=== PATIENT | male | born 1960 | race Caucasian/White ===

== ENCOUNTER 2017-09-16 09:09 | Emergency (ER) | payer SELFPAY ==
[2017-09-16 09:23] VITALS: BP 153/81; PULSE 77; RESP 20; TEMP 36.6; O2SAT 99; BMI 22.1
--- NOTE | 2017-09-16 09:28 | XR_ITS ---
XR chest 2V HISTORY: ITS.REASON: congestion ORDERING PHYSICIAN: Abigail Marks PATIENT AGE: 57 years COMPARISON: 03/24/2016 FINDINGS: The cardiomediastinal silhouette and pulmonary vascularity are within normal limits. No lobar consolidation or collapse is evident. There is hyperinflation with attenuation of the peripheral pulmonary vessels consistent with COPD/emphysema. There are apical blebs. Suture line is present in the left upper lobe. No definite pneumothorax. No significant change from the previous exam. There are mild degenerative changes in the thoracic spine. A nonspecific nodular opacity overlies the fifth interspace on the left anteriorly similar to previous exam and may be due to nipple shadow.. No acute bony abnormalities. IMPRESSION: 1. No acute finding. 2. COPD/emphysema with biapical blebs
--- NOTE | 2017-09-16 09:28 | HMH.EDUTC ---
[facility] [place] Impression: Sinusitis Clinical Impression: (Ruled Out): Upper respiratory infection Disposition: Home, Self-Care Condition on Discharge: Good Instructions: Sinus Headache, DI for Sinusitis Additional Instructions: Sinus infection Start antibiotic. Sinus infections may take 2-3 days to notice much improvement so be sure to use conservative measures as discussed for symptoms Lots of Fluids Sleep elevated Humidifer/vaporizer You recieved and injection in the office today, Start your prescription antibiotics tomorrow as a continue to care Prescriptions: Albuterol Sulfate [Albuterol HFA Inhaler] 2 puffs IH Q6HP PRN #1 inh PRN Reason: Shortness Of Breath Or Wheezing cephALEXin [Keflex 500mg Cap] 500 mg PO Q6H #28 cap Forms: Work/School Release Time of Disposition: 10:22 Medical Decision Making - Medical Records Medical records reviewed: Yes: I reviewed the patient's medical records. Vital Signs: 09/16/17 09:23 Temperature 97.8 F Temperature Source Temporal Artery Scan Pulse Rate [Right] 77 Respiratory Rate 20 Blood Pressure [Right Arm] 153/81 Blood Pressure Mean [Right Arm] 105 Blood Pressure Source [Right Arm] Automatic Cuff Blood Pressure Position [Right Arm] Sitting 02 Sat by Pulse Oximetry 99 Oxygen Delivery Method Room Air - Radiology Data #1 Image(s): Chest Image Reviewed: Yes I discussed the image results w/the radiologist - Lyle Inquiry Pt receiving controlled substance: No Lyle was queried for this patient: No [facility] [place] - General Stated complaint: congestion Mode of Arrival: Ambulatory Source of Information: Patient Limitations: No Limitations Description of Symptoms (Recalled from Triage Doc. by RN): CONGESTION X1 WEEK HEENT Symptoms (Recalled from RN notes): Yes Resp Symptoms (Recalled from RN notes): No Skin Symptoms (Recalled from RN notes): No MS Symptoms (Recalled from RN notes): No Functional Status (Recalled from RN notes): N - History of Present Illness Provider Complaint: Patient state that he has been having cough and congestion now for over a week State that his head and sinuses feels congested and he is having drainage State that he has been having a productive cough but not sure what color it is he has been coughing up and cough is worse in the morning after he wakes up. Denies fever that he knows up but he has not checked it - Related Data Previous Rx's Medication Instructions Recorded Albuterol Sulfate [Albuterol HFA 2 puffs IH Q6HP PRN #1 inh 09/16/17 Inhaler] cephALEXin [Keflex 500mg Cap] 500 mg PO Q6H #28 cap 09/16/17 Allergies Allergy/AdvReac Type Severity Reaction Status Date / Time No Known Allergies Allergy Verified 09/16/17 09:26 - Worker's Comp Is this a Worker's Comp case?: No [facility] History I have reviewed the patient's past medical history: Yes - *Social History Smoking Status: Current every day smoker Tobacco Type: cigarettes Alcohol Intake: never - Psychiatric History Expresses thoughts of harming self/others: None Suicide Plan Description: No Plan ROS Obtained: Yes All systems reviewed & no additional complaints - ENT Ears, Nose, Mouth, and Throat: Reports sinus pain, Reports sinus pressure, Reports sore throat - Cardiovascular Cardiovascular: Denies chest pain - Respiratory Respiratory: Yes chest congestion, Yes cough Physical Exam - General General appearance: alert, in no apparent distress - Expanded ENT Exam Nose exam: Present: sinus tenderness Nasal speculum exam: Bilateral: other (Reports thick yellowish green drainage) Comment: Throat red, irritated drainage noted in back of throat - Chest Chest inspection: Present: normal inspection, symmetric chest wall rise. Absent: tenderness - Respiratory Respiratory exam: Present: normal lung sounds bilaterally. Absent: respiratory distress, wheezes - Cardiovascular Cardiovascular exam: Present: regular
--- NOTE | 2017-09-16 09:31 | ED_ITS ---
[facility] – [place] Clinical Impression: Sinusitis Clinical Impression: (Ruled Out): Upper respiratory infection Disposition: Home, Self-Care Condition on Discharge: Good Instructions: Sinus Headache, DI for Sinusitis Additional Instructions: Sinus infection Start antibiotic. Sinus infections may take 2-3 days to notice much improvement so be sure to use conservative measures as discussed for symptoms Lots of Fluids Sleep elevated Humidifer/vaporizer You recieved and injection in the office today, Start your prescription antibiotics tomorrow as a continue to care Prescriptions: Albuterol Sulfate [Albuterol HFA Inhaler] 2 puffs IH Q6HP PRN #1 inh PRN Reason: Shortness Of Breath Or Wheezing cephALEXin [Keflex 500mg Cap] 500 mg PO Q6H #28 cap Forms: Work/School Release Time of Disposition: 10:22 Medical Decision Making - Medical Records Medical records reviewed: Yes: I reviewed the patient's medical records. Vital Signs: 09/16/17 09:23 Temperature 97.8 F Temperature Source Temporal Artery Scan Pulse Rate [Right] 77 Respiratory Rate 20 Blood Pressure [Right Arm] 153/81 Blood Pressure Mean [Right Arm] 105 Blood Pressure Source [Right Arm] Automatic Cuff Blood Pressure Position [Right Arm] Sitting 02 Sat by Pulse Oximetry 99 Oxygen Delivery Method Room Air - Radiology Data #1 Image(s): Chest Image Reviewed: Yes I discussed the image results w/the radiologist - Lyle Inquiry Pt receiving controlled substance: No Lyle was queried for this patient: No [facility] [place] HPI - General Stated complaint: congestion Mode of Arrival: Ambulatory Source of Information: Patient Limitations: No Limitations Description of Symptoms (Recalled from Triage Doc. by RN): CONGESTION X1 WEEK HEENT Symptoms (Recalled from RN notes): Yes Resp Symptoms (Recalled from RN notes): No Skin Symptoms (Recalled from RN notes): No MS Symptoms (Recalled from RN notes): No Functional Status (Recalled from RN notes): N - History of Present Illness Provider Complaint: Patient state that he has been having cough and congestion now for over a week State that his head and sinuses feels congested and he is having drainage State that he has been having a productive cough but not sure what color it is he has been coughing up and cough is worse in the morning after he wakes up. Denies fever that he knows up but he has not checked it - Related Data Previous Rx's Medication Instructions Recorded Albuterol Sulfate [Albuterol HFA 2 puffs IH Q6HP PRN #1 inh 09/16/17 Inhaler] cephALEXin [Keflex 500mg Cap] 500 mg PO Q6H #28 cap 09/16/17 Allergies Allergy/AdvReac Type Severity Reaction Status Date / Time No Known Allergies Allergy Verified 09/16/17 09:26 - Worker's Comp Is this a Worker's Comp case?: No [facility] History I have reviewed the patient's past medical history: Yes - *Social History Smoking Status: Current every day smoker Tobacco Type: cigarettes Alcohol Intake: never - Psychiatric History Expresses thoughts of harming self/others: None Suicide Plan Description: No Plan ROS Obtained: Yes All systems reviewed & no additional complaints - ENT Ears, Nose, Mouth, and Throat: Reports sinus pain, Reports sinus pressure, Reports sore throat - Cardiovascular Cardiovascular: Denies chest pain
== END 2017-09-16 10:42 | disposition home or self-care (01) ==
PROVIDERS: Emergency Provider Nurse Practitioner
DX: J32.9 Chronic sinusitis, unspecified (principal); F17.210 Nicotine dependence, cigarettes, uncomplicated
CPT/HCPCS: 71046; 96372; 99202

== ENCOUNTER 2017-11-13 17:50 | Emergency (ER) | payer SELFPAY ==
[2017-11-13 18:08] VITALS: BP 118/81; PULSE 110; RESP 20; TEMP 37.1; O2SAT 94; BMI 20.7
--- NOTE | 2017-11-13 18:22 | XR_ITS ---
XR chest 2V HISTORY: ITS.REASON: congestion ORDERING PHYSICIAN: Abigail Marks PATIENT AGE: 57 years COMPARISON: 09/16/2017 FINDINGS: Unremarkable cardiovascular structures. There is hyperinflation with hyperlucency consistent with COPD. No lobar consolidation or collapse. No effusions or infiltrates. No acute bony anomalies. IMPRESSION: COPD, no acute finding
--- NOTE | 2017-11-13 18:28 | HMH.EDUTC ---
[facility] [place] Impression: URI (upper respiratory infection) Qualifiers: URI type: unspecified URI Qualified Code(s): J06.9 - Acute upper respiratory infection, unspecified Disposition: Home, Self-Care Condition on Discharge: Good Instructions: DI for Cough -- Adult, DI for Sinusitis, Sinusitis, How to Quit Smoking Additional Instructions: Follow up with family doctor in 24-48 hours if no improvement or sooner if worsening of symptoms To ER if any life threatening symptoms like shortness of air Take medication as prescribed * Monitor Temp. Tylenol and/or Ibuprofen as needed. ER if fever is no less than 101 despite alternating Tylenol and Ibuprofen * Encourage fluids, water, Gatorade, powerade, pedialyte if /toddler/or child * Warm salt water gargles for throat irritation *Warm fluids *Sore throat lozenges *Sleep elevated *humidifier or vaporizer Lots of rest Increase fluids, water, Gatorade, powerade Stop smoking Return if needed Prescriptions: Promethazine/Dextromethorphan [Promethazine-Dm Syrup] 5 ml PO Q4HP PRN #300 ml MDD 30ML/DAY PRN Reason: Cough Albuterol Sulfate [Albuterol HFA Inhaler] 2 puffs IH Q6HP PRN #1 inh PRN Reason: Shortness Of Breath Or Wheezing Azithromycin [Z-Martin 250mg Tab] 250 mg PO UD DOSE PK #6 tab predniSONE [Prednisone 20mg Tab] 20 mg PO BID #10 tab Time of Disposition: 18:53 Medical Decision Making - Medical Records Medical records reviewed: Yes: I reviewed the patient's medical records. - Lyle Inquiry Pt receiving controlled substance: No Lyle was queried for this patient: No Vital Signs: 11/13/17 18:08 Temperature 98.8 F Temperature Source Temporal Artery Scan Pulse Rate [Right] 110 H Respiratory Rate 20 Blood Pressure [Right Arm] 118/81 Blood Pressure Mean [Right Arm] 93 Blood Pressure Source [Right Arm] Automatic Cuff Blood Pressure Position [Right Arm] Sitting 02 Sat by Pulse Oximetry 94 L Oxygen Delivery Method Room Air Orders (Tests/Meds): ED MEDICATIONS Discontinued Medications Generic Name Dose Route Start Last Admin Trade Name Freq PRN Reason Stop Dose Admin Albuterol/Ipratropium 3 ml 11/13/17 18:42 11/13/17 18:46 Duoneb 3ml Neb IH 11/13/17 18:43 3 ml ONCE ONE Administration ORDERS Category Date Time Status Chest XR 2 view (NOT portable) [XR chest 2V] Stat Exams 11/13/17 18:22 Taken [facility] [place] - General Stated complaint: Conjestion Time Seen by Provider: 11/13/17 18:20 Mode of Arrival: Ambulatory Source of Information: Patient Limitations: No Limitations Description of Symptoms (Recalled from Triage Doc. by RN): cough, congestion x1 wk HEENT Symptoms (Recalled from RN notes): Yes Resp Symptoms (Recalled from RN notes): No Skin Symptoms (Recalled from RN notes): No MS Symptoms (Recalled from RN notes): No Functional Status (Recalled from RN notes): N - History of Present Illness Provider Complaint: Patient state that he has been having cough and sinus congestion State that he wanted to come in and get checked before it got too bad States that over the last couple days he feels like his sinus is draining into his chest and making his cough worse - Related Data Previous Rx's Medication Instructions Recorded Albuterol Sulfate [Albuterol HFA 2 puffs IH Q6HP PRN #1 inh 09/16/17 Inhaler] cephALEXin [Keflex 500mg Cap] 500 mg PO Q6H #28 cap 09/16/17 Albuterol Sulfate [Albuterol HFA 2 puffs IH Q6HP PRN #1 inh 11/13/17 Inhaler] Azithromycin [Z-Martin 250mg Tab] 250 mg PO UD DOSE PK #6 tab 11/13/17 Promethazine/Dextromethorphan 5 ml PO Q4HP PRN #300 ml MDD 11/13/17 [Promethazine-Dm Syrup] 30ML/DAY predniSONE [Prednisone 20mg 20 mg PO BID #10 tab 11/13/17 Tab] Allergies Allergy/AdvReac Type Severity Reaction Status Date / Time No Known Allergies Allergy Verified 09/16/17 09:26 - Worker's Comp Is this a Worker's Comp case?: No [facility] History I have reviewed the
--- NOTE | 2017-11-13 18:35 | ED_ITS ---
[facility] [place] Impression: URI (upper respiratory infection) Qualifiers: URI type: unspecified URI Qualified Code(s): J06.9 - Acute upper respiratory infection, unspecified Disposition: Home, Self-Care Condition on Discharge: Good Instructions: DI for Cough -- Adult, DI for Sinusitis, Sinusitis, How to Quit Smoking Additional Instructions: Follow up with family doctor in 24-48 hours if no improvement or sooner if worsening of symptoms To ER if any life threatening symptoms like shortness of air Take medication as prescribed * Monitor Temp. Tylenol and/or Ibuprofen as needed. ER if fever is no less than 101 despite alternating Tylenol and Ibuprofen * Encourage fluids, water, Gatorade, powerade, pedialyte if /toddler/or child * Warm salt water gargles for throat irritation *Warm fluids *Sore throat lozenges *Sleep elevated *humidifier or vaporizer Lots of rest Increase fluids, water, Gatorade, powerade Stop smoking Return if needed Prescriptions: Promethazine/Dextromethorphan [Promethazine-Dm Syrup] 5 ml PO Q4HP PRN #300 ml MDD 30ML/DAY PRN Reason: Cough Albuterol Sulfate [Albuterol HFA Inhaler] 2 puffs IH Q6HP PRN #1 inh PRN Reason: Shortness Of Breath Or Wheezing Azithromycin [Z-Martin 250mg Tab] 250 mg PO UD DOSE PK #6 tab predniSONE [Prednisone 20mg Tab] 20 mg PO BID #10 tab Time of Disposition: 18:53 Medical Decision Making - Medical Records Medical records reviewed: Yes: I reviewed the patient's medical records. - Lyle Inquiry Pt receiving controlled substance: No Lyle was queried for this patient: No Vital Signs: 11/13/17 18:08 Temperature 98.8 F Temperature Source Temporal Artery Scan Pulse Rate [Right] 110 H Respiratory Rate 20 Blood Pressure [Right Arm] 118/81 Blood Pressure Mean [Right Arm] 93 Blood Pressure Source [Right Arm] Automatic Cuff Blood Pressure Position [Right Arm] Sitting 02 Sat by Pulse Oximetry 94 L Oxygen Delivery Method Room Air Orders (Tests/Meds): ED MEDICATIONS Discontinued Medications Generic Name Dose Route Start Last Admin Trade Name Freq PRN Reason Stop Dose Admin Albuterol/Ipratropium 3 ml 11/13/17 18:42 11/13/17 18:46 Duoneb 3ml Neb IH 11/13/17 18:43 3 ml ONCE ONE Administration ORDERS Category Date Time Status Chest XR 2 view (NOT portable) [XR chest 2V] Stat Exams 11/13/17 18:22 Taken [facility] [place] - General Stated complaint: Conjestion Time Seen by Provider: 11/13/17 18:20 Mode of Arrival: Ambulatory Source of Information: Patient Limitations: No Limitations Description of Symptoms (Recalled from Triage Doc. by RN): cough, congestion x1 wk HEENT Symptoms (Recalled from RN notes): Yes Resp Symptoms (Recalled from RN notes): No Skin Symptoms (Recalled from RN notes): No MS Symptoms (Recalled from RN notes): No Functional Status (Recalled from RN notes): N - History of Present Illness Provider Complaint: Patient state that he has been having cough and sinus congestion State that he wanted to come in and get checked before it got too bad States that over the last couple days he feels like his sinus is draining into his chest and making his cough worse - Related Data Previous Rx's Medication Instructions Recorded Albuterol Sulfate [Albuterol HFA 2 puffs IH Q6HP PRN #1 inh
[2017-11-13 18:58] VITALS: BP 118/81; PULSE 110; RESP 20; TEMP 37.1
== END 2017-11-13 19:02 | disposition home or self-care (01) ==
PROVIDERS: Emergency Provider Nurse Practitioner
DX: J32.9 Chronic sinusitis, unspecified (principal); J44.9 Chronic obstructive pulmonary disease, unspecified; F17.210 Nicotine dependence, cigarettes, uncomplicated
CPT/HCPCS: 71046; 99201

== ENCOUNTER 2017-11-23 09:16 | Emergency (ER) | payer MEDICAID, SELFPAY ==
[2017-11-23 09:24] VITALS: BP 115/70; PULSE 100; RESP 20; TEMP 36.9; O2SAT 94; BMI 22.8
--- NOTE | 2017-11-23 09:40 | HMH.EDUTC ---
[facility] – [place] Clinical Impression: COPD with exacerbation, Acute sinusitis with symptoms > 10 days Disposition: Home, Self-Care Condition on Discharge: Good Instructions: DI for Sinusitis, DI for Chronic Obstructive Pulmonary Disease Additional Instructions: * STOP SMOKING!!!! * start antibiotic today. Be sure to complete entire prescription even if feeling better. * Your symptoms are likely a result of your chronic lung disease and possibly a virus as well. An antibiotic will not make you feel better. Antibiotics are for bacterial infections. Viruses have to run their course with treating the symptoms. Your chronic lung disease has to be managed with other medications. I understand you would prefer to have an antibiotic because that is what has made you feel better in the past and I will give you one only for that reason. Remember that as we discussed, antibiotics do come with side effects and risk including allergic reactions and resistance. Resistance to antibiotics can cause serious complications in the future if there is no antibiotic to treat an infection you have. Carefully consider this before starting antibiotics for symptoms that are likely viral or a result of a chronic condition. * Monitor Temp. Follow up if fever develops. * humidifier/vaporizer/hot steamy shower * Albuterol/rescue Inhaler every 4-6 hours as needed like we discussed. Should help open airways and improve cough, wheezing, shortness of breath. * New Anoro/sample inhaler one inhale once daily. Use as we demonstrated. PROVIDED with 7 day sample and prescription discount card. This is the only inhaler for COPD that I have to offer as a sample. You might need a different one depending on your level of COPD so BE SURE to follow up with a primary care doctor. * Mucinex during the day for your cough and cough suppressant only at night. Be sure to drink lots of water. Insurance may not cover a prescription of mucinex. Might be cheaper to get 400mg tablets and take 2 tablets morning, midday and evening all with lots of water. * Promethazine DM cough syrup prescribed last week will cause drowsiness. Use it only at night. No driving, operating machinery or caring for small children after taking it. * Start steroid tomorrow as you had an injection in clinic today. Helps with inflammation therefore, cough and wheezing. Follow directions on package. Rvwd side effects. Pt reports they have taken them before. FOLLOW UP: Due to the sudden passing of your family physician last year, we have provided you with a list of providers accepting patients. I would encourage you find a new primary care provider and make an appt JAYY as it can take weeks to get a new patient appointment. Your symptoms today are the result of a chronic lung condition that without treatment and continued smoking, will continue to get worse. You will continue to have flare-ups without daily medication. These medications can be expensive but your primary care doctor can typically help with samples/coupon codes. In the meantime, follow up in the clinic or ER for new, worsening or persistent symptoms. Prescriptions: Amoxicillin [Amoxicillin 500mg Cap] 500 mg PO TID #30 cap predniSONE [Deltasone 10mg tablet] 10 mg PO BID #10 tab Umeclidinium Brm/Vilanterol Tr [Anoro Ellipta 62.5-25 Mcg INH] 1 each IH DAILY #1 blst.w.dev Time of Disposition: 10:30 Medical Decision Making - Medical Records Medical records reviewed: Yes: I reviewed the patient's medical records. MR Comment: rvwd 11/13 progress note and CXR - Lyle Inquiry Pt receiving controlled substance: No Vital Signs: 11/23/17 09:24 Temperature 98.4 F Temperature Source Oral Pulse Rate [Right Brachial] 100 H Respiratory Rate 20 Blood Pressure [Right Arm] 115/70 Blood Pressure Mean [Right Arm] 85 Blood Pressure Source [Right Arm] Automatic Cuff Blood Pressure Position [Right Arm] Sitting 02 Sat by Pulse Oximetry 94 L Oxygen Delivery Method Room Air
[2017-11-23 09:55] VITALS: PULSE 92
[2017-11-23 10:48] VITALS: BP 120/68; PULSE 88; RESP 20; TEMP 36.8; O2SAT 95
== END 2017-11-23 10:50 | disposition home or self-care (01) ==
PROVIDERS: Emergency Provider Nurse Practitioner Family
DX: J44.1 Chronic obstructive pulmonary disease with (acute) exacerbation (principal); J01.90 Acute sinusitis, unspecified; F17.210 Nicotine dependence, cigarettes, uncomplicated
CPT/HCPCS: 96372; 99201

== ENCOUNTER → 2017-12-28 09:42 | Outpatient (REF) | payer MEDICAID, SELFPAY ==
[2017-12-28 13:36] LABS: Basophils # 0.1 K/mm3 (0-0.2); Basophils % 1.3 % (0.1-2.0); Eosinophils # 0.2 K/mm3 (0.0-0.4); Eosinophils % 3.2 % (0.1-12.0); Hematocrit 50.9 % (42.0-52.0); Lymphocytes # 1.8 K/mm3 (0.7-4.5); Lymphocytes % 31.7 K/mm3 (10-50); Mean Corpuscular HGB Conc 33.4 g/dL (31.8-35.4); Mean Corpuscular Hemoglobin 31.5 pg (27.0-31.2); Mean Corpuscular Volume 94.2 fl (80-94); Mean Platelet Volume 8.1 fl (7.4-10.4); Monocytes # 0.5 K/mm3 (0.1-1.0); Monocytes % 8.5 % (1.7-9.3); Neutrophils # 3.2 K/mm3 (1.8-7.8); Neutrophils % 55.3 % (37.0-80.0); Platelet Count 312 K/mm3 (142-424); Red Cell Distribution Width 12.5 % (11.5-17.5); White Blood Count 5.8 K/mm3 (4.8-10.8)
[2017-12-28 14:06] LABS: Alanine Aminotransferase 18 U/L (12-78); Albumin Level 4.3 gm/dL (3.4-5.0); Albumin/Globulin Ratio 1.3 (1.1-1.8); Alkaline Phosphatase 94 U/L (46-116); Anion Gap 10.7 mEq/L (5-15); Aspartate Amino Transferase 17 U/L (15-37); Bilirubin,Total 0.6 mg/dL (0.2-1.0); Blood Urea Nitrogen 11 mg/dL (7-18); Calcium 9.6 mg/dL (8.5-10.1); Carbon Dioxide 31 mmol/L (21.0-32.0); Chloride 105 mmol/L (98-107); Cholesterol 184 mg/dL (140-200); Creatinine,Serum 0.84 mg/dL (0.70-1.30); Estimated Glomerular Filt Rate 95 ml/min (>60); Free T4 (Free Thyroxine) 0.97 ng/dl (0.76-1.46); GFR (African American) 115 ML/MIN (>60); Globulin 3.2 gm/dl (1.3-3.2); Glucose 91 mg/dL (74-106); HDL Cholesterol 46 mg/dL (27-67); LDL Cholesterol 121 mg/dL (0-130); Potassium 4.7 mmoL/L (3.5-5.1); Sodium 142 mmol/L (136-145); Thyroid Stimulating Hormone 0.89 uIU/ml (0.358-3.740); Total Protein,Serum 7.5 gm/dL (6.4-8.2); Triglycerides 85 mg/dL (30-200); VLDL Cholesterol 17 mg/dL (0-40)
[2017-12-28 14:15] LABS: Erythrocyte Sedimentation Rate 4 mm/hr (0-20)
== END ==
LOC: LAB 09:42
PROVIDERS: Visit Provider Emergency Medicine
DX: J44.1 Chronic obstructive pulmonary disease with (acute) exacerbation (principal)
CPT/HCPCS: 80053; 80061; 84439; 84443; 85025; 85651

== ENCOUNTER 2018-01-08 08:50 | Outpatient (RCR) | payer MEDICAID, SELFPAY ==
--- NOTE | 2018-01-08 09:40 | HMH.PTOPEV ---
PT Outpatient Evaluation Rehab PT Outpatient Evaluation Start: 01/08/18 08:52 Freq: Status: Active Protocol: Document 01/08/18 09:31 OTILIA (Rec: 01/08/18 09:40 PHOKALEE [id number]) Electronically Signed By Giovanni Gonzalez, PT 01/08/18 09:31 Outpatient Therapy Subjective History Subjective History Pt presents with c/o pain in low back and moving into left LE to knee distally x > 10 yrs . Pt reports frequent increases in pain, especially with bending and lifting. He states that he had previous MRI and X-rays performed but nothing in the past 5 years. He c/o pain being constant, but not farther than his knee in the left LE. Chief Complaint Pain Symptom Type Ache Sharp Numbness Tingling Symptoms Relieved By Heat Symptoms Aggravated By Sitting Standing Bending/Stooping Physical Activity Walking Lifting Prior Functional Limitations None Current Functional Limitations Lifting Standing Walking Bending/Stooping Symptom Description Constant but Variable Level of pain today (0-10) 4 Pain scale - at its worst (0-10) 10 Lumbopelvic Eval Accessory Movement L2 bilateral L3 bilateral L4 bilateral L5 bilateral S1 bilateral Range of Motion Lumbar Spine Active Flexion Range of 0-55 Motion (degrees) Lumbar Spine Active Extension Range of 0-10 Motion (degrees) Left Lumbar Spine Lateral Flexion Active 0-10 Range of Motion (degrees) Right Lumbar Spine Lateral Flexion 0-15 Active Range of Motion (degrees) Manual Muscle Test Bilateral Knee Extension Strength Grade 5 Normal Knee Flexion Strength Grade 5 Normal Hip Flexion Strength Grade 4 Good Ankle Dorsiflexion Strength Grade 5 Normal Gastronemius/Soleus Strength Grade 5 Normal DTR Rt Patellar 2+ Lt Patellar 2+ Rt Gastroc/Soleus 2+ Lt Gastroc/Soleus 2+ Special Tests Sciatic Nerve Tension
== END 2018-01-08 08:51 | disposition home or self-care (01) ==
LOC: PT 08:50
PROVIDERS: PCP Emergency Medicine; Visit Provider Emergency Medicine
DX: M54.16 Radiculopathy, lumbar region (principal)
CPT/HCPCS: 97163

== ENCOUNTER → 2018-11-08 10:53 | Outpatient (CLI) | payer OTHER, SELFPAY ==
--- NOTE | 2018-11-08 10:59 | XR_ITS ---
XR chest 2V HISTORY: 3 days cough. Smoker. Has benign spot removed from left lung many years ago-was noncancer ITS.REASON: cough ORDERING PHYSICIAN: Mary Alice Ritchie PATIENT AGE: 58 years Technique: PA and lateral chest COMPARISON: 11/13/2017. & September 16, 2017 PA & lateral chest FINDINGS: Emphysematous changes bilaterally again observed.. Lungs are hyperexpanded but clear with nothing definitely acute today. No pneumothorax no pleural effusion. No focal pneumonia. Ribs intact. Mild old wedge compression fracture T12 again noted- similar to previous studies from August 2017 Small nipple shadow likely catheter the nodular density projected over the left and possibly right fifth anterior rib Heart small cardiac silhouette due to the patient's COPD. Adrianna and mediastinal structures appear similar. No significant change since prior studies Patient appears to have prominent emphysematous changes and presumed long history of smoking. follow-up CT chest or screening CT chest if accurate history. IMPRESSION Nothing definitely acute Prominent hyperexpansion & COPD changes bilaterally Favor nodular density projected over the anterior fifth rib is most likely nipple shadow. But Consider in this smoker. Note comments in text sent
== END ==
PROVIDERS: PCP Nurse Practitioner Family; Visit Provider Nurse Practitioner Family
DX: R05 Cough (principal); R06.02 Shortness of breath
CPT/HCPCS: 71046

== ENCOUNTER 2018-11-15 15:21 | Observation (INO) ==
--- NOTE | 2018-11-15 15:50 | Emergency Department Note ---
ED Disposition Clinical Impression: Acute bronchitis with bronchospasm Disposition: Admitted as Observation Condition on Discharge: Fair Referrals: Mary Alice Ritchie APRN [Primary Care Provider] - - Critical Care Critical Care Time: No Attestation: On 11/15/18, the high probability of a clinically significant, sudden or life threatening deterioration of the following system(s) required my full and direct attention, intervention and personal management. The time I documented below is in addition to time spent performing reported procedures but includes the following listed in this critical care notation. Medical Decision Making - Lyle Inquiry Pt receiving controlled substance: No Vital Signs: 11/15/18 15:35 11/15/18 16:22 11/15/18 17:30 Temperature 98.0 F Temperature Source Oral Pulse Rate [Right Apical] 116 H 94 H 61 Respiratory Rate 18 20 Blood Pressure [Left Arm] 142/95 H 121/82 98/68 L Blood Pressure Mean [Left Arm] 110 95 78 Blood Pressure Source [Left Arm] Automatic Cuff Automatic Cuff Blood Pressure Position [Left Arm] Sitting Sitting 02 Sat by Pulse Oximetry 94 L 93 L 93 L Oxygen Delivery Method Room Air Room Air 11/15/18 18:15 Temperature Temperature Source Pulse Rate [Right Apical] 83 Respiratory Rate Blood Pressure [Left Arm] 116/68 Blood Pressure Mean [Left Arm] 84 Blood Pressure Source [Left Arm] Automatic Cuff Blood Pressure Position [Left Arm] Sitting 02 Sat by Pulse Oximetry 96 Oxygen Delivery Method - Lab Data Lab Results 11/15/18 17:00: WBC 10.8, RBC 4.89, Hgb 15.3, Hct 45.3, MCV 92.7, MCH 31.4 H, MCHC 33.9, RDW 12.8, Plt Count 412, MPV 6.7 L, Neut % (Auto) 66.7, Lymph % (Auto) 24.4, Peach % (Auto) 6.0, Eos % (Auto) 2.5, Baso % (Auto) 0.4, Neut # (Auto) 7.2, Lymph # (Auto) 2.7, Peach # (Auto) 0.7, Eos # (Auto) 0.3, Baso # (Auto) 0.0 11/15/18 17:00: Sodium 143, Potassium 3.4 L, Chloride 104, Carbon Dioxide 30, Anion Gap 12.4, BUN 13, Creatinine 0.67 L, Estimated Creat Clear 126, Estimated GFR 123, Est GFR ( Amer) 148, Glucose 94, Calcium 8.8, Total Bilirubin 0.5, AST 14 L, ALT 17, Alkaline Phosphatase 68, Total Protein 6.6, Albumin 3.4, Globulin 3.2, Albumin/Globulin Ratio 1.1 Result diagrams: 11/15/18 17:00 11/15/18 17:00 Orders (Tests/Meds): ED MEDICATIONS Generic Name Dose Route Start Last Admin Trade Name Freq PRN Reason Stop Dose Admin Sodium Chloride 10 ml 11/15/18 16:32 Saline Flush 10ml Syringe IV 12/15/18 16:31 NEEDED PRN Maintain IV Site Discontinued Medications Generic Name Dose Route Start Last Admin Trade Name Freq PRN Reason Stop Dose Admin Albuterol/Ipratropium 3 ml 11/15/18 15:40 11/15/18 15:46 Duoneb 3ml Neb IH 11/15/18 15:41 3 ml ONCE ONE Administration Methylprednisolone Sodium Succinate 125 mg 11/15/18 16:32 11/15/18 17:46 Solu-Medrol 125mg/2ml Vial IV 11/15/18 16:33 125 mg ONCE ONE Administration ORDERS Category Date Time Status CT chest wo con Stat Cat Scan 11/15/18 16:36 Taken XR chest 2V Stat Exams 11/15/18 15:40 Taken - Radiology Data #1 Image(s): Chest Image Reviewed: Yes I reviewed the patient's radiology image COPD - CT Data CT Scan: Chest Time Received: 18:[address] Reviewed: Yes: I have viewed the radiologist's interpretation Findings Narrative: CT scan interpreted by ad radiologist. Faxed report received and reviewed: Mild bronchitis. Moderate emphysema. - Physician Consults Physician Consulted: Freeman Gold Time: 18:52 Reason -: Admission Comment/Response: Agrees to admit the patient to the hospital. We discussed the patient's clinical information, including history, exam, laboratory and radiology results and ED course. Per hospital procedure, I will write temporary bridge inpatient orders on the patient. Specific orders requested by the admitting physician: Continue nebulizers and steroids Medical Decision Narrative: Prior CXR: IMPRESSION Nothing definitely acute Prominent hyperexpansion & COPD changes bilaterally Favor nodular density projected over the anterior fifth rib is most likely nipple shadow. But Consider in this smoker. Note comments in text sent Dictated By: Harrison Soto Signed By: <Electronically signed by Harrison Soto in OV> 11/08/18 1203 The patient has failed outpatient treatment. Still has heavy wheezing in the emergency department after a nebulizer treatment. He will be admitted for further treatment. General Adult HPI - General Chief complaint: Shortness of Breath/Dyspnea Stated complaint: SOA Time Seen by Provider: 11/15/18 16:26 Mode of Arrival: Ambulatory Limitations: No Limitations Description of Symptoms (Recalled from ER Triage Doc. by RN): PT arrived to the ED with c/o congestion and SOA for a week. Pt states he was seen in Dr. Gold's office and was diagnosed with bronchitis. Pt is taking an antibiotic and breathing treatments at home. - History of Present Illness HPI narrative: PCP 10/26 and 11/08. Patient states he has been sick for about 10 days. Started with chills and aches and a cough. Seen at his primary care doctor after about 3 days of illness on 11/08/18. He was started on Augmentin, steroids, nebulizer treatments, and nasal spray. He does not feel like he has gotten any better. He was sent home from work today. He says he has had sleep sitting up in a recliner all week long. He had an outpatient chest x-ray and was told he needed a follow-up CAT scan of his chest. He was also seen at his primary care provider on 10/26/18 for respiratory illness and treated with a Z-Martin. He says that he started to get better from that, felt better but not back to 100% before he got ill again. He is a smoker. - Related Data Home Medications Medication Instructions Recorded Confirmed Albuterol Sulfate [Albuterol 2.5 mg INHALATION TID 11/15/18 11/15/18 0.083% 2.5mg/3mL neb] Albuterol Sulfate [Ventolin HFA] 1 puff INHALATION Q6H 11/15/18 11/15/18 Azithromycin [Z-Martin 250mg Tab] 250 mg PO .COMPLEX 11/15/18 11/15/18 Cetirizine HCl 10 mg PO DAILY 11/15/18 11/15/18 Fluticasone Propionate 1 spray INTRANASAL QDAY 11/15/18 11/15/18 predniSONE [Deltasone 20mg 20 mg PO BID 11/15/18 11/15/18 tablet] Previous Rx's Medication Instructions Recorded fluticasone furoate 100 1 inh INHALATION DAILY #60 each 10/27/18 mcg-vilanterol 25 mcg/dose inhalation powder Allergies Allergy/AdvReac Type Severity Reaction Status Date / Time umeclidinium Allergy Mild Verified 11/08/18 09:57 [From Anoro Ellipta] [place] History - Hepatitis A Screen Drug use history?: No High risk sexual behaviors?: No History of sexually transmitted infection?: No Currently employed?: No Childcare worker?: No Do you have indoor plumbing?: Yes Do you have electricity?: Yes Attestation statement:: This patient has been screened for Hepatitis A risk factors. I have reviewed the patient's past medical history: Yes Medical History: Reports:: Chronic Obstructive Pulmonary Disease (COPD) Denies:: Diabetes Mellitus Type 1, Diabetes Mellitus Type 2, Hypertension Other Surgeries: Yes: Other Amputation: No Fractures: No - Social History Smoking Status: Current every day smoker Tobacco Type: cigarettes # Packs/Day (cigarettes): 1 Alcohol Intake: never Substance Use Type: denies use Occupational Status: employed Housing: house Household Members: significant other - Psychiatric History Expresses thoughts of harming self/others: None Suicide Plan Description: No Plan Family Hx:: Heart Attack, Cancer ROS Obtained: Yes All systems reviewed & no additional complaints - Constitutional Constitutional: Reports body ache, Reports fever(s) (At onset of illness) - ENT Ears, Nose, Mouth, and Throat: Reports nasal congestion, Reports nasal discharge, Reports sinus pressure, Denies sore throat - Cardiovascular Cardiovascular: Denies chest pain - Respiratory Respiratory: Yes cough, Yes non-productive cough, Yes dyspnea, Yes wheezing Physical Exam - General General appearance: alert, in no apparent distress - Head Head exam: atraumatic, normocephalic - Eye Eye exam: Present: normal appearance, PERRL, EOMI - ENT ENT exam: Present: normal oropharynx, mucous membranes moist, TM's normal bilaterally - Neck Neck exam: Present: normal inspection, full ROM, trachea midline - Chest Chest inspection: Present: normal inspection, symmetric chest wall rise - Respiratory Respiratory exam: Present: wheezes (Heavy wheezing diffusely), other (Rhonchi and crackles throughout) - Cardiovascular Cardiovascular exam: Present: normal rhythm, tachycardia, normal heart sounds - Abdominal Exam Abdominal exam: Present: soft. Absent: distention, tenderness - Extremities Exam Extremities exam: Present: normal inspection, full ROM - Neurological Exam Neurological exam: Present: alert, oriented X3 - Psychiatric Psychiatric exam: Present: normal affect, normal mood - Skin Skin exam: Present: warm, dry
[2018-11-15 17:13] LABS: Basophils % 0.4 % (0.1-2.0); Eosinophils # 0.3 K/mm3 (0.0-0.4); Eosinophils % 2.5 % (0.1-12.0); Hematocrit 45.3 % (42.0-52.0); Hemoglobin 15.3 g/dL (14.1-18.0); Lymphocytes # 2.7 K/mm3 (0.7-4.5); Lymphocytes % 24.4 % (10-50); Mean Corpuscular HGB Conc 33.9 g/dL (31.8-35.4); Mean Corpuscular Hemoglobin 31.4 pg (27.0-31.2); Mean Corpuscular Volume 92.7 fl (80-94); Mean Platelet Volume 6.7 fl (7.4-10.4); Monocytes # 0.7 K/mm3 (0.1-1.0); Neutrophils # 7.2 K/mm3 (1.8-7.8); Neutrophils % 66.7 % (37.0-80.0); Platelet Count 412 K/mm3 (142-424); Red Blood Count 4.89 M/mm3 (4.60-6.20); Red Cell Distribution Width 12.8 % (11.5-17.5); White Blood Count 10.8 K/mm3 (4.8-10.8)
[2018-11-15 17:24] LABS: Albumin Level 3.4 gm/dL (3.4-5.0); Albumin/Globulin Ratio 1.1 (1.1-1.8); Anion Gap 12.4 mEq/L (5-15); Bilirubin,Total 0.5 mg/dL (0.2-1.0); Calcium 8.8 mg/dL (8.5-10.1); Globulin 3.2 gm/dl (1.3-3.2); Potassium 3.4 mmoL/L (3.5-5.1); Total Protein,Serum 6.6 gm/dL (6.4-8.2)
--- NOTE | 2018-11-15 21:11 | History & Physical Report ---
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 Started with chills and aches and a cough. Seen at his primary care doctor after about 3 days of illness on 11/08/18. He was started on Augmentin, steroids, nebulizer treatments, and nasal spray. He does not feel like he has gotten any better. He was sent home from work today. He says he has had sleep sitting up in a recliner all week long. He had an outpatient chest x-ray and was told he needed a follow-up CAT scan of his chest. He was also seen at his primary care provider on 10/26/18 for respiratory illness and treated with a Z-Martin. He says that he started to get better from that, felt better but not back to 100% before he got ill again. He is a smoker. pt also reported chest tightness and inc sob with any exertion -this has increased over the last few weeks - he had court of 2 by my review [facility] History I have reviewed the patient's past medical history: Yes Medical History: Reports:: Chronic Obstructive Pulmonary Disease (COPD) Denies:: Cancer, Diabetes Mellitus Type 1, Diabetes Mellitus Type 2, Hypertension, MRSA *Have you ever received a pneumonia vaccine?: Yes *Have you received a flu vaccine this season?: Yes Other Surgeries: Yes: Other (Left Hand) Amputation: No Fractures: No - *Social History Educational Level: Completed High School Smoking Status: Current every day smoker Tobacco Type: cigarettes # Packs/Day (cigarettes): 2 Alcohol Intake: never Substance Use Type: denies use *Occupational Status:: employed Housing: house Household Members: significant other *Travel in the last 8 weeks: None - Psychiatric History Expresses thoughts of harming self/others: None Suicide Plan Description: No Plan Family Hx:: Heart Attack, Cancer Review of Systems - Review of Systems Review of systems:: pertinent systems reviewed and negative unless documented below - Constitutional Denies fever(s) - Eyes Denies change in vision - ENT Denies sore throat - *Cardiovascular Reports shortness of breath, Reports shortness of breath with activity - *Respiratory Reports cough, Reports shortness of breath, Reports shortness of breath with activity, Denies coughing up blood - *Gastrointestinal Denies abdominal pain - *Genitourinary Denies blood in urine - *Musculoskeletal Denies joint pain - Integumentary/Breasts Denies rash - *Neurologic Denies seizure-like activity - Psychiatric Denies anxiety Meds Home Medications Medication Instructions Recorded Confirmed Type fluticasone furoate 100 1 inh INHALATION DAILY #60 each 10/27/18 11/15/18 Rx mcg-vilanterol 25 mcg/dose inhalation powder Albuterol Sulfate [Albuterol 2.5 mg INHALATION TID 11/15/18 11/15/18 History 0.083% 2.5mg/3mL neb] Albuterol Sulfate [Ventolin HFA] 1 puff INHALATION Q6H 11/15/18 11/15/18 History Amoxicillin/Potassium Clav 1 tab PO BID 11/15/18 11/15/18 History [Amox-Clav 875-125 mg Tablet] Azithromycin [Z-Martin 250mg Tab] 250 mg PO .COMPLEX 11/15/18 11/15/18 History Cetirizine HCl 10 mg PO DAILY 11/15/18 11/15/18 History Fluticasone Propionate 1 spray INTRANASAL QDAY 11/15/18 11/15/18 History predniSONE [Deltasone 20mg 20 mg PO BID 11/15/18 11/15/18 History tablet] Allergies Allergy/AdvReac Type Severity Reaction Status Date / Time umeclidinium Allergy Mild Verified 11/08/18 09:57 [facility] Exam Vital signs and Labs for Last 24 Hours: Temp Pulse Resp BP Pulse Ox 97.6 F 74 18 121/78 91 L 11/15/18 20:00 11/15/18 20:16 11/15/18 20:00 11/15/18 20:00 11/15/18 20:16 Laboratory Results - last 24 hr 11/15/18 17:00: WBC 10.8, RBC 4.89, Hgb 15.3, Hct 45.3, MCV 92.7, MCH 31.4 H, MCHC 33.9, RDW 12.8, Plt Count 412, MPV 6.7 L, Neut % (Auto) 66.7, Lymph % (Auto) 24.4, Campbell % (Auto) 6.0, Eos % (Auto) 2.5, Baso % (Auto) 0.4, Neut # (Auto) 7.2, Lymph # (Auto) 2.7, Campbell # (Auto) 0.7, Eos # (Auto) 0.3, Baso # (Auto) 0.0 11/15/18 17:00: Sodium 143, Potassium 3.4 L, Chloride 104, Carbon Dioxide 30, Anion Gap 12.4, BUN 13, Creatinine 0.67 L, Estimated Creat Clear 126, Estimated GFR 123, Est GFR ( Amer) 148, Glucose 94, Calcium 8.8, Total Bilirubin 0 .5, AST 14 L, ALT 17, Alkaline Phosphatase 68, Total Protein 6.6, Albumin 3.4, Globulin 3.2, Albumin/Globulin Ratio 1.1 I & O for Last 24 hours: Intake & Output 11/13/18 11/14/18 11/15/18 11/16/18 11:59 11:59 11:59 11:59 Weight 130 lb - Constitutional no acute distress, thin, cooperative - *Routine HEENT Exam Head: Present: normocephalic Eye: Present: EOMI, PERRL ENT: Present: mucous membranes dry - *Routine Neck Exam Present: supple. Absent: JVD - *Routine Respiratory Exam Present: wheezes, distant breath sounds, diminished air movement - *Routine Cardiovascular Exam Present: RRR, murmur - *Routine Abdominal Exam Present: soft - *Routine Extremities Exam Absent: calf tenderness - Routine Back/Spine/Pelvis Exam Back/Spine: Absent: CVA tenderness - *Routine Skin Exam Present: intact - *Routine Neurological Exam Present: alert, oriented X3, CN II-XII intact - Routine Psychiatric Exam Present: normal affect Assessment and Plan (1) Panlobular emphysema Current visit: Yes Status: Acute Category: Medical Code(s): J43.1 - Panl obular emphysema (2) COPD with exacerbation Current visit: No Status: Acute Category: Medical Code(s): J44.1 - Chronic obstructive pulmonary disease with (acute) exacerbation (3) Tobacco use disorder Current visit: No Status: Acute Category: Medical Code(s): F17.200 - Nicotine dependence, unspecified, uncomplicated (4) Hypokalemia Current visit: Yes Status: Acute Category: Medical Code(s): E87.6 - Hypokalemia (5) Atypical angina Current visit: Yes Status: Acute Category: Medical Code(s): I20.8 - Other forms of angina pectoris
--- NOTE | 2018-11-16 07:26 | Pharmacy Consult Notes ---
[facility] Pharmacy VTE Monitoring - Patient Demographics Admission date: 11/15/18 Report Date: 11/16/18 Time: 07:26 Allergies/Adverse Reactions: Patient Allergies umeclidinium [From Anoro Ellipta] Allergy (Mild, Verified 11/08/18 09:57) Height: 1.75 m Weight: 58.967 kg Patient Problems: Current Active Problems Acute bronchitis with bronchospasm (Acute) - VTE Risk Labs: VTE Related Lab Results Hgb 15.3 g/dL (14.1-18.0) 11/15/18 17:00 Hct 45.3 % (42.0-52.0) 11/15/18 17:00 Plt Count 412 K/mm3 (142-424) 11/15/18 17:00 BUN 13 mg/dL (7-18) 11/15/18 17:00 Creatinine 0.67 mg/dL (0.70-1.30) L 11/15/18 17:00 Estimated Creat Clear 126 mL/min (50-200) 11/15/18 17:00 Was VTE Risk Assessment Performed: Yes VTE Score: 3 VTE Risk Level: Low Risk - Prophylaxis VTE Prophylaxis Ordered?: Yes Types of VTE Prophylaxis: TEDS Knee High Location of Applied Device: Bilateral Lower Extremeties - VTE Diagnosis Confirmed Treatment or plan recommended: Continue Current Treatment
--- NOTE | 2018-11-16 10:14 | Consult Report ---
History of Present Illness Consult date: 11/16/18 Requesting physician: Renaldo Gold Consult reason: shortness of breath Chief complaint: Cough, SOA Additional Medical History:: 1. Tobacco use, continuous of 1 1/2-2 packs/day A. Emphysema by CT of chest, 10/2018, with minimal calcification seen in proximal LAD. 2. Prior left lung surgery secondary to bacterial infection, approximately 2008 3. Prior left hand surgery, approximately 2008 (before lung surgery) with left arm nerve block and punctured lung which prompted scans finding mass in lung resulting in above lung surgery. 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 states he has been sick for about 10 days. Started with chills and aches and a cough. Seen at his primary care doctor after about 3 days of illness on 11/08/18. He was started on Augmentin, steroids, nebulizer treatments, and nasal spray. He does not feel like he has gotten any better. He was sent home from work today. He says he has had sleep sitting up in a recliner all week long. He had an outpatient chest x-ray and was told he needed a follow-up CAT scan of his chest. He was also seen at his primary care provider on 10/26/18 for respiratory illness and treated with a Z-Martin. He says that he started to get better from that, felt better but not back to 100% before he got ill again. He is a smoker. pt also reported chest tightness and inc sob with any exertion -this has increased over the last few weeks - he had peter of 2 by my review The above per Dr. Gold Cardiology consulted for evaluation of possible exertional angina equivalent in this patient with emphysema and continued tobacco use. Patient describes 2-week history of shortness of breath with some fever chills for which she has received outpatient therapy without significant resolution of symptoms. 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 He relates exposure to a lot of welding fumes and dust. Prior lung surgery due to reported lung infection approximately 10 years ago. Patient denies any chest pain or family history of early heart disease. He does not take medication for hypertension or hyperlipidemia and has no prior cardiac history. EKG today shows sinus rhythm at [address] abnormalities. Preliminary echocardiogram shows ejection fraction greater than 55% without wall motion abnormality or significant valvular heart disease. His initial troponin is normal. [facility] History Medical History: Reports:: Chronic Obstructive Pulmonary Disease (COPD) Denies:: Cancer, Diabetes Mellitus Type 1, Diabetes Mellitus Type 2, Hypertension, MRSA *Have you ever received a pneumonia vaccine?: Yes *Have you received a flu vaccine this season?: Yes Other Surgeries: Yes: Other (Left Hand) Amputation: No Fractures: No - *Social History Educational Level: Completed High School Smoking Status: Current every day smoker Tobacco Type: cigarettes # Packs/Day (cigarettes): 2 Alcohol Intake: never Substance Use Type: denies use *Occupational Status:: employed Housing: house Household Members: significant other *Travel in the last 8 weeks: None - Psychiatric History Expresses thoughts of harming self/others: None Suicide Plan Description: No Plan Family Hx:: Heart Attack, Cancer Meds Home Medications Medication Instructions Recorded Confirmed Type fluticasone furoate 100 1 inh INHALATION DAILY #60 each 10/27/18 11/15/18 Rx mcg-vilanterol 25 mcg/dose inhalation powder Albuterol Sulfate [Albuterol 2.5 mg INHALATION TID 11/15/18 11/15/18 History 0.083% 2.5mg/3mL neb] Albuterol Sulfate [Ventolin HFA] 1 puff INHALATION Q6H 11/15/18 11/15/18 History Cetirizine HCl 10 mg PO DAILY 11/15/18 11/15/18 History Fluticasone Propionate 1 spray INTRANASAL QDAY 11/15/18 11/15/18 History Allergies Allergy/AdvReac Type Severity Reaction Status Date / Time umeclidinium Allergy Mild Verified 11/08/18 09:57 [From Anoro Ellipta] Review of Systems - *Cardiovascular Reports shortness of breath, Reports shortness of breath with activity, Denies chest pain - *Respiratory Reports cough, Reports shortness of breath, Reports shortness of breath with activity - *Gastrointestinal Denies abdominal pain, Denies loose stools - *Genitourinary Denies blood in urine - *Musculoskeletal Reports joint pain, Reports back pain - *Neurologic Denies seizure-like activity Exam Vital signs and Labs for Last 24 Hours: Temp Pulse Resp BP Pulse Ox 98.6 F 97 H 17 113/70 93 L 11/16/18 07:40 11/16/18 07:40 11/16/18 07:40 11/16/18 07:40 11/16/18 07:40 Laboratory Results - last 24 hr 11/15/18 17:00: WBC 10.8, RBC 4.89, Hgb 15.3, Hct 45.3, MCV 92.7, MCH 31.4 H, MCHC 33.9, RDW 12.8, Plt Count 412, MPV 6.7 L, Neut % (Auto) 66.7, Lymph % (Auto) 24.4, F[place] % (Auto) 6.0, Eos % (Auto) 2.5, Baso % (Auto) 0.4, Neut # (Auto) 7.2, Lymph # (Auto) 2.7, [place] # (Auto) 0.7, Eos # (Auto) 0.3, Baso # (Auto) 0.0 11/15/18 17:00: Sodium 143, Potassium 3.4 L, Chloride 104, Carbon Dioxide 30, Anion Gap 12.4, BUN 13, Creatinine 0.67 L, Estimated Creat Clear 126, Estimated GFR 123, Est GFR ( Amer) 148, Glucose 94, Calcium 8.8, Total Bilirubin 0.5, AST 14 L, ALT 17, Alkaline Phosphatase 68, Total Protein 6.6, Albumin 3.4, Globulin 3.2, Albumin/Globulin Ratio 1.1 11/16/18 08:52: Troponin I < 0.02 I & O for Last 24 hours: Intake & Output 11/13/18 11/14/18 11/15/18 11/16/18 11:59 11:59 11:59 11:59 Intake Total 360 / 360 Balance 360 / 360 Weight 130 lb Microbiology Reports for the Last 24 Hours: Microbiology 11/16/18 05:50 Sputum - Expectorated Sputum Gram Stain - Final - *Routine HEENT Exam Head: Present: normocephalic Eye: Present: EOMI, PERRL ENT: Present: mucous membranes moist - *Routine Neck Exam Present: supple. Absent: JVD, carotid bruit - *Routine Respiratory Exam Present: decreased breath sounds, CTA bilaterally, diminished air movement. Absent: accessory muscle use, rales, rhonchi, wheezes - *Routine Cardiovascular Exam Present: RRR. Absent: murmur, gallop, rubs - *Routine Abdominal Exam Present: soft. Absent: tenderness, distended, guarding - *Routine Extremities Exam Absent: edema, calf tenderness - *Routine Neurological Exam Present: alert, oriented X3, moving all extremities Assessment and Plan (1) Panlobular emphysema Current visit: Yes Status: Acute Category: Medical Code(s): J43.1 - Panlobular emphysema (2) COPD with exacerbation Current visit: No Status: Acute Category: Medical Code(s): J44.1 - Chronic obstructive pulmonary disease with (acute) exacerbation (3) Tobacco use disorder Current visit: No Status: Acute Category: Medical Code(s): F17.200 - Nicotine dependence, unspecified, uncomplicated (4) Hypokalemia Current visit: Yes Status: Acute Category: Medical Code(s): E87.6 - Hypokalemia (5) Atypical angina Current visit: Yes Status: Acute Category: Medical Code(s): I20.8 - Other forms of angina pectoris - Assessment and plan all Dx Assessment and Plan for all problems:: 1. Exertional shortness of breath (question atypical angina in this patient with emphysema) with normal troponin, unremarkable EKG and preliminary echocardiogram showing preserved ejection fraction. PETER score of 1 (2 episodes of chest pain/shortness of breath in the last 48 hours) in fdc smoker. We will plan to proceed with [employer] since the patient would not be able to walk long enough to achieve an adequate test. I would like to give him another 24 hours of pulmonary therapy. He does not have any wheezing on exam today. 2. Discussed with Dr. Gold regarding pulmonary consult with Dr. Martinez. He agrees. 3. Hypokalemia, will replace today 4. Borderline hypotension with mild tachycardia (likely reactionary to pulmonary issues). Will try low dose bisoprolol 2.5 mg daily for anti-angina effect.
[2018-11-16 11:11] LABS: ABG Base Excess 4.4 mmol/L (-2.4-2.3); ABG Oxygen Saturation 96 % (90-100); ABG PCO2 39.1 mmhg (35.0-45.0); ABG PH 7.47 mmol/L (7.35-7.45); ABG PO2 74.6 mmhg (80-100); ABG TCO2 29.2 mmhg (23-27)
[2018-11-16 11:13] LABS: Allen's Test Acceptable; Oxygen RA %
--- NOTE | 2018-11-16 12:54 | Consult Report ---
*Admission Date: 11/15/18 *Chief complaint: I got so short of breath. *History of present illness: Mr. Min is a 58-year-old man who was diagnosed with "COPD and emphysema" years ago. He began smoking when he was in his mid teens and smoked 1-1-1/2 packages of cigarettes daily until this admission. A few weeks ago, he developed an increase in cough and sputum production associated with increased shortness of breath and wheezing. He was treated with antibiotics and corticosteroids as well as bronchodilators by nebulizer and improved briefly. About a week and a half ago, he developed chills associated with headache and an increase in dyspnea and cough. Now, the cough is largely nonproductive but it was associated with increased dyspnea and it interrupted his sleep. His longtime girlfriend had a similar illness just before he did. Mr. Min has improved considerably since admission and feels much better. He has had repetitive episodes of bronchitis or pneumonia for years and, between attacks, he has a daily cough, generally in the morning, which is productive of small amounts of clear sputum. He becomes breathless walking briskly for perhaps 1/2-1 block and if he is lifting something at work. 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 The job led to a change in shift for him and he is eating more erratically now. Although his appetite is good, he has lost about 20 pounds in the last 7 or 8 months. He had been on no regular inhaler therapy except for as needed albuterol for years until you started him recently on Breo. He believes it is helping. He has had no chest pain and has no history of cardiovascular disease. He does have frequent episodes of GERD manifested as heartburn and he takes over-the- counter omeprazole which helps. He drinks at least 4 Mountain Dew's a day and a cup of coffee in the morning. Mr. Min has the significant past history of left lung resection because of a nodular density and suspected malignancy. 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 He does not recall receiving any antibiotic therapy afterwards. The surgery was performed in 2001. [facility] History Medical History: Reports:: Chronic Obstructive Pulmonary Disease (COPD) Denies:: Cancer, Diabetes Mellitus Type 1, Diabetes Mellitus Type 2, Hypertension, MRSA *Have you ever received a pneumonia vaccine?: Yes *Have you received a flu vaccine this season?: Yes Other Surgeries: Yes: Other (Left Hand) Amputation: No Fractures: No - *Social History Educational Level: Completed High School Smoking Status: Current every day smoker Tobacco Type: cigarettes # Packs/Day (cigarettes): 2 Alcohol Intake: never Substance Use Type: denies use *Occupational Status:: employed Housing: house Household Members: significant other *Travel in the last 8 weeks: None Comment: He and his significant other have been together for 29 years. She suffers from depression and is on disability for this. He has 2 children and I think sees only his son who lives nearby. He has a couple of grandchildren but only sees the one with the son. - Psychiatric History Expresses thoughts of harming self/others: None Suicide Plan Description: No Plan Family Hx:: Heart Attack, Cancer Comment: He does not recall any significant family history of a chronic lung disease. Review of Systems - Review of Systems Apart from the systems were reviewed in the present illness the rest of a 14 point review of systems is currently negative. - Constitutional Comments: See HPI - *Neurologic Denies seizure-like activity Meds Home Medications Medication Instructions Recorded Confirmed Type fluticasone furoate 100 1 inh INHALATION DAILY #60 each 10/27/18 11/15/18 Rx mcg-vilanterol 25 mcg/dose inhalation powder Albuterol Sulfate [Albuterol 2.5 mg INHALATION TID 11/15/18 11/15/18 History 0.083% 2.5mg/3mL neb] Albuterol Sulfate [Ventolin HFA] 1 puff INHALATION Q6H 11/15/18 11/15/18 History Cetirizine HCl 10 mg PO DAILY 11/15/18 11/15/18 History Fluticasone Propionate 1 spray INTRANASAL DAILY 11/15/18 11/16/18 History Allergies Allergy/AdvReac Type Severity Reaction Status Date / Time umeclidinium Allergy Mild Verified 11/08/18 09:57 [From Anoro Ellipta] Exam Vital signs and Labs for Last 24 Hours: Temp Pulse Resp BP Pulse Ox 98.6 F 89 17 113/70 93 L 11/16/18 07:40 11/16/18 09:57 11/16/18 07:40 11/16/18 07:40 11/16/18 07:40 Laboratory Results - last 24 hr 11/15/18 17:00: WBC 10.8, RBC 4.89, Hgb 15.3, Hct 45.3, MCV 92.7, MCH 31.4 H, MCHC 33.9, RDW 12.8, Plt Count 412, MPV 6.7 L, Neut % (Auto) 66.7, Lymph % (Auto) 24.4, [place] % (Auto) 6.0, Eos % (Auto) 2.5, Baso % (Auto) 0.4, Neut # (Auto) 7.2, Lymph # (Auto) 2.7, [place] # (Auto) 0.7, Eos # (Auto) 0.3, Baso # (Auto) 0.0 11/15/18 17:00: Sodium 143, Potassium 3.4 L, Chloride 104, Carbon Dioxide 30, Anion Gap 12.4, BUN 13, Creatinine 0.67 L, Estimated Creat Clear 126, Estimated GFR 123, Est GFR ( Amer) 148, Glucose 94, Calcium 8.8, Total Bilirubin 0.5, AST 14 L, ALT 17, Alkaline Phosphatase 68, Total Protein 6.6, Albumin 3.4, Globulin 3.2, Albumin/Globulin Ratio 1.1 11/16/18 08:52: Troponin I < 0.02 11/16/18 09:06: Specimen Source Left radial, O2 % Ra, ABG pH 7.47 H, ABG pCO2 39.1, ABG pO2 74.6 L, ABG HCO3 28.0 H, ABG Total CO2 29.2 H, ABG O2 Saturation 96, ABG Base Excess 4.4 H, Kyree Test Acceptable I & O for Last 24 hours: Intake & Output 11/13/18 11/14/18 11/15/18 11/16/18 23:59 23:59 23:59 23:59 Intake Total 360 / 360 Balance 360 / 360 Weight 58.967 kg 58.967 kg Microbiology Reports for the Last 24 Hours: Microbiology 11/16/18 05:50 Sputum - Expectorated Sputum Gram Stain - Final Narrative: Mr. Min is a very pleasant man of asthenic build who is sitting in bed having lunch. He was in no acute distress and could give me a clear history. Vital signs: See this section of the record. HEENT: Sclerae clear; conjunctivae pink; external nares unremarkable; oropharynx shows that he is edentulous and there is no evidence of thrush. Neck: No adenopathy; carotids 2+ and without bruits. Chest: Symmetrical expansion; hyperresonance by percussion bilaterally; prolonged expiratory phase of ventilation with scattered and expiratory low pitched wheezes. Heart: PMI near the xiphoid process; regular rhythm; question S3 gallop. Abdomen: Bowel sounds diminished; scaphoid; soft, nontender, no masses or organ omegaly. Skin: No rash Extremities: No clubbing or edema. Musculoskeletal: No fernanda arthritis; he is missing the distal segment of the third digit of his right hand. Neurological: Grossly intact. Internal Medicine - CN: Reslt - Labs CBC & Chem 7: 11/15/18 17:00 11/15/18 17:00 Labs: Short CBC 11/15/18 Range/Units 17:00 WBC 10.8 (4.8-10.8) K/mm3 Hgb 15.3 (14.1-18.0) g/dL Hct 45.3 (42.0-52.0) % Plt Count 412 (142-424) K/mm3 BMP 11/15/18 17:00 Sodium 143 Potassium 3.4 L Chloride 104 Carbon Dioxide 30 BUN 13 Creatinine 0.67 L Glucose 94 Calcium 8.8 Cardiac Enzymes 11/16/18 Range/Units 08:52 Troponin I < 0.02 (0.00-0.06) ng/ml Liver Function 11/15/18 Range/Units 17:00 Total Bilirubin 0.5 (0.2-1.0) mg/dL AST 14 L (15-37) U/L ALT 17 (12-78) U/L Alkaline Phosphatase 68 (46-116) U/L Albumin 3.4 (3.4-5.0) gm/dL - ABG Interpretation Attestation ABG: I reviewed and interpreted this ABG. ABG results: 11/16/18 09:06 ABG pH 7.47 H ABG pCO2 39.1 ABG pO2 74.6 L ABG HCO3 28.0 H ABG Total CO2 29.2 H ABG O2 Saturation 96 ABG Base Excess 4.4 H - Impressions I personally reviewed the chest x-ray and CT scan of the chest performed yesterday. The CT shows extensive bullous emphysema, especially in the upper lung self but extending into the lower lobes. There are a few tree-in-bud op acities in the right middle lobe. Assessment and Plan (1) Panlobular emphysema Current visit: Yes Status: Acute Category: Medical Code(s): J43.1 - Panlobular emphysema (2) COPD with exacerbation Current visit: No Status: Acute Category: Medical Code(s): J44.1 - Chronic obstructive pulmonary disease with (acute) exacerbation (3) Tobacco use disorder Current visit: No Status: Acute Category: Medical Code(s): F17.200 - Nicotine dependence, unspecified, uncomplicated (4) Hypokalemia Current visit: Yes Status: Acute Category: Medical Code(s): E87.6 - Hypokalemia (5) Atypical angina Current visit: Yes Status: Acute Category: Medical Code(s): I20.8 - Other forms of angina pectoris - Assessment and plan all Dx Assessment and Plan for all problems:: Mr. Min has chronic obstructive pulmonary disease associated with extensive bullous emphysema on CT scan of the chest. He is suffering an acute exacerbation which may be viral in origin since his significant other became ill just before he did. I have requested a respiratory viral PCR. Because of the extensive emphysema, I have also asked for an alpha-1 antitrypsin level. I agree with your current regimen and expect that he will recover gradually over the next few days to a week. It is paramount that he never restart smoking and I discussed this with him. I will see him as an outpatient in the next couple of months, if you do not mind and reinforce this. I understand you we will schedule him for full pulmonary function testing and request that he have a 6-minute walk at that time. If he has not had the seasonal influenza vaccine and the pneumococcal vaccine, I recommend these as well. He has a history of a mycobacterial infection resected about 15 years ago and has tree-in-bud opacities in the right middle lobe which may be consistent either with aspiration or possible smoldering infection with a mycobacterial organism. I will be sure to follow-up on this when I see him. Thank you for the opportunity to participate in Mr. Min's care.
[2018-11-16 13:44] LABS: Coronavirus 229E Not Detected (NotDetected); Coronavirus NL63 Not Detected (NotDetected); Coronovirus HKU1,PCR Not Detected (NotDetected)
[2018-11-16 14:56] LABS: Coronavirus OC43 Detected (NotDetected)
--- NOTE | 2018-11-16 17:05 | Progress Note ---
Internal Medicine - PN: Subj *Date: 11/16/18 *Time: 08:20 Interval history: pt reports tightness in chest with walking, denies pain Exam Vital signs and Labs for Last 24 Hours: Temp Pulse Resp BP Pulse Ox 98.3 F 93 H 15 122/67 95 11/16/18 15:58 11/16/18 15:58 11/16/18 15:58 11/16/18 15:58 11/16/18 15:58 Laboratory Results - last 24 hr 11/15/18 17:00: WBC 10.8, RBC 4.89, Hgb 15.3, Hct 45.3, MCV 92.7, MCH 31.4 H, MCHC 33.9, RDW 12.8, Plt Count 412, MPV 6.7 L, Neut % (Auto) 66.7, Lymph % (Auto) 24.4, [place] % (Auto) 6.0, Eos % (Auto) 2.5, Baso % (Auto) 0.4, Neut # (Auto) 7.2, Lymph # (Auto) 2.7, [place] # (Auto) 0.7, Eos # (Auto) 0.3, Baso # (Auto) 0.0 11/15/18 17:00: Sodium 143, Potassium 3.4 L, Chloride 104, Carbon Dioxide 30, Anion Gap 12.4, BUN 13, Creatinine 0.67 L, Estimated Creat Clear 126, Estimated GFR 123, Est GFR ( Amer) 148, Glucose 94, Calcium 8.8, Total Bilirubin 0.5, AST 14 L, ALT 17, Alkaline Phosphatase 68, Total Protein 6.6, Albumin 3.4, Globulin 3.2, Albumin/Globulin Ratio 1.1 11/16/18 08:52: Troponin I < 0.02 11/16/18 09:06: Specimen Source Left radial, O2 % Ra, ABG pH 7.47 H, ABG pCO2 39.1, ABG pO2 74.6 L, ABG HCO3 28.0 H, ABG Total CO2 29.2 H, ABG O2 Saturation 96, ABG Base Excess 4.4 H, Kyree Test Acceptable 11/16/18 13:35: Chlamy pneumoniae PCR Not detected, Adenovirus (PCR) Not detected, B. pertussis DNA (PCR) Not detected, Coronavirus OC43 (PCR) Detected A , Coronavirus HKU1 (PCR) Not detected, Coronavirus 229E (PCR) Not detected, Coronavirus NL63 (PCR) Not detected, Human Metapneumovir PCR Not detected, Influenza A (H1) PCR Not detected, Influ A (H1N1/09) PCR Not detected, Influenza A (H3) PCR Not detected, Influenza Type A (PCR) Not detected, Influenza Type B (PCR) Not detected, M. pneumoniae (PCR) Not detected, Parainfluenza 1 (PCR) Not detected, Parainfluenza 2 (PCR) Not detected, Parainfluenza 3 (PCR) Not detected, Parainfluenza 4 (PCR) Not detected, RSV (PCR) Not detected, Entero/Rhino (PCR) Not detected I & O for Last 24 hours: Intake & Output 11/14/18 11/15/18 11/16/18 11/17/18 11:59 11:59 11:59 11:59 Intake Total 360 / 360 240 / 240 Balance 360 / 360 240 / 240 Weight 130 lb Microbiology Reports for the Last 24 Hours: Microbiology 11/16/18 05:50 Sputum - Expectorated Sputum Gram Stain - Final - Constitutional no acute distress - *Routine HEENT Exam Head: Present: normocephalic Eye: Present: EOMI, PERRL ENT: Present: mucous membranes moist - *Routine Neck Exam Present: supple. Absent: lymphadenopathy - *Routine Respiratory Exam Present: CTA bilaterally - *Routine Cardiovascular Exam Present: RRR - *Routine Abdominal Exam Present: soft, normoactive bowel sounds. Absent: tenderness - *Routine Extremities Exam Absent: cyanosis, clubbing, edema - *Routine Skin Exam Present: warm. Absent: rash - *Routine Neurological Exam Present: alert, oriented X3 - Routine Psychiatric Exam Present: normal affect Assessment and Plan (1) Panlobular emphysema Current visit: Yes Status: Acute Category: Medical Code(s): J43.1 - Panlobular emphysema (2) COPD with exacerbation Current visit: No Status: Acute Category: Medical Code(s): J44.1 - Chronic obstructive pulmonary disease with (acute) exacerbation (3) Tobacco use disorder Current visit: No Status: Acute Category: Medical Code(s): F17.200 - Nicotine dependence, unspecified, uncomplicated (4) Hypokalemia Current visit: Yes Status: Acute Category: Medical Code(s): E87.6 - Hypokalemia (5) Atypical angina Current visit: Yes Status: Acute Category: Medical Code(s): I20.8 - Other forms of angina pectoris - Assessment and plan all Dx Assessment and Plan for all problems:: rounded with Dr mckinley, all orders per elías cardiology consult for tightness in chest
--- NOTE | 2018-11-16 19:26 | Cardiology Report ---
PROCEDURE: 2-D M-mode and color Doppler study INDICATIONS FOR THE TEST: Chest pain X COPDX Heart Murmur Tobacco Smoking Palpitations Fatigue Syncope Edema Hypertension Diabetes Mellitus Rheumatic Fever SOB JIMENEZ Obesity Hyperlipidemia Family History HD Additional History THIS IS A LIMITED EXAM ALL IMAGES SUBCOSTAL SECONDARY TO COPD PATIENT INFORMATION HEIGHT: 69 WEIGHT:130 GENDER: Male B/P:121/78 2-D/M-MODE INTERPRETATION: 2-D MEASUREMENTS OBSERVED VALUES IN CMS Right Ventricular Dimension (RVDd) 1.4 Interventricular Septum (Thickness)(IVsd) 1.0 Left Ventricular Internal Dimensions(LVIDd) 3.9 Left Ventricular Posterior Wall (Thickness)(LVPWd) 1.0 Aortic Root Aortic Cusp Separation Left Atrial Dimensions (LAD) 2.5 2D 1. Technically difficult study because of the patient's factor and poor acoustic windows, limited views were obtained to evaluate left ventricular systolic function and valvular structures. 2. The left atrium is normal size, left ventricle is normal size, there is preserved left ventricular systolic function, visually estimated ejection fraction of 55% with no regional wall motion abnormality in the obtained views. 3. The right atrium and right ventricle are mildly enlarged with normal contractility. 4. The aortic, mitral and tricuspid valvular grossly normal. 5. The pulmonic valve is poorly visualized. 6. No significant pericardial effusion noted. DOPPLER INTERROGATION: Doppler interrogation of the aortic, mitral and tricuspid valvular presence of mild mitral and tricuspid regurgitation, tricuspid regurgitation jet velocity is inadequate for calculation of the right ventricular systolic pressure. Diastolic parameters are inconclusive. CONCLUSION: 1. Technically difficult study because of the patient's factors and poor acoustic windows, limited views were obtained to evaluate left ventricular systolic function and valvular structures. 2. Normal left ventricular size, preserved left ventricular systolic function, visually estimated ejection fraction 55% with no regional wall motion abnormality, diastolic parameters are inconclusive. 3. Mildly enlarged right atrium and right ventricle, contractility of the right ventricle is normal. 4. Mild mitral and tricuspid regurgitation 5. No significant pericardial effusion noted.
[2018-11-17 11:16] LABS: Basophils % 0.1 % (0.1-2.0); Eosinophils % 0.1 % (0.1-12.0); Hematocrit 45.3 % (42.0-52.0); Hemoglobin 14.8 g/dL (14.1-18.0); Mean Corpuscular HGB Conc 32.7 g/dL (31.8-35.4); Mean Corpuscular Hemoglobin 31.1 pg (27.0-31.2); Mean Corpuscular Volume 94.9 fl (80-94); Monocytes # 0.6 K/mm3 (0.1-1.0); Monocytes % 2.8 % (1.7-9.3); Neutrophils # 18.2 K/mm3 (1.8-7.8); Platelet Count 420 K/mm3 (142-424); Red Blood Count 4.77 M/mm3 (4.60-6.20); Red Cell Distribution Width 13.1 % (11.5-17.5); White Blood Count 19.8 K/mm3 (4.8-10.8)
[2018-11-17 11:24] LABS: Albumin Level 3.2 gm/dL (3.4-5.0); Albumin/Globulin Ratio 1.1 (1.1-1.8); Anion Gap 13.8 mEq/L (5-15); Bilirubin,Total 0.5 mg/dL (0.2-1.0); Calcium 9.2 mg/dL (8.5-10.1); Globulin 2.8 gm/dl (1.3-3.2); Potassium 4.8 mmoL/L (3.5-5.1)
--- NOTE | 2018-11-17 11:33 | Progress Note ---
Addendum entered and electronically signed by Perla Lemon APRN 11/17/18 11:55: This morning the patient was also complaining of GERD and reflux. He states that he has not had his reflux medication since being in the hospital and he has a lot of burning in the epigastric region of his chest. The patient was given omeprazole 40 mg x1 dose. Original Note: Subjective Date: 11/17/18 Time: 11:30 Principal diagnosis: Chest pain Interval history: This is a 58-year-old white gentleman who has been having progressively worsening shortness of breath. He also reports that he will have occasional tightness in his chest. He does describe having left shoulder and arm pain. He states that this has been present for several years. The patient just attributed that pain in his left shoulder to a procedure he had back in 1996. He states that sometimes the arm gives him a lot of issues and it comes and goes. He has had some exertional chest pain as well. He reports this chest tightness with associated shortness of breath. Is worse with exertion and does improve with rest. He states that this is moderate in intensity. Nothing worsens or improves the pain. The patient did undergo a Telepathyiscan Myoview stress test this morning. He denies any fever, chills, nausea, vomiting, diarrhea, PND or orthopnea. Exam Vital signs and Labs for Last 24 Hours: Temp Pulse Resp BP Pulse Ox 97.8 F 84 18 111/70 94 L 11/17/18 04:00 11/17/18 09:54 11/17/18 04:00 11/17/18 04:00 11/17/18 10:03 Laboratory Results - last 24 hr 11/16/18 13:35: Chlamy pneumoniae PCR Not detected, Adenovirus (PCR) Not detected, B. pertussis DNA (PCR) Not detected, Coronavirus OC43 (PCR) Detected A , Coronavirus HKU1 (PCR) Not detected, Coronavirus 229E (PCR) Not detected, Coronavirus NL63 (PCR) Not detected, Human Metapneumovir PCR Not detected, Influenza A (H1) PCR Not detected, Influ A (H1N1/09) PCR Not detected, Influenza A (H3) PCR Not detected, Influenza Type A (PCR) Not detected, Influenza Type B (PCR) Not detected, M. pneumoniae (PCR) Not detected, Parainfluenza 1 (PCR) Not detected, Parainfluenza 2 (PCR) Not detected, Parainfluenza 3 (PCR) Not detected, Parainfluenza 4 (PCR) Not detected, RSV (PCR) Not detected, Entero/Rhino (PCR) Not detected 11/17/18 10:15: WBC 19.8 H D, RBC 4.77, Hgb 14.8, Hct 45.3, MCV 94.9 H, MCH 31.1, MCHC 32.7, RDW 13.1, Plt Count 420, MPV 7.0 L, Neut % (Auto) 92.0 H, Lymph % (Auto) 5.0 L, [place] % (Auto) 2.8, Eos % (Auto) 0.1, Baso % (Auto) 0.1, Neut # (Auto) 18.2 H, Lymph # (Auto) 1.0, [place] # (Auto) 0.6, Eos # (Auto) 0.0, Baso # (Auto) 0.0 11/17/18 10:15: Sodium 139, Potassium 4.8 D, Chloride 104, Carbon Dioxide 26, Anion Gap 13.8, BUN 16, Creatinine 0.67 L, Estimated Creat Clear 103, Estimated GFR 123, Est GFR ( Amer) 148, Glucose 118 H, Calcium 9.2, Total Bilirubin 0.5, AST 12 L, ALT 18, Alkaline Phosphatase 61, Total Protein 6.0 L, Albumin 3.2 L, Globulin 2.8, Albumin/Globulin Ratio 1.1 I & O for Last 24 hours: Intake & Output 11/14/18 11/15/18 11/16/18 11/17/18 23:59 23:59 23:59 23:59 Intake Total 1080 / 1080 Output Total 0 / 0 Balance 1080 / 1080 0 / 0 Weight 130 lb 130 lb Microbiology Reports for the Last 24 Hours: Microbiology 11/16/18 05:50 Sputum - Expectorated Sputum Gram Stain - Final 11/16/18 05:50 Sputum - Expectorated Sputum Sputum Culture - Preliminary Narrative: His Ami scan shows a large inferior wall defect and reversible ischemia in the septum. His ejection fraction is 65%. This is a high risk abnormal stress test. - Constitutional no acute distress, average body habitus - *Routine HEENT Exam Head: Present: normocephalic, atraumatic Eye: Present: EOMI, PERRL ENT: Present: mucous membranes moist - *Routine Neck Exam Present: supple, full ROM, normal carotid upstroke. Absent: JVD, carotid bruit, lymphadenopathy - *Routine Respiratory Exam Present: CTA bilaterally - *Routine Cardiovascular Exam Present: RRR, Normal S1, Normal S2. Absent: murmur, gallop - *Routine Abdominal Exam Present: soft, normoactive bowel sounds. Absent: tenderness - *Routine Extremities Exam Present: full ROM, pulses intact, normal capillary refill. Absent: cyanosis, clubbing, edema - *Routine Skin Exam Present: intact, warm. Absent: erythema, rash - *Routine Neurological Exam Present: alert, oriented X3, CN II-XII intact. Absent: sensory deficit, motor deficit - Detailed Eye Exam Eyelids: Left normal inspection Progress Note: A&P (1) Atypical angina Status: Acute Current Visit: Yes (2) Abnormal cardiovascular stress test Status: Acute Current Visit: Yes (3) Panlobular emphysema Status: Acute Current Visit: Yes (4) COPD with exacerbation Status: Acute Current Visit: No (5) Tobacco use disorder Status: Acute Current Visit: No (6) Hypokalemia Status: Acute Current Visit: Yes Assessment and Plan for All Diagnoses:: Plan: 1. The patient was admitted to the hospital with shortness of breath and a COPD exacerbation. This is being managed per his primary care provider. 2. The patient was having some atypical angina and tightness in his chest. He does state that this comes and goes. He does also talk about left shoulder and arm pain that he has had for several years and he attributed to a surgery that he had many years ago. The patient did undergo Lexiscan Myoview stress testing this morning. The stress test is high risk abnormal with a large inferior defect and reversible ischemia in the septum. 3. The patient is having angina class III-IV and has a high risk abnormal Myoview stress test. We will plan to proceed with left cardiac catheterization with right radial access. 4. The patient has been educated on the risks and benefits of proceeding with left cardiac catheterization. The patient verbalizes understanding and is agreeable in proceeding with the procedure. 5. The patient will remain n.p.o. in preparation for left cardiac catheterization. 6. The patient will be given premedications and IV fluids prior to the procedure. 7. His blood pressure is acceptable. 8. His LDL goal is less than 100. 9. Further recommendations will be made pending the patient's response to treat ment following his left cardiac catheterization later today. Thank you for the opportunity to help participate in the care of this patient.
[2018-11-17 11:46] LABS: Lymphocytes % 5 % (10-50); Monocytes % 2 % (2-9); Neutrophils % 91 % (42-76); RBC Morphology Normal; Total Cells Counted 100
--- NOTE | 2018-11-17 20:46 | Progress Note ---
Internal Medicine - PN: Subj *Date: 11/17/18 *Time: 08:00 Interval history: doing better and with gxt today Exam Vital signs and Labs for Last 24 Hours: Temp Pulse Resp BP Pulse Ox 97.9 F 85 20 114/76 93 L 11/17/18 16:15 11/17/18 20:18 11/17/18 18:45 11/17/18 18:45 11/17/18 20:18 Laboratory Results - last 24 hr 11/17/18 10:15: WBC 19.8 H D, RBC 4.77, Hgb 14.8, Hct 45.3, MCV 94.9 H, MCH 31.1, MCHC 32.7, RDW 13.1, Plt Count 420, MPV 7.0 L, Neut % (Auto) 92.0 H, Lymph % (Auto) 5.0 L, [place] % (Auto) 2.8, Eos % (Auto) 0.1, Baso % (Auto) 0.1, Neut # (Auto) 18.2 H, Lymph # (Auto) 1.0, [place] # (Auto) 0.6, Eos # (Auto) 0.0, Baso # (Auto) 0.0, Total Counted 100, Neutrophils % (Manual) 91 H, Band Neutrophils % 2.0, Lymphocytes % (Manual) 5 L, Monocytes % (Manual) 2, Platelet Estimate Normal, RBC Morphology Normal 11/17/18 10:15: Sodium 139, Potassium 4.8 D, Chloride 104, Carbon Dioxide 26, Anion Gap 13.8, BUN 16, Creatinine 0.67 L, Estimated Creat Clear 103, Estimated GFR 123, Est GFR ( Amer) 148, Glucose 118 H, Calcium 9.2, Total Bilirubin 0.5, AST 12 L, ALT 18, Alkaline Phosphatase 61, Total Protein 6.0 L, Albumin 3.2 L, Globulin 2.8, Albumin/Globulin Ratio 1.1 11/17/18 14:28: Activated Clotting Time 279 H* I & O for Last 24 hours: Intake & Output 11/15/18 11/16/18 11/17/18 11/18/18 11:59 11:59 11:59 11:59 Intake Total 360 / 360 720 / 720 480 / 480 Output Total 0 / 0 400 / 400 Balance 360 / 360 720 / 720 80 / 80 Weight 130 lb 130 lb Microbiology Reports for the Last 24 Hours: Microbiology 11/16/18 05:50 Sputum - Expectorated Sputum Gram Stain - Final 11/16/18 05:50 Sputum - Expectorated Sputum Sputum Culture - Preliminary - Constitutional no acute distress - *Routine HEENT Exam Head: Present: normocephalic Eye: Present: EOMI, PERRL. Absent: conjunctival icterus ENT: Present: mucous membranes dry - *Routine Neck Exam Absent: JVD - *Routine Respiratory Exam Present: rhonchi - *Routine Cardiovascular Exam Present: RRR, murmur - *Routine Abdominal Exam Present: soft - *Routine Extremities Exam Present: full ROM - Routine Back/Spine/Pelvis Exam Back/Spine: Absent: CVA tenderness - *Routine Skin Exam Present: intact - *Routine Neurological Exam Present: alert, CN II-XII intact - Routine Psychiatric Exam Present: normal affect Assessment and Plan (1) Atypical angina Current visit: Yes Status: Acute Category: Medical Code(s): I20.8 - Other forms of angina pectoris (2) Abnormal cardiovascular stress test Current visit: Yes Status: Acute Category: Medical Code(s): R94.39 - Abnormal result of other cardiovascular function study (3) Panlobular emphysema Current visit: Yes Status: Acute Category: Medical Code(s): J43.1 - Panlobular emphysema (4) COPD with exacerbation Current visit: No Status: Acute Category: Medical Code(s): J44.1 - Chronic obstructive pulmonary disease with (acute) exacerbation (5) Tobacco use disorder Current visit: No Status: Acute Category: Medical Code(s): F17.200 - Nicotine dependence, unspecified, uncomplicated (6) Hypokalemia Current visit: Yes Status: Acute Category: Medical Code(s): E87.6 - Hypokalemia
[2018-11-18 06:16] LABS: Hematocrit 41.7 % (42.0-52.0); Hemoglobin 13.4 g/dL (14.1-18.0); Lymphocytes # 0.7 K/mm3 (0.7-4.5); Lymphocytes % 3.7 % (10-50); Mean Corpuscular HGB Conc 32.1 g/dL (31.8-35.4); Mean Corpuscular Hemoglobin 30.8 pg (27.0-31.2); Mean Platelet Volume 6.8 fl (7.4-10.4); Monocytes # 0.5 K/mm3 (0.1-1.0); Monocytes % 2.8 % (1.7-9.3); Neutrophils # 17.2 K/mm3 (1.8-7.8); Neutrophils % 93.4 % (37.0-80.0); Platelet Count 372 K/mm3 (142-424); Red Blood Count 4.35 M/mm3 (4.60-6.20); Red Cell Distribution Width 13.2 % (11.5-17.5); White Blood Count 18.4 K/mm3 (4.8-10.8)
[2018-11-18 06:41] LABS: Albumin Level 2.7 gm/dL (3.4-5.0); Bilirubin,Direct 0.1 mg/dL (0.0-0.2); Bilirubin,Indirect 0.3 mg/dL (0.0-0.9); Bilirubin,Total 0.4 mg/dL (0.2-1.0); Chol/HDL Ratio 2.3 (1-3.5); Total Protein,Serum 5.6 gm/dL (6.4-8.2)
--- NOTE | 2018-11-18 08:55 | Progress Note ---
Subjective Date: 11/18/18 Time: 08:51 Principal diagnosis: Chest pain Interval history: 58-year-old white male in bed in no acute distress. Denies any chest pain, pressure or tightness. States he is feeling better since the coronary stenting and breathing treatments. Exam Vital signs and Labs for Last 24 Hours: Temp Pulse Resp BP Pulse Ox 98.2 F 79 20 111/72 93 L 11/18/18 04:00 11/18/18 06:00 11/18/18 06:00 11/18/18 06:00 11/18/18 06:00 Laboratory Results - last 24 hr 11/17/18 10:15: WBC 19.8 H D, RBC 4.77, Hgb 14.8, Hct 45.3, MCV 94.9 H, MCH 3 1.1, MCHC 32.7, RDW 13.1, Plt Count 420, MPV 7.0 L, Neut % (Auto) 92.0 H, Lymph % (Auto) 5.0 L, [place] % (Auto) 2.8, Eos % (Auto) 0.1, Baso % (Auto) 0.1, Neut # (Auto) 18.2 H, Lymph # (Auto) 1.0, [place] # (Auto) 0.6, Eos # (Auto) 0.0, Baso # (Auto) 0.0, Total Counted 100, Neutrophils % (Manual) 91 H, Band Neutrophils % 2.0, Lymphocytes % (Manual) 5 L, Monocytes % (Manual) 2, Platelet Estimate Normal, RBC Morphology Normal 11/17/18 10:15: Sodium 139, Potassium 4.8 D, Chloride 104, Carbon Dioxide 26, Anion Gap 13.8, BUN 16, Creatinine 0.67 L, Estimated Creat Clear 103, Estimated GFR 123, Est GFR ( Amer) 148, Glucose 118 H, Calcium 9.2, Total Bilirubin 0.5, AST 12 L, ALT 18, Alkaline Phosphatase 61, Total Protein 6.0 L, Albumin 3.2 L, Globulin 2.8, Albumin/Globulin Ratio 1.1 11/17/18 14:28: Activated Clotting Time 279 H* 11/18/18 05:33: Sodium 142, Potassium 5.0, Chloride 106, Carbon Dioxide 25, Anion Gap 16.0 H, BUN 20 H, Creatinine 0.70, Estimated Creat Clear 103, Estimated GFR 117, Est GFR ( Amer) 141, Glucose 123 H, Calcium 9.0 11/18/18 05:33: WBC 18.4 H, RBC 4.35 L, Hgb 13.4 L, Hct 41.7 L, MCV 96.0 H, MCH 30.8, MCHC 32.1, RDW 13.2, Plt Count 372, MPV 6.8 L, Neut % (Auto) 93.4 H, Lymph % (Auto) 3.7 L, [place] % (Auto) 2.8, Eos % (Auto) 0.0 L, Baso % (Auto) 0.0 L, Neut # (Auto) 17.2 H, Lymph # (Auto) 0.7, [place] # (Auto) 0.5, Eos # (Auto) 0.0, Baso # (Auto) 0.0 11/18/18 05:33: Total Bilirubin 0.4, Direct Bilirubin 0.1, Indirect Bilirubin 0.3, AST 9 L, ALT 18, Alkaline Phosphatase 55, Total Protein 5.6 L, Albumin 2.7 L D, Triglycerides 80, Cholesterol 126 L, LDL Cholesterol 55, VLDL Cholesterol 16, HDL Cholesterol 55, Cholesterol/HDL Ratio 2.3 I & O for Last 24 hours: Intake & Output 11/15/18 11/16/18 11/17/18 11/18/18 11:59 11:59 11:59 11:59 Intake Total 360 / 360 720 / 720 1560 / 1560 Output Total 0 / 0 400 / 400 Balance 360 / 360 720 / 720 1160 / 1160 Weight 130 lb 136 lb 4 oz Microbiology Reports for the Last 24 Hours: Microbiology 11/16/18 05:50 Sputum - Expectorated Sputum Gram Stain - Final 11/16/18 05:50 Sputum - Expectorated Sputum Sputum Culture - Final Normal Respiratory Ayanna - *Routine Respiratory Exam Present: CTA bilaterally. Absent: accessory muscle use, rales, rhonchi, wheezes - *Routine Cardiovascular Exam Present: RRR. Absent: murmur, gallop, rubs - *Routine Neurological Exam Present: alert, oriented X3, moving all extremities Progress Note: A&P (1) Atypical angina Status: Acute Current Visit: Yes (2) Panlobular emphysema Status: Acute Current Visit: Yes (3) COPD with exacerbation Status: Acute Current Visit: No (4) Tobacco use disorder Status: Acute Current Visit: No (5) Hypokalemia Status: Acute Current Visit: Yes (6) CAD (coronary artery disease), [place] coronary artery Status: Acute Current Visit: Yes (7) S/P coronary artery stent placement Status: Acute Current Visit: Yes Assessment and Plan for All Diagnoses:: 1. Stable from cardiac standpoint for discharge home. Off work til follow up next week due to the physical nature of his work and right wrist limitations post cath. 2. Medication recommendations: Aspirin 81 mg daily Brilinta 90 mg twice daily Bisoprolol 2.5 mg daily Atorvastatin 40 mg daily
--- NOTE | 2018-11-18 09:57 | Discharge Summary ---
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 Started with chills and aches and a cough. Seen at his primary care doctor after about 3 days of illness on 11/08/18. He was started on Augmentin, steroids, nebulizer treatments, and nasal spray. He does not feel like he has gotten any better. He was sent home from work today. He says he has had sleep sitting up in a recliner all week long. He had an outpatient chest x-ray and was told he needed a follow-up CAT scan of his chest. He was also seen at his primary care provider on 10/26/18 for respiratory illness and treated with a Z-Martin. He says that he started to get better from that, felt better but not back to 100% before he got ill again. He is a smoker. pt also reported chest tightness and inc sob with any exertion -this has increased over the last few weeks - he had court of 2 by my review Hospital Course Hospital Course: stress test:IMPRESSION: Large inferior wall defect in which clinical correlation is advised. Reversible ischemia throughout the septum. This would be considered a high risk abnormal stress test based on the defect and reversibility. Normal ejection fraction normal wall motion echo:CONCLUSION: 1. Technically difficult study because of the patient's factors and poor acoustic windows, limited views were obtained to evaluate left ventricular systolic function and valvular structures. 2. Normal left ventricular size, preserved left ventricular systolic function, visually estimated ejection fraction 55% with no regional wall motion abnormality, diastolic parameters are inconclusive. 3. Mildly enlarged right atrium and right ventricle, contractility of the right ventricle is normal. 4. Mild mitral and tricuspid regurgitation 5. No significant pericardial effusion note ct chest:FINDINGS: There are severe panlobular bullous emphysematous changes with bullous changes in the upper lobes. No mediastinal or hilar mass or adenopathy. The heart is somewhat smaller than expected. There is minimal thickening of the pericardium anteriorly. There is diffuse hyperinflation. Scattered areas of scarring are noted bilaterally. Calcified granuloma is present in the right lower lobe. In the right middle lobe there are small lateral opacities having somewhat of a tree-in-bud pattern and may represent an area of infiltrate versus scarring. Developing nodules are also considered. 3 month follow-up suggested. There are degenerative changes of the thoracic spine. A subtle 6 mm lucency is present in the right pedicle of L1 nonspecific. IMPRESSION: 1. Severe panlobular emphysema with upper lobe bulla with scattered asymmetric scarring. 2. Nodularity right middle lobe laterally with a somewhat tree-in-bud pattern and could represent an area of inflammation/infection versus scarring or developing nodules. 3. Small lucent area in the pedicle on the right at L1. Recommend 3 month follow-up to confirm stability of the above findings cath reports:IMPRESSION: 1. Hazy moderate stenosis and a very large proximal dominant right coronary artery which perfectly correlates to the abnormal Myoview. 2. Successful stenting of the hemodynamically severe stenosis being reduced to 0% with one large drug-eluting stent 3. Normal ejection fraction 4. Normal left ventricular end-diastolic pressure PLAN: 1. Brilinta and aspirin 2. LDL less than 55 3. Risk factor modification 4. Cardiac rehabilitation 5. Avoidance of tobacco products Discharged home per cardiac recommendation on aspirin Brilinta bisoprolol and atorvastatin Objective Vital signs: Temp Pulse Resp BP Pulse Ox 97.6 F 86 20 121/74 92 L 11/18/18 08:00 11/18/18 08:00 11/18/18 08:00 11/18/18 08:00 11/18/18 08:00 no acute distress, thin - *Routine HEENT Exam Head: Present: normocephalic Eye: Present: PERRL ENT: Present: mucous membranes moist - *Routine Neck Exam Present: full ROM - *Routine Respiratory Exam Present: CTA bilaterally - *Routine Cardiovascular Exam Present: RRR - *Routine Abdominal Exam Present: soft, normoactive bowel sounds - *Routine Extremities Exam Comments: Dressing to right wrist clean dry and intact - *Routine Neurological Exam Present: alert, oriented X3 - Routine Psychiatric Exam Present: normal affect Results Labs on day of discharge: Labs from last 24 hours 11/18/18 11/18/18 11/18/18 05:33 05:33 05:33 WBC 18.4 H RBC 4.35 L Hgb 13.4 L Hct 41.7 L MCV 96.0 H MCH 30.8 MCHC 32.1 RDW 13.2 Plt Count 372 MPV 6.8 L Neut % (Auto) 93.4 H Lymph % (Auto) 3.7 L [place] % (Auto) 2.8 Eos % (Auto) 0.0 L Baso % (Auto) 0.0 L Neut # (Auto) 17.2 H Lymph # (Auto) 0.7 [place] # (Auto) 0.5 Eos # (Auto) 0.0 Baso # (Auto) 0.0 Total Counted Neutrophils % (Manual) Band Neutrophils % Lymphocytes % (Manual) Monocytes % (Manual) Platelet Estimate RBC Morphology Activated Clotting Time Sodium 142 Potassium 5.0 Chloride 106 Carbon Dioxide 25 Anion Gap 16.0 H BUN 20 H Creatinine 0.70 Estimated Creat Clear 103 Estimated GFR 117 Est GFR ( Amer) 141 Glucose 123 H Calcium 9.0 Total Bilirubin 0.4 Direct Bilirubin 0.1 Indirect Bilirubin 0.3 AST 9 L ALT 18 Alkaline Phosphatase 55 Total Protein 5.6 L Albumin 2.7 L D Globulin Albumin/Globulin Ratio Triglycerides 80 Cholesterol 126 L LDL Cholesterol 55 VLDL Cholesterol 16 HDL Cholesterol 55 Cholesterol/HDL Ratio 2.3 11/17/18 11/17/18 11/17/18 14:28 10:15 10:15 WBC 19.8 H D RBC 4.77 Hgb 14.8 Hct 45.3 MCV 94.9 H MCH 31.1 MCHC 32.7 RDW 13.1 Plt Count 420 MPV 7.0 L Neut % (Auto) 92.0 H Lymph % (Auto) 5.0 L [place] % (Auto) 2.8 Eos % (Auto) 0.1 Baso % (Auto) 0.1 Neut # (Auto) 18.2 H Lymph # (Auto) 1.0 [place] # (Auto) 0.6 Eos # (Auto) 0.0 Baso # (Auto) 0.0 Total Counted 100 Neutrophils % (Manual) 91 H Band Neutrophils % 2.0 Lymphocytes % (Manual) 5 L Monocytes % (Manual) 2 Platelet Estimate Normal RBC Morphology Normal Activated Clotting Time 279 H* Sodium 139 Potassium 4.8 D Chloride 104 Carbon Dioxide 26 Anion Gap 13.8 BUN 16 Creatinine 0.67 L Estimated Creat Clear 103 Estimated GFR 123 Est GFR ( Amer) 148 Glucose 118 H Calcium 9.2 Total Bilirubin 0.5 Direct Bilirubin Indirect Bilirubin AST 12 L ALT 18 Alkaline Phosphatase 61 Total Protein 6.0 L Albumin 3.2 L Globulin 2.8 Albumin/Globulin Ratio 1.1 Triglycerides Cholesterol LDL Cholesterol VLDL Cholesterol HDL Cholesterol Cholesterol/HDL Ratio - Additional Comments Rounded with Dr. Gold all orders per Asif DS: Diagnosis - Discharge Diagnosis (1) Atypical angina Status: Acute (2) Panlobular emphysema Status: Acute (3) COPD with exacerbation Status: Acute (4) Tobacco use disorder Status: Acute (5) Hypokalemia Status: Acute (6) CAD (coronary artery disease), [place] coronary artery Status: Acute (7) S/P coronary artery stent placement Status: Acute Discharge Plan - Patient Discharge Instructions ACTIVITY: Continue current activity DIET: continue same diet Patient Instructions: Sinusitis, Chronic Obstructive Pulmonary Disease, Acute Bronchitis, DI for Cardiac Catheterization, DI for Cardiac Stress Test, DI for Coronary Stenting, DI for Hypokalemia, DI for Surgical Site Infection, DI for Chest Pain, Surgical Site Infection - Follow up Plan Follow up with: Renaldo Gold MD [Staff Physician] - 1 week Donn Samuels MD [Staff Physician] - 2 weeks Disposition: Home, Self-[facility] Medications: Home Medications Medication Instructions Recorded Confirmed Type fluticasone furoate 100 1 inh INHALATION DAILY #60 each 10/27/18 11/15/18 Rx mcg-vilanterol 25 mcg/dose inhalation powder Albuterol Sulfate [Albuterol 2.5 mg INHALATION TID 11/15/18 11/15/18 History 0.083% 2.5mg/3mL neb] Albuterol Sulfate [Ventolin HFA] 1 puff INHALATION Q6H 11/15/18 11/15/18 History Cetirizine HCl 10 mg PO DAILY 11/15/18 11/15/18 History Fluticasone Propionate 1 spray INTRANASAL DAILY 11/15/18 11/16/18 History Aspirin [Aspirin 81mg EC Tab] 81 mg PO DAILY 30 Days #30 11/18/18 Rx tablet. Atorvastatin Calcium [Lipitor 40mg 40 mg PO HS 30 Days #30 tablet 11/18/18 Rx Tablet] Bisoprolol Fumarate [Zebeta 5mg 2.5 mg PO DAILY 60 Days #30 tablet 11/18/18 Rx tablet] Nicotine [Nicoderm 21mg/24hr 21 mg TD DAILY 30 Days #30 11/18/18 Rx patch] patch.td24 Ticagrelor [Brilinta 90mg Tablet] 90 mg PO BID 30 Days #60 tablet 11/18/18 Rx Prescriptions/Medication Reconciliation: New Aspirin [Aspirin 81mg EC Tab] 81 mg PO DAILY 30 Days #30 tablet. Atorvastatin Calcium [Lipitor 40mg Tablet] 40 mg PO HS 30 Days #30 tablet Nicotine [Nicoderm 21mg/24hr patch] 21 mg TD DAILY 30 Days #30 patch.td24 Ticagrelor [Brilinta 90mg Tablet] 90 mg PO BID 30 Days #60 tablet Acetaminophen [Acetaminophen 325mg tab] 650 mg PO Q4HP PRN tablet PRN Reason: As Needed For Fever Or Pain Bisoprolol Fumarate [Zebeta 5mg tablet] 2.5 mg PO DAILY 60 Days #30 tablet No Action fluticasone furoate 100 mcg-vilanterol 25 mcg/dose inhalation powder 1 inh INHALATION DAILY #60 each Fluticasone Propionate 1 spray INTRANASAL DAILY Cetirizine HCl 10 mg PO DAILY Albuterol Sulfate [Ventolin HFA] 1 puff INHALATION Q6H Albuterol Sulfate [Albuterol 0.083% 2.5mg/3mL neb] 2.5 mg INHALATION TID
[2018-11-18 10:39] LABS: Lymphocytes % 5 % (10-50); Monocytes % 1 % (2-9); Neutrophils % 93 % (42-76); Total Cells Counted 100
[2018-11-18 10:40] LABS: RBC Morphology Normal
== END 2018-11-18 11:01 | disposition home or self-care (01) ==
LOC: ER 15:21 → 2ND 15:21
PROVIDERS: ADMIT Family Medicine; ATTEND Emergency Medicine
DX: Z79.82 Long term (current) use of aspirin; R07.9 Chest pain, unspecified; Z88.8 Allergy status to other drugs, medicaments and biological substances; R05 Cough; J44.1 Chronic obstructive pulmonary disease with (acute) exacerbation; I25.118 Atherosclerotic heart disease of native coronary artery with other forms of angina pectoris; Z79.899 Other long term (current) drug therapy; E87.6 Hypokalemia; Z79.51 Long term (current) use of inhaled steroids; R94.39 Abnormal result of other cardiovascular function study; R06.02 Shortness of breath; Z72.0 Tobacco use; Z90.2 Acquired absence of lung [part of]
CPT/HCPCS: 36415; 71020; 71046; 71250; 78452; 80048; 80053; 80061; 80076; 82103; 82104; 82803; 84484; 85007; 85025; 85347; 87070; 87205; 87486; 87581; 87633; 87798; 92928; 93005; 93017; 93306; 93458; 94640; 94761; 96374; 99152; 99153; 99284; A9502; C1725; C1760; C1769; C1876; C9600; G0378; J1644; J2785

== ENCOUNTER → 2018-11-29 10:04 | Outpatient (POV) | payer OTHER, SELFPAY | PROVIDERS: Visit Provider Internal Medicine | DX: Z00.00 Encounter for general adult medical examination without abnormal findings (principal) ==

== ENCOUNTER → 2019-03-07 07:32 | Outpatient (CLI) | payer OTHER, SELFPAY ==
--- NOTE | 2019-03-07 07:45 | CT_ITS ---
CT chest wo con HISTORY: Multiple Pulmonary Nodules. Follow-up pulmonary nodules ITS.REASON: MULTIPLE PULMONARY NODULES ORDERING PHYSICIAN: Peewee Martinez MD PATIENT AGE: 58 years COMPARISON: 11/15/18 Technique: Axial images were obtained. Sagittal, and coronal reformatted images are also generated and reviewed. All CT scans at the facility use one or more dose reduction, viz: automated exposure control, ma/kV adjustment per patient size (including targeted exams where dose is matched to indication, i.e. head), or iterative reconstruction technique. FINDINGS: No mediastinal or hilar mass or adenopathy. Severe centrilobular and and lobular emphysema with bullous change in the apices. Scattered areas of scarring are once again noted. The previously noted nodular area in the right middle lobe has resolved. There is a stable 4 mm noncalcified nodule in the superior segment of left lower lobe. No new nodules are evident. No central obstructing lesions. There are degenerative changes in the thoracic spine. IMPRESSION: 1. Interval improvement in the previously described nodularity in the right middle lobe. 2. Centrilobular and panlobular emphysema.
[2019-03-07 08:50] VITALS: PULSE 64; PULSE 66
== END ==
PROVIDERS: PCP Emergency Medicine; Visit Provider Internal Medicine
DX: R91.8 Other nonspecific abnormal finding of lung field (principal); J44.1 Chronic obstructive pulmonary disease with (acute) exacerbation; R06.02 Shortness of breath
CPT/HCPCS: 71250; 94060; 94618; 94640; 94726; 94729

== ENCOUNTER → 2019-10-06 11:42 | Outpatient (CLI) | payer BC, SELFPAY ==
[2019-10-06 13:06] LABS: Alanine Aminotransferase 15 U/L (21-72); Albumin/Globulin Ratio 1.6 (1.1-1.8); Alkaline Phosphatase 58 U/L (46-116); Anion Gap 12.1 mEq/L (5-15); Aspartate Amino Transferase 16 U/L (15-37); Bilirubin,Total 1.2 mg/dL (0.2-1.0); Blood Urea Nitrogen 8 mg/dL (7-18); Carbon Dioxide 30 mmol/L (21.0-32.0); Chloride 106 mmol/L (98-107); Creatinine,Serum 0.86 mg/dL (0.70-1.30); Estimated Glomerular Filt Rate 92 ml/min (>60); GFR (African American) 111 ML/MIN (>60); Globulin 2.5 gm/dl (1.3-3.2); Glucose 89 mg/dL (74-106); Potassium 4.1 mmoL/L (3.5-5.1); Prostate Specific Ag Screen 5.6 ng/mL (0.0-4.0); Sodium 144 mmol/L (137-145); Total Protein,Serum 6.5 g/dL (6.4-8.2)
== END ==
PROVIDERS: Visit Provider Urology
DX: R31.0 Gross hematuria (principal); Z12.5 Encounter for screening for malignant neoplasm of prostate
CPT/HCPCS: 36415; 80053; G0103

== ENCOUNTER 2022-07-09 11:15 | Inpatient (IN) | payer BC, SELFPAY ==
[2022-07-09] VITALS (10 sets, daily range): BP systolic 110–149; BP diastolic 69–90; PULSE 69–118; RESP 14–24; TEMP 36.6–36.9; O2SAT 89–96; BMI 19.2; BMI 20.1
--- NOTE | 2022-07-09 11:09 | ECG_ITS ---
APPROVED REPORT Exam: Resting ECG HR:109 bpm ECG Measurements Heart Rate 109 AXES DE 126 P 85 QRSd 80 QRS 83 QT 310 T 87 QTc 374 Conclusion SINUS TACHYCARDIA LOW QRS VOLTAGE IN PRECORDIAL LEADS [QRS DEFLECTION < 1.0 mV IN CHEST LEADS] ABNORMAL RHYTHM ECG UNCONFIRMED REPORT Electronically signed by : Hugo Villatoro MD 07/10/2022 21:17:48
--- NOTE | 2022-07-09 11:17 | XR_ITS ---
FINAL REPORT CLINICAL HISTORY: SOA FINDINGS: SINGLE-VIEW CHEST The heart size is normal. The mediastinum is normal. There are mild chronic changes at the bases. There is no pneumothorax. IMPRESSION: No acute cardiopulmonary process. Reviewed, Interpreted and Dictated by Checo Ballesteros MD Transcribed by Charmaine Guillory Authenticated and [facility]
[2022-07-09 11:35] LABS: Coronavirus 19, PCR Not Detected (NotDetected); Influenza B, PCR Not Detected (NotDetected)
[2022-07-09 11:40] LABS: Chloride 96 mmol/L (98-107); Potassium 3.8 mmoL/L (3.5-5.1); Sodium 137 mmol/L (136-145)
[2022-07-09 11:43] LABS: Anion Gap 13.8 mEq/L (5-15); Blood Urea Nitrogen 9 mg/dl (9-20); Calcium 8.6 mg/dl (8.4-10.2); Carbon Dioxide 31 mmol/L (22.0-30.0); Creatinine Clearance Estimated 82 mL/min (50-200); Estimated Glomerular Filt Rate 99 ml/min (>60); GFR (African American) 119 ML/MIN (>60); Glucose 117 mg/dl (74-100)
[2022-07-09 11:57] LABS: Influenza A, PCR Detected (NotDetected)
[2022-07-09 12:00] LABS: Basophils # 0.1 K/mm3 (0-0.2); Basophils % 0.9 % (0.1-2.0); Eosinophils % 0.1 % (0.1-12.0); Hematocrit 46.3 % (42.0-52.0); Hemoglobin 15.3 g/dL (14.1-18.0); Lymphocytes # 0.5 K/mm3 (0.7-4.5); Lymphocytes % 8.1 % (10-50); Mean Corpuscular Hemoglobin 31.2 pg (27.0-31.2); Mean Corpuscular Volume 94.6 fl (80-94); Mean Platelet Volume 8.3 fl (7.4-10.4); Monocytes # 0.4 K/mm3 (0.1-1.0); Neutrophils # 5.1 K/mm3 (1.8-7.8); Neutrophils % 83.8 % (37.0-80.0); Platelet Count 249 K/mm3 (142-424); Red Blood Count 4.89 M/mm3 (4.60-6.20); Red Cell Distribution Width 13.3 % (11.5-17.5); White Blood Count 6.1 K/mm3 (4.8-10.8)
[2022-07-09 12:04] LABS: Troponin I < 0.01 ng/ml (0.00-0.034)
--- NOTE | 2022-07-09 13:08 | [facility].EDGENADL ---
Discharge Plan Disposition Patient Disposition: Admitted as Observation Condition: Fair Clinical Impressions Clinical Impression: Acute and chronic respiratory failure with hypoxia, Acute exacerbation of chronic obstructive pulmonary disease, Influenza A Discharge ED Provider: Fam Staley General Adult HPI General Chief complaint: Shortness of Breath/Dyspnea Stated complaint: shortness of air Time Seen by Provider: 07/09/22 12:40 Mode of Arrival: Wheelchair Source of Information: Patient Limitations: No Limitations Description of Symptoms (Recalled from ER Triage Doc. by RN): c/o soa, feeling tired, cough. States he get up and walk across his living room her has difficulity breathing and cant catch his breath. Sent from off due to low oxygen. History of Present Illness HPI narrative: Patient is sent from his primary care provider's office. He has been sick since Thursday. He has cough, body aches, weakness, shortness of breath. He has posttussive emesis. His was just recently diagnosed with influenza within the past couple of days. He had an influenza vaccine a couple of weeks ago. He was seen by his primary care provider yesterday and diagnosed with sinusitis. He was given injection of Rocephin and Decadron and discharged on Augmentin, steroids, Tessalon Perles. He went back today and had a pulse ox on room air of 82% and therefore was sent to the emergency department. He has a diagnosis of COPD. He is not on oxygen at home. He has a nebulizer but does not have any medication for it and does not routinely use it. He smokes. Related Data Home Medications Medication Instructions Recorded Confirmed albuterol sulfate 90 mcg/actuation 1 puff inhalation Q6H soa 07/09/22 07/09/22 aerosol inhaler aspirin 81 mg tablet,delayed 81 mg PO DAILY heart health 07/09/22 07/09/22 release fluticasone furoate 100 2 ea inhalation DAILY COPD 07/09/22 07/09/22 mcg-vilanterol 25 mcg/dose inhalation powder (Breo Ellipta) fluticasone propionate 50 1 spray intranasal QDAY allergies 07/09/22 07/09/22 mcg/actuation nasal spray,suspension (Flonase Allergy Relief) gabapentin 400 mg capsule 400 mg PO TID Pain 07/09/22 07/09/22 prednisone 20 mg tablet 20 mg PO BID COPD 07/09/22 07/09/22 Previous Rx's Medication Instructions Recorded acetaminophen 325 mg tablet 650 mg PO Q4HP PRN As Needed For 11/18/18 Fever Or Pain sildenafil 100 mg tablet 100 mg PO DAILY PRN sexual 02/18/22 activity #90 tabs benzonatate 200 mg capsule 200 mg PO BID PRN cough #30 caps 07/07/22 Allergies Allergy/AdvReac Type Severity Reaction Status Date / Time umeclidinium Allergy Mild Verified 07/09/22 10:38 [From Vidal Watson] 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 current occupational exposures/hazards: Yes ROS Obtained: Yes Systems reviewed as appropriate & no additional complaints except as documented Constitutional Constitutional: Reports fever(s), Denies headache(s) and Reports weakness ENT Ears, Nose, Mouth, and Throat: Denies headache(s), Denies nasal discharge and Denies sore throat Cardiovascular Cardiovascular: Denies chest pain Respiratory Respiratory: Reports shortness of breath, Reports cough and Reports wheezing Gastrointestinal Gastrointestingal: Reports vomiting; Denies abdominal pain, constipation or diarrhea Genitourinary Male Genitourinary: Denies difficulty
--- NOTE | 2022-07-09 13:44 | PC.NURSE ---
CARE MANAGEMENT CALLED FOR BED
--- NOTE | 2022-07-09 14:56 | EXP.HP ---
History of Present Illness *Admission Date: 07/09/22 *Reason for visit:: Dizzy, SOA *History of present illness: Mr. Min is a 62-year-old male who presented from home due to worsening dizziness, chills, fatigue over the past 4 days. States last night he got dizzy and almost passed out. Has had decreased appetite. No fernanda fever, nausea, vomiting. Has noted to have worsening shortness of breath and dyspnea with exertion since Thursday. Longtime smoker with a history of COPD. Cough has been dry until today and it is marginally productive. On arrival to the ER he was found to be hypoxic. Work-up positive for flu A. Given his new hypoxia, flu diagnosis, oxygen requirement, patient admitted to medicine for observation and treatment. After arriving to the floor, patient states he is feeling somewhat better after having a breathing treatment. Still requiring 2 to 3 L nasal cannula oxygen. Is hemodynamically stable. Denies any confusion or headache. Reports he was started on antibiotics and steroids by his PCP on Thursday, symptoms did not improve. He has not had prior testing for flu. History of smoking since the age of 18, approximately a pack a day. 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 [facility] Medical History (Updated 07/09/22 @ 16:36 by Peewee Prieto MD) COPD (chronic obstructive pulmonary disease) 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 Hypoxemic respiratory failure, chronic Social History Smoking Status: Current every day smoker tobacco type: cigarettes packs per day: 1 second hand exposure: Yes alcohol intake: never substance use type: denies use current occupational status: employed Travel in the last 8 weeks: None household members: significant other housing: house 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 current occupational exposures/hazards: Yes Review of Systems Review of Systems Review of systems (narrative): 14 point review of systems performed, pertinent positives and negatives as per HPI Constitutional Constitutional: Denies headache(s) and Reports weakness ENT Ears, Nose, Mouth, and Throat: Denies headache(s) *Musculoskeletal Musculoskeletal: Denies numbness *Neurologic Neurologic: Denies headache(s), Denies numbness and Reports weakness Meds Home Medications and Allergies Home Medications Medication Instructions Recorded Confirmed Type acetaminophen 325 mg tablet 650 mg PO Q4HP PRN As Needed For 11/18/18 07/09/22 Rx Fever Or Pain sildenafil 100 mg tablet 100 mg PO DAILY PRN sexual 02/18/22 07/09/22 Rx activity #90 tabs benzonatate 200 mg capsule 200 mg PO BID PRN cough #30 caps 07/07/22 07/09/22 Rx albuterol sulfate 90 mcg/actuation 1 puff inhalation Q6H soa 07/09/22 07/09/22 History aerosol inhaler aspirin 81 mg tablet,delayed 81 mg PO DAILY heart health 07/09/22 07/09/22 History release fluticasone furoate 100 2 ea inhalation DAILY COPD 07/09/22 07/09/22 History mcg-vilanterol 25 mcg/dose inhalation powder (Breo Ellipta) fluticasone propionate 50 1 spray intranasal QDAY allergies 07/09/22 07/09/22 History mcg/actuation nasal spray,suspension (Flonase Allergy Relief) gabapentin 400 mg capsule 400 mg PO TID Pain 07/09/22 07/09/22 History prednisone 20 mg tablet 20 mg PO BID COPD 07/09/22 07/09/22 History New Prescriptions to Start Prescriptions: Allergies Allergy/AdvReac Type Severity Reaction Status Date / Time umeclidinium Allergy Mild Verified 07/09/22 10:38 [From Vidal Watson] Exam Data for Last 24 hours Vital signs and Labs for Last 24 Hours: Temp Pulse Resp BP Pulse Ox 98.5 F 76 21 124/80 96 07/09/22 11:16 07/09/22 14:30 07/09/22 14:30 07/09/22 14:30 07/09/22 14:30 Laboratory Results - last 24 hr 07/09/22 11:12: WBC 6.1, RBC 4.89, Hgb 15.3, Hct 46.3, MCV 94.6 H, MCH 31.2, MCHC 33.0, RDW 13.3, Plt Count 249, MP
--- NOTE | 2022-07-09 14:56 | PC.NURSE ---
patient arrived by wheelchair from ED
--- NOTE | 2022-07-09 19:03 | PC.NURSE ---
SINCE RECIEVING REPORT, PT HAS BEEN PLEASANT. ALERT X4, BILAT WHEEZES IN LUNG BASES. O2 ON 3L VIA NS. COMPLAINTS OF SOB WHEN AMBULATING TO BR AT TIMES. FREQUENT NON PRODUCTIVE COUGH. NO OTHER CONCERNS AT THIS TIME.
--- NOTE | 2022-07-09 20:24 | PC.NURSE ---
after scanning and opening gabapentin, pt decided he did not want to take it, states he only had it for when he had shingles, medication wasted and verified with OCHOA Montes
[2022-07-10] VITALS (9 sets, daily range): BP systolic 113–135; BP diastolic 67–75; PULSE 66–99; RESP 16–20; TEMP 36.6–37; O2SAT 82–96; BMI 19.5
--- NOTE | 2022-07-10 04:51 | PC.NURSE ---
Addendum entered by Toma Angeles RN 07/10/22 04:54: pt has remained afebrile Original Note: pt remains on 3L NC, does report some SOA with exertion, O2 sats 94-95%, no complaints of pain
--- NOTE | 2022-07-10 07:22 | EXP.DC.SUM ---
General Admission date:: 07/09/22 Discharge date: 07/11/22 HPI HPI HPI: Mr. Min is a 62-year-old male who presented from home due to worsening dizziness, chills, fatigue over the past 4 days. States last night he got dizzy and almost passed out. Has had decreased appetite. No fernanda fever, nausea, vomiting. Has noted to have worsening shortness of breath and dyspnea with exertion since Thursday. Longtime smoker with a history of COPD. Cough has been dry until today and it is marginally productive. On arrival to the ER he was found to be hypoxic. Work-up positive for flu A. Given his new hypoxia, flu diagnosis, oxygen requirement, patient admitted to medicine for observation and treatment. After arriving to the floor, patient states he is feeling somewhat better after having a breathing treatment. Still requiring 2 to 3 L nasal cannula oxygen. Is hemodynamically stable. Denies any confusion or headache. Reports he was started on antibiotics and steroids by his PCP on Thursday, symptoms did not improve. He has not had prior testing for flu. History of smoking since the age of 18, approximately a pack a day. 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 History of COPD.? Found to be flu A positive.? New oxygen requirement.? Admitted to medicine for management of hypoxemic respiratory failure secondary to COPD exacerbation from flu.? Treated with steroids, Levaquin, Tamiflu. Will discharge on Levaquin, steroids, Tamiflu for COPD exacerbation and to complete 5 days of antiviral therapy. Resume home Trelegy. Continue duo nebs as needed. Patient continues to require 1 L nasal cannula oxygen. Will discharge home with supplemental O2, recommend close follow-up and reevaluation in the outpatient setting. Tobacco use disorder: Counseled on smoking cessation during hospitalization. Treating with nicotine replacement patch. Stable for discharge home to continue to convalesce. 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 Exam Data for Last 24 hours Vital signs and Labs for Last 24 Hours: Temp Pulse Resp BP Pulse Ox 97.9 F 69 17 135/68 96 07/10/22 04:00 07/10/22 06:09 07/10/22 04:00 07/10/22 04:00 07/10/22 06:09 Laboratory Results - last 24 hr 07/09/22 11:12: WBC 6.1, RBC 4.89, Hgb 15.3, Hct 46.3, MCV 94.6 H, MCH 31.2, MCHC 33.0, RDW 13.3, Plt Count 249, MPV 8.3, Neut % (Auto) 83.8 H, Lymph % (Auto) 8.1 L, [place] % (Auto) 7.0, Eos % (Auto) 0.1, Baso % (Auto) 0.9, Neut # (Auto) 5.1, Lymph # (Auto) 0.5 L, [place] # (Auto) 0.4, Eos # (Auto) 0.0, Baso # (Auto) 0.1 07/09/22 11:12: Sodium 137, Potassium 3.8, Chloride 96 L, Carbon Dioxide 31 H, Anion Gap 13.8, BUN 9, Creatinine 0.80, Estimated Creat Clear 82, Estimated GFR 99, Est GFR ( Amer) 119, Glucose 117 H, Calcium 8.6, Troponin I < 0.01 07/09/22 11:12: SARS-CoV-2 (PCR) Not detected, Influenza A Untype (PCR) Detected A, Influenza Type B (PCR) Not detected I & O for Last 24 hours: Intake & Output 07/07/22 07/08/22 07/09/22 07/10/22 23:59 23:59 23:59 23:59 Intake Total 240 / 240 748 / 748 Output Total 250 / 250 Balance -10 748 / 748 Weight 61.887 kg 59.92 kg Constitutional Constitutional: mild distress, thin and chronically ill appearing *Routine HEENT Exam Head: Present normocephalic Eye: Present EOMI and PERRL ENT: Present mucous membranes moist *Routine Neck Exam Neck: Present supple; Absent lymphadenopathy *Routine Respiratory Exam Respiratory: Present accessory muscle use and diminished air movement; Absent rhonchi, wheezes or crackles *Routine Cardiovascular Exam Cardiovascular: Present RRR *Routine Abdominal Exam Abdominal: Present soft and normoactive bowel sounds; Absent tenderness *Routine Rectal Exam Patient deferred: visual exam *Routine Exa
[2022-07-10 07:29] LABS: Basophils % 0.3 % (0.1-2.0); Eosinophils % 0.1 % (0.1-12.0); Hematocrit 46.7 % (42.0-52.0); Hemoglobin 14.8 g/dL (14.1-18.0); Lymphocytes # 0.7 K/mm3 (0.7-4.5); Lymphocytes % 21.5 % (10-50); Mean Corpuscular HGB Conc 31.8 g/dL (31.8-35.4); Mean Corpuscular Hemoglobin 30.3 pg (27.0-31.2); Mean Corpuscular Volume 95.4 fl (80-94); Mean Platelet Volume 7.5 fl (7.4-10.4); Monocytes # 0.3 K/mm3 (0.1-1.0); Neutrophils # 2.3 K/mm3 (1.8-7.8); Neutrophils % 69.1 % (37.0-80.0); Platelet Count 237 K/mm3 (142-424); Red Cell Distribution Width 13.6 % (11.5-17.5); White Blood Count 3.3 K/mm3 (4.8-10.8)
[2022-07-10 07:34] LABS: Alanine Aminotransferase 36 U/L (12-78); Albumin Level 3.9 g/dl (3.5-5.0); Albumin/Globulin Ratio 1.5 (1.1-1.8); Alkaline Phosphatase 87 U/L (38-126); Anion Gap 13.8 mEq/L (5-15); Aspartate Amino Transferase 57 U/L (17-59); Bilirubin,Total 0.3 mg/dl (0.2-1.3); Blood Urea Nitrogen 12 mg/dl (9-20); Calcium 8.9 mg/dl (8.4-10.2); Carbon Dioxide 35 mmol/L (22.0-30.0); Chloride 95 mmol/L (98-107); Creatinine Clearance Estimated 95 mL/min (50-200); Estimated Glomerular Filt Rate 115 ml/min (>60); GFR (African American) 139 ML/MIN (>60); Globulin 2.6 g/dL (1.3-3.2); Glucose 166 mg/dl (74-100); Magnesium 2.2 mg/dl (1.6-2.3); Potassium 3.8 mmoL/L (3.5-5.1); Sodium 140 mmol/L (136-145); Total Protein,Serum 6.5 g/dl (6.3-8.2)
--- NOTE | 2022-07-10 09:47 | HMH.PHAINT1 ---
Pharmacy Intervention Comments: Medication reconciliation completed via chart review, external fill history, and patient interview. Of note, patient states he no longer uses Breo Ellipta inhaler and instead gets samples of the Trelegy inhaler from Dr. Gold's office. -Shreya Dela Cruz, PharmD Candidate 2022
--- NOTE | 2022-07-10 10:13 | EXP.ACUTE.PN ---
Subjective *Date: 07/10/22 *Time: 10:18 Interval history: Patient continues to be quite dyspneic with exertion. Still requiring 2 to 3 L nasal cannula oxygen. Denies any chest pain, nausea, vomiting. Still has prominent cough. No confusion. Very winded just walking from bed to bathroom. Tolerating fair p.o. intake. Medical Exam Vital signs and Labs for Last 24 Hours: Vital Signs Temp Pulse Pulse Resp BP BP Pulse Ox 07/10/22 08:00 92 L 07/10/22 08:00 97.9 F 99 H 18 123/75 93 L 07/10/22 08:20 89 L 07/10/22 06:09 69 07/10/22 06:09 68 07/10/22 06:09 96 07/10/22 04:00 97.9 F 77 17 135/68 94 L 07/10/22 01:13 71 07/10/22 01:13 74 07/09/22 20:00 98 F 69 17 113/69 95 07/09/22 18:30 74 07/09/22 18:30 75 07/09/22 18:30 95 07/09/22 15:16 98.1 F 82 16 126/79 95 07/09/22 14:30 76 21 124/80 96 07/09/22 13:00 90 19 120/79 96 07/09/22 12:54 107 H 16 149/90 H 96 07/09/22 12:30 93 H 18 127/82 95 07/09/22 14:56 98.5 F 76 21 124/80 07/09/22 11:18 14 93 L 07/09/22 11:16 98.5 F 118 H 24 110/75 89 L Intake and Output 07/09/22 07/10/22 07/10/22 23:59 07:59 15:59 Intake Total 240 / 240 748 / 748 Output Total 250 / 250 Balance -10 748 / 748 Intake: Intake, Oral Amount 240 / 240 Intake, Total IV Amount 748 / 748 Ringers Solution,Lactated 1,000 748 / 748 ml @ 50 mls/hr IV .Q20H PENDING SALE TO [facility] Rx #:[id number] Output: Output, Urine Amount 250 / 250 Other: Number of Unmeasured Voids 1 Weight 59.92 kg 59.92 kg Patient Weight 07/10/22 23:59 Weight 59.92 kg Laboratory Results - last 24 hr 07/09/22 11:12: WBC 6.1, RBC 4.89, Hgb 15.3, Hct 46.3, MCV 94.6 H, MCH 31.2, MCHC 33.0, RDW 13.3, Plt Count 249, MPV 8.3, Neut % (Auto) 83.8 H, Lymph % (Auto) 8.1 L, [place] % (Auto) 7.0, Eos % (Auto) 0.1, Baso % (Auto) 0.9, Neut # (Auto) 5.1, Lymph # (Auto) 0.5 L, [place] # (Auto) 0.4, Eos # (Auto) 0.0, Baso # (Auto) 0.1 07/09/22 11:12: Sodium 137, Potassium 3.8, Chloride 96 L, Carbon Dioxide 31 H, Anion Gap 13.8, BUN 9, Creatinine 0.80, Estimated Creat Clear 82, Estimated GFR 99, Est GFR ( Amer) 119, Glucose 117 H, Calcium 8.6, Troponin I < 0.01 07/09/22 11:12: SARS-CoV-2 (PCR) Not detected, Influenza A Untype (PCR) Detected A, Influenza Type B (PCR) Not detected 07/10/22 07:03: WBC 3.3 L D, RBC 4.90, Hgb 14.8, Hct 46.7, MCV 95.4 H, MCH 30.3, MCHC 31.8, RDW 13.6, Plt Count 237, MPV 7.5, Neut % (Auto) 69.1, Lymph % (Auto) 21.5, [place] % (Auto) 9.0, Eos % (Auto) 0.1, Baso % (Auto) 0.3, Neut # (Auto) 2.3, Lymph # (Auto) 0.7, [place] # (Auto) 0.3, Eos # (Auto) 0.0, Baso # (Auto) 0.0 07/10/22 07:03: Sodium 140, Potassium 3.8, Chloride 95 L, Carbon Dioxide 35 H, Anion Gap 13.8, BUN 12 D, Creatinine 0.70, Estimated Creat Clear 95, Estimated GFR 115, Est GFR ( Amer) 139, Glucose 166 H D, Calcium 8.9, Magnesium 2.2, Total Bilirubin 0.3, AST 57, ALT 36, Alkaline Phosphatase 87, Total Protein 6.5, Albumin 3.9, Globulin 2.6, Albumin/Globulin Ratio 1.5 I & O for Labs for Last 24 Hours: Intake & Output 07/07/22 07/08/22 07/09/22 07/10/22 23:59 23:59 23:59 23:59 Intake Total 240 / 240 748 / 748 Output Total 250 / 250 Balance - / 10 748 / 748 Weight 61.887 kg 59.92 kg Constitutional: Present mild distress, thin and chronically ill appearing Head: Present atraumatic and normocephalic ENT: Present normal exam Neck: Present normal inspection Respiratory: Present accessory muscle use, wheezes and diminished air movement; Absent rhonchi, crackles or normal respiratory effort Cardiac: Present Reg Rate and Rhythm GI: Present normal bowel sounds; Absent tenderness Extremities: Present normal inspection and full ROM Skin: Present intact; Absent erythema Neuro: Present Grossly Intact, alert, awake, oriented x 3 and moves all extremities Assessment a
--- NOTE | 2022-07-10 19:21 | PC.NURSE ---
Remains on 2 L NC. CB in reach. No c/o at this time.
[2022-07-11 00:53] VITALS: PULSE 86; PULSE 97
[2022-07-11 04:00] VITALS: BP 125/76; PULSE 80; RESP 20; TEMP 36.8; O2SAT 94
[2022-07-11 04:30] VITALS: BMI 19.7
--- NOTE | 2022-07-11 04:30 | PC.NURSE ---
pt has rested more this shift, room air sat of 82% documented this shift, pt gets short of breath with exertion, feels like extension on the oxygen tubing is making it harder for him to breathe when he is in bed, extension removed, urinal at bedside, is currently on 1L NC, resting quietly with an O2 sat of 94%, some expiratory wheezing noted on auscultation
[2022-07-11 06:02] VITALS: PULSE 82; O2SAT 93
[2022-07-11 08:00] VITALS: BP 123/74; PULSE 101; RESP 26; TEMP 36.6; O2SAT 91
--- NOTE | 2022-07-11 09:46 | CARE MANAGER ---
Patient going to require home Oxygen. Information sent to [facility]. OCHOA Childress
--- NOTE | 2022-07-11 10:58 | HMH.PHAINT1 ---
Pharmacy Intervention Comments: Discharge counseling completed at bedside with the patient. Discussed new medications (gabapentin, levofloxacin, prednisone 40 mg, and tamiflu), continued medications, and discontinued medications (Augmentin, prednisone 20 mg). Overviewed indication and possible side effects/mitigation strategies for each new medication. Patient states he does not like the way gabapentin has made him feel in the past. Took gabapentin off the discharge list. Patient has no other questions or concerns at this time.
--- NOTE | 2022-07-15 15:20 | CARE MANAGER ---
Spoke with patient for post-discharge phone interview, patient states that he is doing well and has no issues at this time.
== END 2022-07-11 12:02 | disposition home or self-care (01) | DRG 189 ==
LOC: ER 13:34 → 2ND 14:28
PROVIDERS: Admitting Provider Internal Medicine Adolescent Medicine; Emergency Provider Emergency Medicine; PCP Emergency Medicine; Visit Provider Internal Medicine Adolescent Medicine
DX: J96.21 Acute and chronic respiratory failure with hypoxia (principal); J10.1 Influenza due to other identified influenza virus with other respiratory manifestations; J43.1 Panlobular emphysema; F17.209 Nicotine dependence, unspecified, with unspecified nicotine-induced disorders; Z71.6 Tobacco abuse counseling
CPT/HCPCS: 36415; 71045; 80048; 80053; 83735; 84484; 85025; 93005; 94640; 94667; 94760; 94761; 99285; C9803; J0696; J1956; U0003; U0005

== ENCOUNTER → 2022-08-19 06:31 | Outpatient (CLI) | payer BC, SELFPAY ==
[2022-08-19 19:10] LABS: Adenovirus,PCR Not Detected (NotDetected); Bordetella Pertussis Not Detected (NotDetected); Chlamydophila Pneumoniae, PCR Not Detected (NotDetected); Coronavirus 19, PCR Not Detected (NotDetected); Coronavirus 229E Not Detected (NotDetected); Coronavirus NL63 Not Detected (NotDetected); Coronavirus OC43 Not Detected (NotDetected); Coronovirus HKU1,PCR Not Detected (NotDetected); Human Metapneumovirus Not Detected (NotDetected); Influenza A, PCR Not Detected (NotDetected); Influenza AH1, 2009 Not Detected (NotDetected); Influenza AH1, PCR Not Detected (NotDetected); Influenza AH3,PCR Not Detected (NotDetected); Influenza B, PCR Not Detected (NotDetected); Mycoplasma Pneumoniae, PCR Not Detected (NotDetected); Parainfluenza 1, PCR Not Detected (NotDetected); Parainfluenza 2, PCR Not Detected (NotDetected); Parainfluenza 3, PCR Not Detected (NotDetected); Parainfluenza 4, PCR Not Detected (NotDetected); Respiratory Syncytial Virus Not Detected (NotDetected)
[2022-08-20 10:09] LABS: Rhinovirus/Enterovirus Detected (NotDetected)
== END ==
LOC: LAB.DROPOF 08-20 06:31
PROVIDERS: PCP Emergency Medicine; Visit Provider Emergency Medicine
DX: J44.9 Chronic obstructive pulmonary disease, unspecified (principal); R09.89 Other specified symptoms and signs involving the circulatory and respiratory systems; B34.1 Enterovirus infection, unspecified
CPT/HCPCS: 87581; 87632; 87798; C9803; U0003; U0005

== ENCOUNTER → 2022-08-30 09:25 | Outpatient (CLI) | payer BC, SELFPAY ==
[2022-08-30 12:11] LABS: Prostate Specific Ag Screen 9.9 ng/ml (0.0-4.0)
== END ==
PROVIDERS: PCP Emergency Medicine; Visit Provider Urology
DX: N40.1 Benign prostatic hyperplasia with lower urinary tract symptoms (principal)
CPT/HCPCS: 36415; G0103

== ENCOUNTER → 2022-11-05 07:38 | Outpatient (CLI) | payer BC, SELFPAY ==
--- NOTE | 2022-11-05 07:42 | CA_ITS ---
APPROVED REPORT EXAM: Comprehensive 2D, Doppler, and color-flow Echocardiogram Online Content Developer: Tanesha Padilla CRT Ht: 5 ft 8 in Wt: 140lbs BSA: 1.76 BP: 111/77 mmHg Indications: Abnormal ECG, COPD, Shortness of Breath, stent, pre-op 2D Dimensions LVOT 1.96 cm (M/F) 1.5-2.5 M-Mode Dimensions RVDd 2.85 cm (0.9-2.6) LA Diam 3.43 cm (1.9-4.0) LVDd 3.85 cm (3.5-5.7) Ao Diam 3.66 cm (2.0-3.7) LVDs 2.52 cm (3.5-5.7) IVSd 0.75 cm (0.6-1.1) PWd 0.61 cm (0.6-1.1) EF (Teich) 64.30% FS 34.50% EDV (Teich) 63.90 mL TAPSE 2.63 (<1.7) ESV (Teich) 22.80 mL LV Diastology E Decel Time 150.00 (160-240 msec) E/A Ratio 1.01 MED E' 8.70 (< 7 cm/sec) MED A' 12.80 cm/s E'/MED E' Ratio 4.61 (>14) LAT E' 7.70 (<10 cm/sec) LAT A' 6.20 cm/s E/LAT E' Ratio 5.21 (>14) Aortic Valve AO Peak GR. 2.60 mmHg Mitral Valve MV E Max Som. 40.00 (40-130 cm/s) MV A Velocity 40.00 (40-130 cm/s) E/A Ratio 1.01 MV Decel. Time 150.00 (160-240 ms) MV PHT 44.00 ms Tricuspid Valve TR P. Velocity 256.00 cm/s RAP Estimate 10.00 mmHg RVSP 36.30 mmHg Left Ventricle Left atrium is mildly enlarged, left ventricle is normal size mild concentric left ventricular hypertrophy, estimated ejection fraction 55% with no regional wall motion abnormality, there is abnormal septal motion, grade 1 diastolic dysfunction seen without tissue Doppler evidence of raise left atrial pressure. Right Ventricle Right atrium and right ventricle are mildly enlarged with normal contractility. Aortic Valve Aortic valve is minimally thickened and fibrosed there is no aortic stenosis aortic insufficiency. Mitral Valve Mitral valve is grossly normal, there is trace mitral regurgitation. Tricuspid Valve Tricuspid valve grossly normal, there is trace tricuspid regurgitation, tricuspid regurgitation jet velocity is inadequate for calculation of the right ventricular systolic pressure. Pulmonic Valve Pulmonic valve is poorly visualized. Great Vessels Aortic root is normal size. Inferior vena cava is normal size with normal inspiratory collapse. Pericardium No significant pericardial effusion noted. Conclusion 1. Mild biatrial enlargement, normal left ventricular size, mild concentric left ventricular hypertrophy, estimated ejection fraction 55% with no regional wall motion abnormality, there is abnormal septal motion, grade 1 diastolic dysfunction seen without tissue Doppler evidence of raise left atrial pressure. 2. Mildly enlarged right ventricle with normal contractility. 3. Trace mitral and tricuspid regurgitation. 4. No significant pericardial effusion noted. 5. Inferior vena cava is normal size with normal inspiratory collapse. Electronically signed by : Daniele Monte MD 11/05/2022 13:48:24
--- NOTE | 2022-11-05 08:20 | NM_ITS ---
APPROVED REPORT Exam: Nuclear Stress Test Indication: CAD, 1 STENT, TOB USE, SOB Patient Location: Outpatient Stress Tech: Lisa Barcenas NM Tech:Kaur KinseyJAMES RT(R)(N) Ht: 5 ft 9 in Wt: 135 lbs HR: 69 bpm BP: 104/70 mmHg BSA: 1.75 m2 TID: 1.07 BMI: 19.9 History: CAD, 1 STENT, TOB USE, SOB Procedure: Patient received 0.4 mg of intravenous Lexiscan, resting heart rate 69 bpm, resting blood pressure 104/70 mmHg, with Lexiscan maximum heart rate achieved was 115 bpm which is Less than 85 % of the maximum predicted heart rate and blood pressure was 127/66 mmHg. With Lexiscan, patient denied any complaint of chest pain. Electrocardiogram Resting electrocardiogram shows sinus rhythm, with Lexiscan there is less than 1.[address] segment depression noted from the baseline EKG. The EKG portion of the Lexiscan is nondiagnostic. Cardiac Stress and Resting SPECT Images: Cardiac Stress and Resting SPECT images were obtained using technetium 99m Myoview 31.6 mCi stress and 9.41 mCi at rest. Gated SPECT analysis of segmental wall motion and calculation of the ejection fraction also done. Prone images were also obtained. Cardiac stress and rest respectively show uniform myocardial activity without segmental perfusion abnormality, computer derived ejection fraction is 39%, however visually estimated ejection fraction 50% with no regional wall motion abnormality, right ventricle is normal size and contractility. Conclusion: 1. The EKG portion of the Lexiscan is nondiagnostic. 2. No scintigraphic evidence of reversible ischemia seen, visually estimated ejection fraction is approximately 50% with no regional wall motion abnormality, right ventricle is normal size and contractility. 3. Likely normal Lexiscan Myoview study. Electronically signed by : Daniele Monte MD 11/05/2022 12:36:42
--- NOTE | 2022-11-05 10:48 | CA_ITS ---
APPROVED REPORT Exam: Pharmacologic Technologist: Lisa Barcenas Ht: 5 ft 8 in Wt: 140 lbs BSA: 1.76 m2 HR: 63 bpm BP: 104/70 mmHg Indications: CAD Medical History Medications: Duoneb,,,,, Nicotine,,,,, Albuterol,,,,, SilDENAFIL,,,,, Trelegy Ellipta,,,,, Stress Test Details Test: LEXISCAN HR Resting HR: 69 bpm Max Heart Rate (APMHR): 160.421130 bpm Max HR Achieved: 115 bpm Target HR (85% APMHR): 136.090862 bpm % of APMHR: 71.88 Recovery HR: 90 bpm BP Resting BP: 104.0/70.0 mmHg Max BP: 127.0/66.0 mmHg Recovery BP: 110.0/72.0 mmHg ECG Resting ECG: Normal sinus rhythm, borderline short CA interval Clinical Exercise duration: 04:00 min Highest Stage Achieved: Stress ECG Conclusion Symptoms: Shortness of air, chest tightness, mild stomach and head discomfort. Arrhythmias/Ectopy: Occasional PVC ST-T Changes: Nonspecific T wave changes (flattening) Conclusion: Non-diagnostic Lexiscan stress. Myoview images reported separately. Test Summary REST . . . . . . . Resting REST 06:03 . . 69 . 104/ 70 . . Stage 1 . . . . . . . Myoview Injected Stage 1 01:00 . . 87 . . . . Stage 2 . . . . . . . chest tightness Stage 2 01:00 . . 108 . 111/ 78 . . Stage 3 01:00 . . 107 . 120/ 65 . . Stage 4 01:00 . . 98 . 127/ 66 . Stop exercise at 04:00 RECOVERY 01:00 . . 84 . . . . RECOVERY 02:00 . . 93 . . . . RECOVERY 03:00 . . 89 . 106/ 72 . . RECOVERY 03:30 . . 91 . 110/ 72 . . Electronically signed by : Daniele Monte MD 11/05/2022 11:47:47
== END ==
PROVIDERS: PCP Emergency Medicine; Visit Provider Nurse Practitioner Family
DX: R06.09 Other forms of dyspnea (principal); Z01.810 Encounter for preprocedural cardiovascular examination; I25.118 Atherosclerotic heart disease of native coronary artery with other forms of angina pectoris; J42 Unspecified chronic bronchitis; R94.31 Abnormal electrocardiogram [ECG] [EKG]; F17.200 Nicotine dependence, unspecified, uncomplicated; Z95.5 Presence of coronary angioplasty implant and graft
CPT/HCPCS: 78452; 93017; 93306; A9502; J2785

== ENCOUNTER 2023-05-10 18:07 | Emergency (ER) | payer BC, SELFPAY ==
[2023-05-10 18:15] VITALS: BP 138/84; PULSE 119; RESP 21; TEMP 37; O2SAT 99; BMI 21.1
[2023-05-10 18:37] LABS: UTC Influenza A Antigen Negative (Negative); UTC Influenza B Antigen Negative (Negative)
--- NOTE | 2023-05-10 18:52 | EXP.UTC ---
Discharge Plan Disposition Patient Disposition: Home, Self-Care Condition: Good Prescriptions Prescriptions: No Action Zoey Ellipta 100-62.5-25 mcg blister with device 1 inh inhalation DAILY Qty: 28 5RF ipratropium-albuterol 0.5 mg-3 mg(2.5 mg base)/3 mL solution for nebulization 3 ml inhalation Q4-6H PRN (Reason: shortness of breath or wheezing) Qty: 180 2RF sildenafil 100 mg tablet 100 mg PO DAILY PRN (Reason: sexual activity) Qty: 90 10RF Rx Instructions: administer 30 minutes to 4 hours before activity tamsulosin 0.4 mg capsule 0.4 mg PO DAILY Patient Comments: TAKE 1 CAPSULE BY MOUTH ONCE DAILY nicotine 14 mg/24 hr patch 24 hour See Rx Instructions .ROUTE .COMPLEX Rx Instructions: APPLY 1 PATCH TOPICALLY ONCE DAILY aspirin 81 mg tablet,delayed release (DR/EC) See Rx Instructions .ROUTE .COMPLEX Rx Instructions: Take 1 tablet by mouth once daily albuterol sulfate 90 mcg/actuation HFA aerosol inhaler See Rx Instructions .ROUTE .COMPLEX Rx Instructions: INHALE 1 PUFF BY MOUTH EVERY 6 HOURS FOR COPD/BREATHING PROBLEMS Referrals Follow up/Referrals: Renaldo Gold MD [Primary Care Provider] - See instructions Activity Restrictions/Add. Instructions Additional Instructions/Restrictions: *Monitor Temp, Over the counter Motrin or Tylenol as directed/as needed Tylenol every 4 hours and Motrin every 6 hours (as long as your family doctor has told you that you can take it) for fever or pain. and straight to ER if unable to lower temp less than 101.0 after medication given *Warm salt water gargles may help to soothe the throat *Throat Lozenges? *Warm fluids like tea with honey may help to soothe the throat? *Sleep elevated *Humidifier/Vaporizer Follow up IMMEDIATELY for new or worsening symptoms or no Noticeable improvement over the next 48-72 hours. 911 for difficulty breathing or swallowing You were tested for today for COVID19 your test result should be back in the next 24 hours You may check your results on the [facility] Portal for your results Clinical Impressions Clinical Impression: Exposure to COVID-19 virus Stand Alone Forms Stand Alone Forms: Work/School Release Instructions Patient Instructions: DI for Viral Syndrome Discharge ED Provider: Abigail Marks [facility] [place] General Stated complaint: exposed,body aches Mode of Arrival: Ambulatory Source of Information: Patient Limitations: No Limitations Time Seen by Provider: 05/10/23 18:52 Description of Symptoms (Recalled from Triage Doc. by RN): house hold tested positive just wants to be tested to see HEENT Symptoms (Recalled from RN notes): No Resp Symptoms (Recalled from RN notes): No Skin Symptoms (Recalled from RN notes): No MS Symptoms (Recalled from RN notes): No Functional Status (Recalled from RN notes): n/a History of Present Illness Provider Complaint: Patient states that he took two home COVID test and they was negative but his family tested positive that he was around so states that he wanted to come in and get tested here to see if the one here is positive States that she is having body aches chills and so he came in to get checked Related Data Home Medications Medication Instructions Recorded Confirmed albuterol sulfate 90 mcg/actuation See Rx Instructions .Route 05/10/23 05/10/23 aerosol inhaler .COMPLEX Copd aspirin 81 mg tablet,delayed See Rx Instructions .Route 05/10/23 05/10/23 release .COMPLEX . nicotine 14 mg/24 hr daily See Rx Instructions .Route 05/10/23 05/10/23 transdermal patch .COMPLEX . tamsulosin 0.4 mg capsule 0.4 mg PO DAILY . 05/10/23 05/10/23 Previous Rx's Medication Instructions Recorded ipratropium 0.5 mg-albuterol 3 mg 3 ml inhalation Q4-6H PRN 07/11/22 (2.5 mg base)/3 mL nebulization shortness of breath or wheezing soln #180 mL fluticasone fur. 100 mcg-umeclid 1 inh in
[2023-05-10 19:07] VITALS: BP 138/84; PULSE 119; RESP 21; TEMP 37; O2SAT 99
== END 2023-05-10 19:07 | disposition home or self-care (01) ==
PROVIDERS: Emergency Provider Nurse Practitioner; PCP Emergency Medicine
DX: U07.1 COVID-19 (principal); F17.210 Nicotine dependence, cigarettes, uncomplicated; J44.9 Chronic obstructive pulmonary disease, unspecified; J96.11 Chronic respiratory failure with hypoxia
CPT/HCPCS: 87635; 87804; 99203; 99212; G0463

== ENCOUNTER 2023-09-17 21:05 | Outpatient (CLI) | payer BC, SELFPAY ==
[2023-09-17 18:56] LABS: Coronavirus 19, PCR Not Detected (NotDetected); Influenza A, PCR Not Detected (NotDetected); Influenza B, PCR Not Detected (NotDetected)
== END 2023-09-17 23:59 ==
LOC: LAB.DROPOF 21:05
PROVIDERS: PCP Student in an Organized Health Care Education/Training Program; Visit Provider Student in an Organized Health Care Education/Training Program
DX: R06.02 Shortness of breath (principal); R05.9 Cough, unspecified; R09.89 Other specified symptoms and signs involving the circulatory and respiratory systems
CPT/HCPCS: 87636

== ENCOUNTER 2023-10-05 06:58 | Outpatient (CLI) | payer BC, SELFPAY ==
--- NOTE | 2023-10-05 07:01 | CT_ITS ---
FINAL REPORT CLINICAL HISTORY: lung cancer screening CURRENT SMOKER 1PPD X46 YEARS COMPARISON: 03/07/2019 FINDINGS: CTDI vol (mGy): 2.90 DLP: 121.[address] images of the chest were obtained using the low-dose protocol for screening. There is no evidence of mediastinal or hilar mass or adenopathy. No axillary mass or adenopathy is identified. On the lung window images, severe emphysema and mild scarring is seen. There are multiple new nodules including the left upper lobe measuring 15 mm, and nodule just medial to this in the medial right upper lobe measures 16 mm. There is a 14 mm lateral nodule measuring 11 mm. There is also a posterior lateral right upper lobe nodule measuring 11 mm. A calcified granuloma is seen at the right lung base. IMPRESSION: Multiple new pulmonary nodules as above measuring up to 16 mm. Lung RADS category 4B. Recommend PET/CT for further evaluation. Reviewed, Interpreted and Dictated by Stephan Welsh III, MD Transcribed by Khalida Sampson Authenticated and [facility]
--- NOTE | 2023-10-05 07:01 | XR_ITS ---
FINAL REPORT CLINICAL HISTORY: cough FINDINGS: 2 views of the chest were obtained . The heart is normal in size. The mediastinum is within normal limits. The lungs are hyperexpanded consistent with COPD. A 20 mm left upper lobe nodular opacity is seen. There is no pneumothorax. Osseous structures are unremarkable. IMPRESSION: 20 mm left upper lobe nodular opacity. Recommend CT. Reviewed, Interpreted and Dictated by Stephan Welsh III, MD Transcribed by Khalida Sampson Authenticated and [facility]
== END 2023-10-05 23:59 ==
LOC: RAD 06:58
PROVIDERS: PCP Student in an Organized Health Care Education/Training Program; Visit Provider Student in an Organized Health Care Education/Training Program
DX: F17.210 Nicotine dependence, cigarettes, uncomplicated (principal); Z12.2 Encounter for screening for malignant neoplasm of respiratory organs; R05.9 Cough, unspecified
CPT/HCPCS: 71046; 71271

== ENCOUNTER 2023-10-22 14:09 | Outpatient (CLI) | payer BC, SELFPAY ==
[2023-10-22 14:38] LABS: Basophils # 0.1 K/mm3 (0-0.2); Basophils % 1.6 % (0.1-2.0); Eosinophils # 0.2 K/mm3 (0.0-0.4); Eosinophils % 4.3 % (0.1-12.0); Hemoglobin 16.3 g/dL (14.1-18.0); Lymphocytes # 1.7 K/mm3 (0.7-4.5); Lymphocytes % 31.4 % (10-50); Mean Corpuscular HGB Conc 32.5 g/dL (31.8-35.4); Mean Corpuscular Hemoglobin 31.6 pg (27.0-31.2); Mean Corpuscular Volume 97.2 fl (80-94); Mean Platelet Volume 7.5 fl (7.4-10.4); Monocytes # 0.5 K/mm3 (0.1-1.0); Monocytes % 9.2 % (1.7-9.3); Neutrophils % 53.7 % (37.0-80.0); Platelet Count 271 K/mm3 (142-424); Red Blood Count 5.15 M/mm3 (4.60-6.20); Red Cell Distribution Width 12.8 % (11.5-17.5); White Blood Count 5.5 K/mm3 (4.8-10.8)
[2023-10-25 00:06] LABS: QuantiFERON-TB Gold Plus Negative (Negative)
[2023-10-25 17:32] LABS: Aspergillus flavus Negative (Neg:<1:1); Aspergillus fumigatus Negative (Neg:<1:1); Aspergillus niger Negative (Neg:<1:1); Blastomyces Antibody Negative (Neg:<1:1); Histoplasma Antibody Quant Negative (Neg:<1:1)
== END 2023-10-22 23:59 ==
LOC: LAB 14:10
PROVIDERS: PCP Student in an Organized Health Care Education/Training Program; Visit Provider Internal Medicine Pulmonary Disease
DX: J43.1 Panlobular emphysema (principal); J45.909 Unspecified asthma, uncomplicated; R06.09 Other forms of dyspnea; R91.1 Solitary pulmonary nodule; J84.10 Pulmonary fibrosis, unspecified; F17.210 Nicotine dependence, cigarettes, uncomplicated
CPT/HCPCS: 36415; 85025; 86140; 86480; 86606; 86612; 86698

== ENCOUNTER 2023-10-25 12:11 | Outpatient (CLI) | payer BC, SELFPAY | END 2023-10-25 23:59 | LOC: LAB.DROPOF 10-27 12:11 | PROVIDERS: PCP Student in an Organized Health Care Education/Training Program; Visit Provider Internal Medicine Pulmonary Disease | DX: J43.1 Panlobular emphysema (principal) | CPT/HCPCS: 87116; 87186; 87206 ==

== ENCOUNTER 2023-10-26 12:10 | Outpatient (CLI) | payer BC, SELFPAY | END 2023-10-26 23:59 | LOC: LAB.DROPOF 10-27 12:10 | PROVIDERS: PCP Student in an Organized Health Care Education/Training Program; Visit Provider Internal Medicine Pulmonary Disease | DX: R89.9 Unspecified abnormal finding in specimens from other organs, systems and tissues (principal); Z79.899 Other long term (current) drug therapy | CPT/HCPCS: 87070; 87205 ==

== ENCOUNTER 2023-11-23 09:47 | Outpatient (CLI) | payer BC, SELFPAY | END 2023-11-23 23:59 | PROVIDERS: PCP Physician Assistant; Visit Provider Internal Medicine Pulmonary Disease | DX: R06.09 Other forms of dyspnea (principal) | CPT/HCPCS: 94060; 94618; 94727; 94729 ==

== ENCOUNTER 2024-02-15 10:23 | Outpatient (CLI) | payer BC, SELFPAY ==
--- NOTE | 2024-02-15 10:23 | CT_ITS ---
FINAL REPORT TECHNIQUE: Axial CT without IV contrast administration. Coronal and sagittal reformats were obtained and reviewed. This study was performed with techniques to keep radiation doses as low as reasonably achievable, (ALARA). Individualized dose reduction techniques using automated exposure control or adjustment of mA and/or kV according to the patient's size were employed. CLINICAL HISTORY: 3-month follow-up CT chest January 2024 COMPARISON: 10/05/2023 FINDINGS: CT CHEST without contrast There are 2 adjacent nodules within the superior segment of the left lower lobe. The more lateral nodule measuring 10 mm previously measured 12 mm and the more medial nodule measuring 17 x 9 mm previously measured 16 x 9 mm. The right upper lobe more lateral nodule on image 51 measures 11 mm and is unchanged. There are 2 medial lesions in the right middle lobe. The more medial nodule measures 14 mm and the more lateral nodule measures 11 mm, both unchanged. Advanced emphysematous disease is noted. No pleural or pericardial effusion is seen . No adenopathy or mass lesion is present . IMPRESSION: Stable lung nodules as above could be metastatic, inflammatory, or less likely primary tumor. Continued short-term follow-up recommended in 3 months. Reviewed, Interpreted and Dictated by Aditya Draper MD Transcribed by Bettye Ruby Authenticated and [facility]
== END 2024-02-15 23:59 | disposition home or self-care (01) ==
LOC: RAD 10:23
PROVIDERS: PCP Internal Medicine; Visit Provider Internal Medicine Pulmonary Disease
DX: R91.8 Other nonspecific abnormal finding of lung field (principal)
CPT/HCPCS: 71250

== ENCOUNTER 2024-05-06 05:31 | Inpatient (IN) | payer BC, SELFPAY ==
[2024-05-06] VITALS (15 sets, daily range): BP systolic 112–158; BP diastolic 70–101; PULSE 68–159; RESP 16–28; TEMP 36.8–37.5; O2SAT 2–99; BMI 23.6; BMI 23.3
--- NOTE | 2024-05-06 05:28 | ECG_ITS ---
APPROVED REPORT Exam: Resting ECG HR:159 bpm ECG Measurements Heart Rate 159 AXES MD 76 P 73 QRSd 88 QRS 80 QT 293 T 75 QTc 382 Conclusion SINUS TACHYCARDIA WITH SHORT MD INTERVAL, occasional ectopy NONSPECIFIC ST & T-WAVE ABNORMALITY Electronically signed by : ARLYN CHRISTINE, 05/07/2024 07:40:16
[2024-05-06] MEDS: IPRATROPIUM/ALBUTEROL 3 ML NEB 9 ML IH (05:30)
--- NOTE | 2024-05-06 05:31 | XR_ITS ---
PROCEDURE INFORMATION: Exam: XR Chest Exam date and time: 05/06/2024 5:36 AM Age: 64 years old Clinical indication: Shortness of breath; Additional info: SOA TECHNIQUE: Imaging protocol: Radiologic exam of the chest. Views: 1 view. COMPARISON: CT CHEST WO CON 02/15/2024 10:41 AM FINDINGS: Lungs: Apical emphysematous change. Scattered scarring/atelectasis. Increased interstitial lung markings of the right lower lobe and right middle lobe. Known lung nodularity not well visualized on this examination. Pleural spaces: Unremarkable. No pleural effusion. No pneumothorax. Heart/Mediastinum: Unremarkable. No cardiomegaly. Bones/joints: Degenerative changes of the visualized osseous structures. IMPRESSION: 1. Findings supportive of COPD, difficult to exclude right lower lobe and right middle lobe infection, although likely interstitial markings related to scarring/architectural distortion. Correlate clinically. 2. No focal consolidation.
[2024-05-06 05:33] LABS: Coronavirus 19, PCR Not Detected (NotDetected); Influenza A, PCR Not Detected (NotDetected); Influenza B, PCR Not Detected (NotDetected)
--- NOTE | 2024-05-06 05:36 | [facility].EDCP ---
Discharge Plan Disposition Patient Disposition: Admitted Condition: Serious Prescriptions Prescriptions: No Action cetirizine [24Hour Allergy] 10 mg tablet 10 mg PO DAILY Qty: 90 0RF albuterol sulfate 2.5 mg /3 mL (0.083 %) solution for nebulization 2.5 mg inhalation Q6H Qty: 75 2RF tadalafil 10 mg tablet 10 mg PO DAILY PRN (Reason: sexual activity) Qty: 30 1RF Rx Instructions: administer approximately 30min before sexual activity; do not use more than 1 dose per 24hrs albuterol sulfate [Ventolin HFA] 90 mcg/actuation HFA aerosol inhaler 1 inh inhalation QID Qty: 8 3RF ipratropium-albuterol 0.5 mg-3 mg(2.5 mg base)/3 mL solution for nebulization 3 ml inhalation Q4-6H PRN (Reason: shortness of breath or wheezing) Qty: 180 2RF Trelegy Ellipta 100-62.5-25 mcg blister with device 1 inh inhalation DAILY Qty: 28 5RF tamsulosin 0.4 mg capsule 0.4 mg PO DAILY Patient Comments: TAKE 1 CAPSULE BY MOUTH ONCE DAILY aspirin 81 mg tablet,delayed release (DR/EC) See Rx Instructions .ROUTE .COMPLEX Rx Instructions: Take 1 tablet by mouth once daily Referrals Follow up/Referrals: Lenny Christensen DO [Primary Care Provider] - See instructions Clinical Impressions Clinical Impression: Acute exacerbation of chronic obstructive pulmonary disease, Acute on chronic hypoxic respiratory failure, Sepsis, Pneumonia Print Language Print Language: Malaysian Discharge ED Provider: Lexi Somers HPI General Chief Complaint: Shortness of Breath/Dyspnea Stated Complaint: SOB Time Seen by Provider: 05/06/24 05:35 History of Present Illness HPI narrative: 64-year-old male with history of COPD on 3 L nasal cannula at home at baseline presents to the ER for complaints of shortness of breath. Patient states in the last day and a half he started feeling under the weather with nonproductive cough, fever up to 101. Patient states yesterday he started having increased work of breathing despite taking his home medications. He called EMS with significant increased work of breathing, shortness of breath. EMS found him saturating in the mid 80s on home oxygen. He did not significantly improve on increased nasal cannula, they did improve his oxygenation with CPAP during transport but patient only briefly tolerated this. Patient did receive 1 DuoNeb as well as 125 mg IV Solu-Medrol from EMS per their report. Patient was tachycardic with them but otherwise hemodynamically stable. Patient denies chest pain, nausea, vomiting, diarrhea, headache, or other associated symptoms. No peripheral edema, denies history of heart failure. Related Data Home Medications ?Medication ?Instructions ?Recorded ?Confirmed aspirin 81 mg tablet,delayed See Rx Instructions .Route 05/10/23 02/24/24 release .COMPLEX . tamsulosin 0.4 mg capsule 0.4 mg PO DAILY . 05/10/23 02/24/24 Previous Rx's ?Medication ?Instructions ?Recorded cetirizine 10 mg tablet (24Hour 10 mg PO DAILY allergies #90 tabs 12/16/23 Allergy) albuterol sulfate 2.5 mg/3 mL 2.5 mg (3 mL) inhalation Q6H #75 mL 01/01/24 (0.083 %) solution for nebulization tadalafil 10 mg tablet 10 mg PO DAILY PRN sexual activity 01/04/24 #30 tabs Ventolin HFA 90 mcg/actuation 1 inh inhalation QID #8 grams 03/23/24 aerosol inhaler (albuterol sulfate) fluticasone fur. 100 mcg-umeclid 1 inh inhalation DAILY #28 ea 04/18/24 62.5 mcg-vilant 25 mcg inhalat.powder (Trelegy Ellipta) ipratropium 0.5 mg-albuterol 3 mg 3 ml inhalation Q4-6H PRN 04/18/24 (2.5 mg base)/3 mL nebulization shortness of breath or wheezing soln #180 mL Allergies Allergy/AdvReac Type Severity Reaction Status Date / Time umeclidinium Allergy Mild Verified 02/24/24 10:34 [From Anoro Ellipta] [facility] Disclaimer: The information contained in this section may have been updated after the patient was seen, as this information can be updated by other users. Medical History Lumbar radicular pain This is not really a major complaint of this patient currently. His major issue is his breathing. Coronary artery disease Patient has had stents placed. He is following with cardiology currently. He has no chest pain complaints at this time. Abnormal electrocardiogram [ECG] [EKG] Hypoxemic respiratory failure, chronic COPD (chronic obstructive pulmonary disease) Patient has severe COPD. Patient has been seen by pulmonary and Dr. Becerra. Today his lungs have quite a bit of wheezes as well as rales and occasional rhonchi. They sound inflamed and irritated. Will give him an injection of dexamethasone as well as a prednisone burst and taper. Will see him back in about 2 weeks. Additionally this patient is new to me. I was only given 15 minutes so was unable to do a complete evaluation. 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 Surgical History S/P coronary artery stent placement History of surgery on upper extremity History of lung surgery Family History Other COPD (chronic obstructive pulmonary disease) Diabetes Heart attack Hypertension Social History (Updated 02/24/24 @ 10:35 by Teresa Padilla) Smoking Status: Former smoker smoking status stop date: October 2023 second hand exposure: Yes alcohol intake: never substance use type: denies use current occupational status: employed Travel in the last 8 weeks: None household members: significant other housing: house current occupation: [employer] current occupational exposures/hazards: Yes ROS Obtained: Yes All systems reviewed & no additional complaints except as documented Positive ROS per HPI Physical Exam General General appearance: alert and in distress (Obvious respiratory distress, increased work of breathing) Head Head exam: atraumatic and normocephalic Eye Eye exam: Present PERRL and EOMI ENT ENT exam: Present mucous membranes moist Neck Neck exam: Present normal inspection and full ROM Chest Chest inspection: Present symmetric chest wall rise and other (Supraclavicular, subcostal, intercostal retractions); Absent tenderness Respiratory Respiratory exam: Present respiratory distress, wheezes, accessory muscle use and other (Rhonchi, rales bilaterally with diminished breath sounds throughout, faint wheezing, significant increased work of breathing, tachypnea); Absent stridor Cardiovascular Cardiovascular exam: Present normal rhythm, tachycardia and other (2+ pulses throughout) Abdominal Exam Abdominal exam: Present soft; Absent distention or tenderness Extremities Exam Extremities exam: Present full ROM; Absent edema Neurological Exam Neurological exam: Present alert and oriented X3; Absent motor sensory deficit Psychiatric Psychiatric exam: Present normal affect and normal mood Skin Skin exam: Present warm and dry HEART Score HEART Score HEART Score assessment performed?: Yes History (anamnesis): Slightly suspicious ECG: Non-specific disturbance Age: 45-65 years Risk factors: 1-2 risk factors Troponin: </= normal limit HEART Score: 3 Critical Care Critical Care Time Critical Care Time: Yes Attestation: On 05/06/24, the high probability of a clinically significant, sudden or life threatening deterioration of the following system(s) (respiratory, cardiac) required my full and direct attention, intervention and personal management. The time I documented below is in addition to time spent performing reported procedures but includes the following listed in this critical care notation. Total Time Total Critical Care Time: 35 Medical Decision Making Medical Records Medical records reviewed: Yes I reviewed the patient's medical records. MR Comment: Patient's most recent follow-up with cardiology was in October 2022, at that time patient was started on daily aspirin and recommended an echo with follow-up in 2 weeks. It does not appear that he had 2-week follow-up after that appointment. Echocardiogram performed in October 2022 demonstrated biatrial enlargement, normal ventricle size, mild LVH, EF 55%. [place]yle Inquiry Pt receiving controlled substance: No Vital Signs Vital Signs: 05/06/24 05:34 05/06/24 05:53 Temperature 98.4 F Temperature Source Oral Pulse Rate 147 H Pulse Rate [Left Radial] 159 H Respiratory Rate 24 28 H Blood Pressure 158/96 H Blood Pressure [Right Arm] 152/101 H Blood Pressure Mean [Right Arm] 118 Blood Pressure Source [Right Arm] Automatic Cuff Blood Pressure Position [Right Arm] Sitting 02 Sat by Pulse Oximetry 89 L 95 Oxygen Delivery Method Nasal Cannula Oxygen Flow Rate (LPM) 5 Lab Data Labs: Lab Results 05/06/24 05:28: WBC 16.1 H, RBC 5.20, Hgb 15.5, Hct 50.4, MCV 96.8 H, MCH 29.8, MCHC 30.8 L, RDW 13.1, Plt Count 319, MPV 8.2, Neut % (Auto) 85.3 H, Lymph % (Auto) 8.6 L, [place] % (Auto) 5.3, Eos % (Auto) 0.2, Baso % (Auto) 0.6, Neut # (Auto) 13.7 H, Lymph # (Auto) 1.4, [place] # (Auto) 0.9, Eos # (Auto) 0.0, Baso # (Auto) 0.1, Total Counted 100, Neutrophils % (Manual) 79 H, Lymphocytes % (Manual) 19, Atypical Lymphs % 1.0, Monocytes % (Manual) 1 L, RBC Morphology Normal, PT 10.6, INR 0.94, Sodium 139, Potassium 4.1, Chloride 103, Carbon Dioxide 29, Anion Gap 11.1, BUN 11, Creatinine 0.90, Estimated Creat Clear 79, Estimated GFR 86, Est GFR ( Amer) 103, Glucose 136 H, Calcium 9.0, Total Bilirubin 0.9, AST 31, ALT 33, Alkaline Phosphatase 79, Troponin I < 0.01, NT-Pro-B Natriuret Pep 50.8, Total Protein 7.5, Albumin 4.3, Globulin 3.2, Albumin/Globulin Ratio 1.3, SARS-CoV-2 (PCR) Not detected, Influenza A Untype (PCR) Not detected, Influenza Type B (PCR) Not detected 05/06/24 05:46: VBG pH 7.26 L, VBG pCO2 56.9 H, VBG pO2 88.7 H, VBG HCO3 24.7, VBG Total CO2 26.4, VBG O2 Saturation 95.9 H, VBG Base Excess -2.5 L, VBG Lactic Acid 2.3 H 05/06/24 05:28 05/06/24 05:28 Response Orders (Tests/Meds): ED MEDICATIONS Generic Name Dose Route Start Last Admin Trade Name Larsq PRN Reason Stop Dose Admin Lactated Ringer's 2,200 mls @ 999 mls/hr 05/06/24 05:35 05/06/24 05:44 Lactated Ringer's 1000 Ml Bag IV 05/06/24 07:47 999 mls/hr .Q2H13M ONE Administration Vancomycin/PEG/NADA/Lysine/Water 1.5 gm in 300 mls @ 150 mls/hr 05/06/24 06:15 05/06/24 06:16 Vancomycin 1.5gm/300ml (Peg) Premix IV 05/06/24 08:14 150 mls/hr ONCE ONE Administration Miscellaneous 1 each 05/06/24 06:15 Vancomycin Consult Request NOTAPPLIC 06/05/24 06:14 CON[facility]ULT [facility]Y [facility] Discontinued Medications Generic Name Dose Route Start Last Admin Trade Name Fidel PRN Reason Stop Dose Admin Albuterol Sulfate 20 mg 05/06/24 05:43 05/06/24 05:50 Albuterol 0.083% 2.5 Mg/3 Ml [facility] 05/06/24 05:44 20 mg ONCE ONE Administration Albuterol/Ipratropium 9 ml 05/06/24 05:23 05/06/24 05:30 Ipratropium/Albuterol 3 Ml [facility] 05/06/24 05:24 9 ml ONCE ONE Administration Ceftriaxone Sodium 1 gm/ 50 mls @ 100 mls/hr 05/06/24 05:33 05/06/24 05:43 Sodium Chloride IV 05/06/24 06:02 100 mls/hr ONCE ONE Administration Azithromycin 500 mg/ Sodium 250 mls @ 250 mls/hr 05/06/24 06:06 05/06/24 06:09 Chloride IV 05/06/24 06:07 250 mls/hr ONCE ONE Administration ORDERS Category Date Time Status CXR --portable [XR chest portable] Stat Exams 05/06/24 05:31 Taken BNP [NT Pro Brain Natriuretic Pep.] Stat Lab 05/06/24 05:28 Completed Complete Blood Count Auto Diff Stat Lab 05/06/24 05:28 Completed Comprehensive Metabolic Panel Stat Lab 05/06/24 05:28 Completed Lactic Acid Stat Lab 05/06/24 05:35 Received Prothrombin Time INR Stat Lab 05/06/24 05:28 Completed Rapid PCR Covid and Flu A/B Stat Lab 05/06/24 05:28 Completed Troponin I Q3H Lab 05/06/24 05:28 Completed Troponin I Q3H Lab 05/06/24 08:30 Ordered Troponin I Q3H Lab 05/06/24 11:30 Ordered Urinalysis and Microscopic Stat Lab 05/06/24 06:06 Ordered Blood Culture Stat Micro 05/06/24 05:35 Received VBG [Venous Blood Gas] Stat RT 05/06/24 05:46 Completed MDM Narrative Medical Decision Narrative: In summary, this 64-year-old male presents to the emergency department today with difficulty breathing, cough, fevers up to 101 at home. Comorbidities of current condition include CAD, COPD which increase patient's overall morbidity as well as the amount of data to be reviewed. On initial evaluation patient is tachycardic but not hypotensive, tachypneic, obviously in respiratory distress with increased work of breathing, retractions, diminished breath sounds throughout with rhonchi, faint wheezing, hypoxic on nasal cannula at 5 L. Patient was immediately started on DuoNeb treatments and his oxygenation improved to the 90s during this treatment however when the treatment stopped, he was back up to the upper 80s on nasal cannula, continuous albuterol treatment ordered. Differential diagnosis includes but is not limited to COPD exacerbation, pneumonia, viral syndrome, ACS, elevated BNP, pleural effusion, patient meets sepsis criteria and was receiving 30mL/kg sepsis bolus as well as Rocephin initially for antibiotic treatment. Based on these concerns, I ordered serum labs, chest x-ray, viral swab, cardiac workup, VBG, urinalysis. ECG personally interpreted demonstrates sinus tachycardia, short NH but no findings of WPW, normal axis, rate 159, normal QTc, no STEMI. Azithromycin, vancomycin have also been ordered for the patient for broad-spectrum coverage. Labs personally reviewed demonstrate leukocytosis with WBC 16.1, no anemia, platelets normal, CMP nonactionable, no findings of kidney or liver dysfunction, initial troponin undetectably low at less than 0.01. VBG notable for pH 7.26, lactic 2.3. BNP normal. XR personally interpreted demonstrates right lower lobe appears to be developing an infiltrate, no obvious pneumothorax, see radiology read for final interpretation. Despite nebulizer treatments and improved oxygenation, patient continues having significant increased work of breathing and I am still concerned that patient is going to fatigue. Patient was transitioned to BiPAP. Patient's respiratory rate before he was started on BiPAP was 32-34, now that he is on BiPAP his respiratory rate has improved to the mid 20s. Patient's work of breathing is dramatically improved on BiPAP. He remains tachycardic however he has also received significant amount of beta agonists. Patient requires admission at this time for continued management of sepsis, COPD exacerbation, pneumonia, acute respiratory failure. Patient is in agreement. I discussed this case with the hospitalist including patient's current diagnoses, findings on labs, imaging, and current BiPAP settings. Patient accepted for admission.
[2024-05-06 05:37] LABS: Basophils # 0.1 K/mm3 (0-0.2); Basophils % 0.6 % (0.1-2.0); Eosinophils % 0.2 % (0.1-12.0); Hematocrit 50.4 % (42.0-52.0); Hemoglobin 15.5 g/dL (14.1-18.0); Lymphocytes # 1.4 K/mm3 (0.7-4.5); Lymphocytes % 8.6 % (10-50); Mean Corpuscular HGB Conc 30.8 g/dL (31.8-35.4); Mean Corpuscular Hemoglobin 29.8 pg (27.0-31.2); Mean Corpuscular Volume 96.8 fl (80-94); Mean Platelet Volume 8.2 fl (7.4-10.4); Monocytes # 0.9 K/mm3 (0.1-1.0); Monocytes % 5.3 % (1.7-9.3); Neutrophils # 13.7 K/mm3 (1.8-7.8); Neutrophils % 85.3 % (37.0-80.0); Platelet Count 319 K/mm3 (142-424); Red Cell Distribution Width 13.1 % (11.5-17.5); White Blood Count 16.1 K/mm3 (4.8-10.8)
[2024-05-06 05:39] LABS: MANUAL DIFFERENTIAL MANUAL DIFFERENTIAL (MANUAL DIFF)
[2024-05-06 05:43] LABS: Alanine Aminotransferase 33 U/L (12-78); Albumin Level 4.3 g/dl (3.5-5.0); Albumin/Globulin Ratio 1.3 (1.1-1.8); Alkaline Phosphatase 79 U/L (38-126); Anion Gap 11.1 mEq/L (5-15); Aspartate Amino Transferase 31 U/L (17-59); Bilirubin,Total 0.9 mg/dl (0.2-1.3); Blood Urea Nitrogen 11 mg/dl (9-20); Carbon Dioxide 29 mmol/L (22.0-30.0); Chloride 103 mmol/L (98-107); Creatinine Clearance Estimated 79 mL/min (50-200); Estimated Glomerular Filt Rate 86 ml/min (>60); GFR (African American) 103 ML/MIN (>60); Globulin 3.2 g/dL (1.3-3.2); Glucose 136 mg/dl (74-100); INR 0.94 (0.9-1.1); Potassium 4.1 mmoL/L (3.5-5.1); Prothrombin Time 10.6 seconds (10.1-12.5); Sodium 139 mmol/L (136-145); Total Protein,Serum 7.5 g/dl (6.3-8.2)
[2024-05-06] MEDS: CEFTRIAXONE SODIUM 1 GM in 0.9 % SODIUM CHLORIDE 50 ML IV (05:43)
[2024-05-06] MEDS: LACTATED RINGERS 1000ML 2,200 ML 999 ML IV (05:44)
[2024-05-06] MEDS: ALBUTEROL 0.083% 2.5 MG/3 ML NEB 20 MG IH (05:50)
[2024-05-06 05:52] LABS: NT Pro Brain Natriuretic Pep. 50.8 pg/mL (0-125)
[2024-05-06 05:54] LABS: VBG Base Excess -2.5 mmol/L (-2.4-2.3); VBG HCO3 24.7 mmol/L (23-30); VBG Oxygen Saturation 95.9 % (50-70); VBG PCO2 56.9 mmol/L (35-51); VBG PH 7.26 mmol/L (7.31-7.41); VBG PO2 88.7 mmol/L (28-40); VBG Total CO2 26.4 mmol/L (23-27)
[2024-05-06 05:56] LABS: Lactate Venous 2.3 mmol/L (0.4-2.0)
[2024-05-06 05:56] LABS: Troponin I < 0.01 ng/ml (0.00-0.034)
[2024-05-06 06:01] LABS: Lymphocytes % 19 % (10-50); Monocytes % 1 % (2-9); Neutrophils % 79 % (42-76); Total Cells Counted 100
--- NOTE | 2024-05-06 06:01 | PC.NURSE ---
Pt continues with labored breathing, decreased breath sounds with crackles and wheezes continue, use of accessory muscles, proved aware and going to bedside, Resp called to place pt on Bi-Pap
[2024-05-06 06:03] LABS: RBC Morphology Normal
--- NOTE | 2024-05-06 06:08 | PC.NURSE ---
Verified [facility] w/ [facility]
[2024-05-06] MEDS: AZITHROMYCIN 500 MG in 0.9 % SODIUM CHLORIDE 250 ML 250 MG IV (06:09)
[2024-05-06] MEDS: VANCOMYCIN/WATER FOR INJ (PEG) 1.5 GM/300 ML PIGGYBACK IV (06:16)
[2024-05-06 06:23] LABS: Lactic Acid 0.9 mmol/L (0.7-2.1)
--- NOTE | 2024-05-06 06:36 | PC.NURSE ---
Admitting notified for admission
--- NOTE | 2024-05-06 07:06 | PC.NURSE ---
report called to ang
--- NOTE | 2024-05-06 07:34 | PC.NURSE ---
arrived by stretcher from ed.
[2024-05-06 07:49] LABS: Adenovirus,PCR Not Detected (NotDetected); Bordetella Pertussis Not Detected (NotDetected); Chlamydophila Pneumoniae, PCR Not Detected (NotDetected); Coronavirus 19, PCR Not Detected (NotDetected); Coronavirus 229E Not Detected (NotDetected); Coronavirus NL63 Not Detected (NotDetected); Coronavirus OC43 Not Detected (NotDetected); Coronovirus HKU1,PCR Not Detected (NotDetected); Human Metapneumovirus Not Detected (NotDetected); Influenza A, PCR Not Detected (NotDetected); Influenza AH1, 2009 Not Detected (NotDetected); Influenza AH1, PCR Not Detected (NotDetected); Influenza AH3,PCR Not Detected (NotDetected); Influenza B, PCR Not Detected (NotDetected); Mycoplasma Pneumoniae, PCR Not Detected (NotDetected); Parainfluenza 1, PCR Not Detected (NotDetected); Parainfluenza 2, PCR Not Detected (NotDetected); Parainfluenza 3, PCR Not Detected (NotDetected); Parainfluenza 4, PCR Not Detected (NotDetected); Respiratory Syncytial Virus Not Detected (NotDetected); Rhinovirus/Enterovirus Not Detected (NotDetected)
[2024-05-06 09:13] LABS: Troponin I 0.02 ng/ml (0.00-0.034)
--- NOTE | 2024-05-06 09:35 | EXP.PULM.CON ---
History of Present Illness History of present illness: Mr. Min is a 64-year-old male greater than [id number] smoking history, severe COPD, not on any oxygen supplementation at baseline except for exertion, history of lung resection presented to the ER with worsening respiratory distress and pulmonary was called for further evaluation and management. Patient admits gradually worsening respiratory status for the last 5 to 7 days followed by worsening cough wheezing and productive phlegm. Denies any subjective fevers or chills. [facility] Disclaimer: The information contained in this section may have been updated after the patient was seen, as this information can be updated by other users. Medical History Lumbar radicular pain This is not really a major complaint of this patient currently. His major issue is his breathing. Coronary artery disease Patient has had stents placed. He is following with cardiology currently. He has no chest pain complaints at this time. Abnormal electrocardiogram [ECG] [EKG] Hypoxemic respiratory failure, chronic COPD (chronic obstructive pulmonary disease) Patient has severe COPD. Patient has been seen by pulmonary and Dr. Becerra. Today his lungs have quite a bit of wheezes as well as rales and occasional rhonchi. They sound inflamed and irritated. Will give him an injection of dexamethasone as well as a prednisone burst and taper. Will see him back in about 2 weeks. Additionally this patient is new to me. I was only given 15 minutes so was unable to do a complete evaluation. 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 Surgical History S/P coronary artery stent placement History of surgery on upper extremity History of lung surgery Family History Other COPD (chronic obstructive pulmonary disease) Diabetes Heart attack Hypertension Social History (Updated 05/06/24 @ 08:56 by Jelly Orozco RN) Smoking Status: Former smoker smoking status stop date: October 2023 second hand exposure: Yes alcohol intake: never substance use type: denies use current occupational status: employed Travel in the last 8 weeks: None household members: significant other housing: house 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 current occupational exposures/hazards: Yes Review of Systems Constitutional Constitutional: Reports anorexia, Reports body ache(s), Reports fatigue and Reports lethargy Eyes Eyes: Denies eye discharge, Denies dry eyes, Denies irritation and Denies itchy eyes ENT Ears, Nose, Mouth, and Throat: Denies epistaxis, Denies facial pain, Denies lip swelling and Denies throat swelling *Cardiovascular Cardiovascular: Reports dyspnea and Reports dyspnea on exertion *Respiratory Respiratory: Denies change in phlegm color, Reports chest congestion, Reports cough, Reports dyspnea, Reports dyspnea on exertion, Reports excessive phlegm production and Reports wheezing *Gastrointestinal Gastrointestinal: Denies abdominal pain, Denies belching and Denies cramping *Musculoskeletal Musculoskeletal: Reports back pain and Reports myalgias Psychiatric Psychiatric: Denies homicidal ideation and Denies suicidal ideation Endocrine Endocrine: Reports fatigue and Denies heat intolerance Hematologic/Lymphatic Hematologic/Lymphatic: Denies easy bleeding and Denies lymphadenopathy Allergic/Immunologic Allergic/Immunologic: Denies itchy eyes, Denies lip swelling, Denies throat swelling and Reports wheezing Pulmonology Exam Inpatient Vital signs and Labs for Last 24 Hours: Temp Pulse Resp BP Pulse Ox O2 Del Method O2 Flow Rate 98.4 F 129 H 28 H 137/88 99 Nasal Cannula 2 05/06/24 07:47 05/06/24 07:47 05/06/24 07:47 05/06/24 07:47 05/06/24 07:47 05/06/24 09:00 05/06/24 09:00 FiO2 40 05/06/24 07:02 Laboratory Results - last 24 hr 05/06/24 05:28: WBC 16.1 H, RBC 5.20, Hgb 15.5, Hct 50.4, MCV 96.8 H, MCH 29.8, MCHC 30.8 L, RDW 13.1, Plt Count 319, MPV 8.2, Neut % (Auto) 85.3 H, Lymph % (Auto) 8.6 L, [place] % (Auto) 5.3, Eos % (Auto) 0.2, Baso % (Auto) 0.6, Neut # (Auto) 13.7 H, Lymph # (Auto) 1.4, [place] # (Auto) 0.9, Eos # (Auto) 0.0, Baso # (Auto) 0.1, Total Counted 100, Neutrophils % (Manual) 79 H, Lymphocytes % (Manual) 19, Atypical Lymphs % 1.0, Monocytes % (Manual) 1 L, RBC Morphology Normal, PT 10.6, INR 0.94, Sodium 139, Potassium 4.1, Chloride 103, Carbon Dioxide 29, Anion Gap 11.1, BUN 11, Creatinine 0.90, Estimated Creat Clear 79, Estimated GFR 86, Est GFR ( Amer) 103, Glucose 136 H, Calcium 9.0, Total Bilirubin 0.9, AST 31, ALT 33, Alkaline Phosphatase 79, Troponin I < 0.01, NT-Pro-B Natriuret Pep 50.8, Total Protein 7.5, Albumin 4.3, Globulin 3.2, Albumin/Globulin Ratio 1.3, SARS-CoV-2 (PCR) Not detected, Influenza A Untype (PCR) Not detected, Influenza Type B (PCR) Not detected 05/06/24 05:35: Lactate 0.9 05/06/24 05:46: VBG pH 7.26 L, VBG pCO2 56.9 H, VBG pO2 88.7 H, VBG HCO3 24.7, VBG Total CO2 26.4, VBG O2 Saturation 95.9 H, VBG Base Excess -2.5 L, VBG Lactic Acid 2.3 H 05/06/24 07:45: Chlamy pneumoniae PCR Not detected, Adenovirus (PCR) Not detected, B. pertussis DNA (PCR) Not detected, Coronavirus OC43 (PCR) Not detected, Coronavirus HKU1 (PCR) Not detected, Coronavirus 229E (PCR) Not detected, SARS-CoV-2 (PCR) Not detected, Coronavirus NL63 (PCR) Not detected, Human Metapneumovir PCR Not detected, Influenza A (H1) PCR Not detected, Influ A (H1N1/09) PCR Not detected, Influenza A (H3) PCR Not detected, Influenza Type A (PCR) Not detected, Influenza Type B (PCR) Not detected, M. pneumoniae (PCR) Not detected, Parainfluenza 1 (PCR) Not detected, Parainfluenza 2 (PCR) Not detected, Parainfluenza 3 (PCR) Not detected, Parainfluenza 4 (PCR) Not detected, RSV (PCR) Not detected, Entero/Rhino (PCR) Not detected 05/06/24 08:37: Troponin I 0.02 I & O for Labs for Last 24 Hours: Intake & Output 05/03/24 05/04/24 05/05/2405/06/24 23:59 23:59 23:59 23:59 Output Total 750 / 750 Balance -750 / -750 Weight 157 lb 9.6 oz Constitutional: Present moderate distress Head: Present normocephalic and atraumatic ENT: Present normal exam, normal oropharynx and mucous membranes moist Neck: Present normal inspection and full ROM Respiratory: Present prolonged expiratory phase, respiratory distress, crackles, diminished air movement and able to speak in complete sentences Cardiac: Present S1/S2, Tachycardia and radial pulses present GI: Present soft and distention; Absent tenderness or guarding Skin: Present intact; Absent cyanosis or jaundice Neuro: Present alert, awake and oriented x 3 Extremities: Present normal inspection; Absent clubbing or cyanosis Psychiatric: Present normal affect and cooperative Meds Home Medications and Allergies Home Medications ?Medication ?Instructions ?Recorded ?Confirmed ?Type tadalafil 10 mg tablet 10 mg PO DAILY PRN sexual activity 01/04/24 05/06/24 Rx #30 tabs Ventolin HFA 90 mcg/actuation 1 inh inhalation QID #8 grams 03/23/24 05/06/24 Rx aerosol inhaler (albuterol sulfate) fluticasone fur. 100 mcg-umeclid 1 inh inhalation DAILY #28 ea 04/18/24 05/06/24 Rx 62.5 mcg-vilant 25 mcg inhalat.powder (Trelegy Ellipta) ipratropium 0.5 mg-albuterol 3 mg 3 ml inhalation Q4-6H PRN 04/18/24 05/06/24 Rx (2.5 mg base)/3 mL nebulization shortness of breath or wheezing soln #180 mL tamsulosin 0.4 mg capsule 0.4 mg PO HS 05/06/24 05/06/24 History New Prescriptions to Start Prescriptions: Allergies Allergy/AdvReac Type Severity Reaction Status Date / Time umeclidinium Allergy Mild Verified 02/24/24 10:34 [From Anoro Ellipta] Results Laboratory Findings 05/06/24 05:28 05/06/24 05:28 PT/INR, D-dimer PT 10.6 seconds (10.1-12.5) 05/06/24 05:28 INR 0.94 (0.9-1.1) 05/06/24 05:28 Abnormal lab findings: Abnormal Labs 05/06/24 05/06/24 05:28 05:46 WBC 16.1 H MCV 96.8 H MCHC 30.8 L Neut % (Auto) 85.3 H Lymph % (Auto) 8.6 L Neut # (Auto) 13.7 H Neutrophils % (Manual) 79 H Monocytes % (Manual) 1 L VBG pH 7.26 L VBG pCO2 56.9 H VBG pO2 88.7 H VBG O2 Saturation 95.9 H VBG Base Excess -2.5 L VBG Lactic Acid 2.3 H Glucose 136 H Assessment and Plan *Assessment and plan (1) Acute exacerbation of chronic obstructive pulmonary disease: Status: Acute Category: Medical Code(s): J44.1 - Chronic obstructive pulmonary disease with (acute) exacerbation (2) Acute on chronic hypoxic respiratory failure: Status: Acute Category: Medical Code(s): J96.21 - Acute and chronic respiratory failure with hypoxia (3) Pneumonia: Status: Acute Qualifiers: Pneumonia type: due to unspecified organism Laterality: right Lung location: lower lobe of lung Qualified Code(s): J18.9 - Pneumonia, unspecified organism Category: Medical Code(s): J18.9 - Pneumonia, unspecified organism Plan Mr. Min is a 64-year-old male greater than [id number] smoking history, severe COPD, not on any oxygen supplementation at baseline except for exertion, history of lung resection presented to the ER with worsening respiratory distress and pulmonary was called for further evaluation and management. Patient admits gradually worsening respiratory status for the last 5 to 7 days followed by worsening cough wheezing and productive phlegm. Denies any subjective fevers or chills. Afebrile. Hemodynamically stable. Neutrophilic predominant leukocytosis. COVID-19 and flu PCR negative. X-ray upon admission no acute/dense consolidative changes noted. Concern for right lower lobe patchy infiltrate. Auscultation bilateral decreased breath sounds. No significant wheezing noted. Received 10 doses of nebulizations this morning. Plan: DuoNebs every 4 hours along with Pulmicort every 12 scheduled Prednisone 40 mg daily for a total of 5 days Continue oxygen supplementation to maintain O2 saturation goal of 89% and above. Weaned to 1 L this morning we will continue to wean as tolerated. Continue ceftriaxone azithromycin pending culture results, antibiotics can be weaned to cefdinir upon discharge to complete a total of 5-day course # Thank you for involving pulmonary in this patient care. Will continue to follow.
[2024-05-06 09:56] LABS: Reflex Lactic Add Lactic Reflex
[2024-05-06 09:58] LABS: VBG Base Excess -4.3 mmol/L (-2.4-2.3); VBG HCO3 21.9 mmol/L (23-30); VBG Oxygen Saturation 91.7 % (50-70); VBG PCO2 44.8 mmol/L (35-51); VBG PH 7.31 mmol/L (7.31-7.41); VBG PO2 55.8 mmol/L (28-40); VBG Total CO2 23.3 mmol/L (23-27)
[2024-05-06 09:59] LABS: Lactate Venous 3.4 mmol/L (0.4-2.0)
[2024-05-06 10:27] LABS: Lactic Acid Follow Up (RFLX 1) 4.3 mmol/L (0.7-2.1)
--- NOTE | 2024-05-06 12:07 | P.HP_ITS ---
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 He states symptoms began 3 days and became progressively worse into today at which point he called EMS. He states fevers have been up to 100F. He denies chest pain during this period, however does endorse chest tightness this morning which he attributes to coughing. He also states his cough has turned productive this morning after breathing treatments in the hospital. He states he has not been that adherent to using his Trelegy inhaler for COPD, but has attempted to use it over the past 3 days. He has also been using his rescue inhaler more over the past days. He was saturating mid 80s with 2 L O2 home oxygen upon EMS arrival. He denies sick contacts, upper respiratory symptoms, abdominal pain, urinary symptoms, constipation/diarrhea. En route, EMS administered 1 DuoNeb and Solu-Medrol 125 mg, and attempted CPAP but patient only briefly tolerated it. In the ED, initial vitals showed HR 159, RR, 24, saturating 89% on 5 L nasal cannula, BP 152/101. He was placed on BiPAP with improvement in saturations and work of breathing. VBG pCO2 56.9, pO2 88.7, pH 7.26. WBC 16.1. CMP, respiratory panel unremarkable. CXR suggestive of RLL/RML opacities. Patient was administered DuoNeb, albuterol, vancomycin, ceftriaxone, azithromycin, and 1L LR bolus. Patient will be admitted to hospital medicine service for meeting sepsis criteria with likely community- acquired pneumonia, and acute COPD exacerbation with new oxygen requirement. [facility] Disclaimer: The information contained in this section may have been updated after the [facility] ient was seen, as this information can be updated by other users. Medical History Lumbar radicular pain This is not really a major complaint of this patient currently. His major issue is his breathing. Coronary artery disease Patient has had stents placed. He is following with cardiology currently. Aaliyah guevara has no chest pain complaints at this time. Abnormal electrocardiogram [ECG] [EKG] Hypoxemic respiratory failure, chronic COPD (chronic obstructive pulmonary disease) Patient has severe COPD. Patient has been seen by pulmonary and Dr. Becerra. Today his lungs have quite a bit of wheezes as well as rales and occasional rhonchi. They sound inflamed and irritated. Will give him an injection of dexamethasone as well as a prednisone burst and taper. Will see him back in about 2 weeks. Additionally this patient is new to me. I was only given 15 minutes so was unable to do a complete evaluation. 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 Surgical History S/P coronary artery stent placement History of surgery on upper extremity History of lung surgery Family History Other COPD (chronic obstructive pulmonary disease) Diabetes Heart attack Hypertension Social History (Updated 05/06/24 @ 08:56 by Jelly Orozco RN) Smoking Status: Former smoker smoking status stop date: October 2023 second hand exposure: Yes alcohol intake: never substance use type: denies use current occupational status: employed Travel in the last 8 weeks: None household members: significant other housing: house 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 Meds Home Medications and Allergies Home Medications ?Medication ?Instructions ?Recorded ?Confirmed ?Type tadalafil 10 mg tablet 10 mg PO DAILY PRN sexual activity 01/04/24 05/06/24 Rx #30 tabs Ventolin HFA 90 mcg/actuation 1 inh inhalation QID #8 grams 03/23/24 05/06/24 Rx aerosol inhaler (albuterol sulfate) fluticasone fur. 100 mcg-umeclid 1 inh inhalation DAILY #28 ea 04/18/24 05/06/24 Rx 62.5 mcg-vilant 25 mcg inhalat.powder (Trelegy Ellipta) ipratropium 0.5 mg-albuterol 3 mg 3 ml inhalation Q4-6H PRN 04/18/24 05/06/24 Rx (2.5 mg base)/3 mL nebulization shortness of breath or wheezing soln #180 mL tamsulosin 0.4 mg capsule 0.4 mg PO HS 05/06/24 05/06/24 History New Prescriptions to Start Prescriptions: Allergies Allergy/AdvReac Type Severity Reaction Status Date / Time umeclidinium Allergy Mild Verified 02/24/24 10:34 [From Anoro [place]] Exam Data for Last 24 hours Vital signs and Labs for Last 24 Hours: Temp Pulse Resp BP Pulse Ox O2 Del Method O2 Flow Rate 98.4 F 107 H 18 115/75 94 L Nasal Cannula 3 05/06/24 07:47 05/06/24 10:00 05/06/24 10:00 05/06/24 10:00 05/06/24 10:00 05/06/24 11:00 05/06/24 11:00 FiO2 40 05/06/24 07:02 Laboratory Results - last 24 hr 05/06/24 05:28: WBC 16.1 H, RBC 5.20, Hgb 15.5, Hct 50.4, MCV 96.8 H, MCH 29.8, MCHC 30.8 L, RDW 13.1, Plt Count 319, MPV 8.2, Neut % (Auto) 85.3 H, Lymph % (Auto) 8.6 L, [place] % (Auto) 5.3, Eos % (Auto) 0.2, Baso % (Auto) 0.6, Neut # (Auto) 13.7 H, Lymph # (Auto) 1.4, [place] # (Auto) 0.9, Eos # (Auto) 0.0, Baso # (Auto) 0.1, Total Counted 100, Neutrophils % (Manual) 79 H, Lymphocytes % (Manual) 19, Atypical Lymphs % 1.0, Monocytes % (Manual) 1 L, RBC Morphology Normal, PT 10.6, INR 0.94, Sodium 139, Potassium 4.1, Chloride 103, Carbon Dioxide 29, Anion Gap 11.1, BUN 11, Creatinine 0.90, Estimated Creat Clear 79, Estimated GFR 86, Est GFR ( Amer) 103, Glucose 136 H, Calcium 9.0, Total Bilirubin 0.9, AST 31, ALT 33, Alkaline Phosphatase 79, Troponin I < 0.01, NT-Pro-B Natriuret Pep 50.8, Total Protein 7.5, Albumin 4.3, Globulin 3.2, Albumin/Globulin Ratio 1.3, SARS-CoV-2 (PCR) Not detected, Influenza A Untype (PCR) Not detected, Influenza Type B (PCR) Not detected 05/06/24 05:35: Lactate 0.9 05/06/24 05:46: VBG pH 7.26 L, VBG pCO2 56.9 H, VBG pO2 88.7 H, VBG HCO3 24.7, VBG Total CO2 26.4, VBG O2 Saturation 95.9 H, VBG Base Excess -2.5 L, VBG Lactic Acid 2.3 H 05/06/24 07:45: Chlamy pneumoniae PCR Not detected, Adenovirus (PCR) Not detected, B. pertussis DNA (PCR) Not detected, Coronavirus OC43 (PCR) Not detected, Coronavirus HKU1 (PCR) Not detected, Coronavirus 229E (PCR) Not detected, SARS-CoV-2 (PCR) Not detected, Coronavirus NL63 (PCR) Not detected, Human Metapneumovir PCR Not detected, Influenza A (H1) PCR Not detected, Influ A (H1N1/09) PCR Not detected, Influenza A (H3) PCR Not detected, Influenza Type A (PCR) Not detected, Influenza Type B (PCR) Not detected, M. pneumoniae (PCR) Not detected, Parainfluenza 1 (PCR) Not detected, Parainfluenza 2 (PCR) Not detected, Parainfluenza 3 (PCR) Not detected, Parainfluenza 4 (PCR) Not detected, RSV (PCR) Not detected, Entero/Rhino (PCR) Not detected 05/06/24 08:37: Troponin I 0.02 05/06/24 09:20: VBG pH 7.31, VBG pCO2 44.8, VBG pO2 55.8 H, VBG HCO3 21.9 L, VBG Total CO2 23.3, VBG O2 Saturation 91.7 H, VBG Base Excess -4.3 L, VBG Lactic Acid 3.4 H 05/06/24 10:08: Lactate 4.3 H I & O for Last 24 hours: Intake & Output 05/03/24 05/04/24 05/05/24 05/06/24 23:59 23:59 23:59 23:59 Intake Total 100 / 100 Output Total 750 / 750 Balance -650 / -650 Weight 71.486 kg Constitutional Constitutional: no acute distress and cooperative *Routine HEENT Exam Head: Present normocephalic and atraumatic Eye: Present EOMI; Absent conjunctival icterus, scleral injection or nystagmus ENT: Present nares patent and external ear normal *Routine Respiratory Exam Respiratory: Present decreased breath sounds, prolonged expiratory phase, wheezes (Mild expiratory wheezing) and diminished air movement; Absent rhonchi, stridor or crackles *Routine Cardiovascular Exam Cardiovascular: Present tachycardia; Absent irregular rhythm or irregularly irregular *Routine Abdominal Exam Abdominal: Present soft; Absent tenderness, distended, rebound or guarding *Routine Rectal Exam Rectal:: deferred *Routine Genitalia Exam Genitalia:: deferred *Routine Neurological Exam Neurological: Present alert and oriented X3 Assessment and Plan *Assessment and plan (1) Pneumonia: Status: Acute Qualifiers: Laterality: right Lung location: lower lobe of lung Pneumonia type: due to unspecified organism Qualified Code(s): J18.9 - Pneumonia, unspecified organism Category: Medical Code(s): J18.9 - Pneumonia, unspecified organism (2) Sepsis: Status: Acute Category: Medical Code(s): A41.9 - Sepsis, unspecified organism (3) Acute exacerbation of chronic obstructive pulmonary disease: Status: Acute Category: Medical Code(s): J44.1 - Chronic obstructive pulmonary disease with (acute) exacerbation (4) Acute on chronic respiratory failure with hypoxia and hypercapnia: Status: Acute Category: Medical Code(s): J96.21 - Acute and chronic respiratory failure with hypoxia; J96.22 - Acute and chronic respiratory failure with hypercapnia (5) S/P coronary artery stent placement: Status: Acute Category: Surgical Code(s): Z95.5 - Presence of coronary angioplasty implant and graft (6) Panlobular emphysema: Status: Chronic Category: Medical Code(s): J43.1 - Panlobular emphysema Plan Cali Min is a 64-year-old male with a medical history significant for severe COPD (2L O2 with exertion), CAD (s/p ASPEN 10/2018), former 30 pack-year smoker (quit October 2023), pulmonary nodules (1.6-1.8cm 10/2023, following pulmonology), 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 Case was discussed with the ED attending and decision was made to admit patient for acute on chronic hypoxic, hypercapnic respiratory failure 2/2 acute COPD exacerbation and sepsis with likely underlying right lung community-acquired pneumonia. #Acute on chronic hypoxic, hypercapnic respiratory failure #Acute COPD exacerbation ? Patient presented with worsening shortness of breath, cough, reported fevers up to 101 Fahrenheit at home. ? Found to be saturating in the 80s with 2 L home oxygen upon EMS arrival. Did not tolerate CPAP on route, arrived saturating 89% on 5 L nasal cannula with significant increased work of breathing and placed on BiPAP with improvement in O2 saturations and work of breathing. Patient received 1 DuoNeb and Solu-Medrol 125 mg on route. ? Initial VBG revealed hypercapnia 56.9 and respiratory acidosis pH 7.26. Follow-up VBG shows resolved hypercapnia. CMP, respiratory panel unremarkable. ? CXR suggestive of RLL/RML opacities and independent review confirms this which can be correlated with CAP, see below. ? Weaned off BiPAP, currently on 2 L O2 via nasal cannula. ? Exam reveals decreased air movement bilateral lung self, minimal wheezing. Continues to have increased work of breathing ? Triggers likely CAP and reported medication nonadherence with Trelegy. Patient quit smoking in October 2023. Plan: ? DuoNebs every 4 RT, Pulmicort twice daily. ? Prednisone 40 mg day 08/28. ? Ceftriaxone, azithromycin for CAP coverage, see below. ? Continue to wean oxygen to room air (2L with exertion baseline) as tolerated. ? Pulmonology following, appreciate recommendations. ? Patient has had at least 2 other COPD exacerbations this year. Will benefit from pulmonary rehab on discharge. Can also consider maintenance azithromycin or Roflumilast upon outpatient follow-up with pulmonology. Will also need medication adherence education before discharge. - Anticipate discharge in 1-2 days pending clinical improvement. Patient follows with [facility] room service Dr. Becerra. #Sepsis #RML/RLL community-acquired pneumonia (CAP) ? Met sepsis criteria with tachycardia, leukocytosis upon admission. Otherwise hemodynamically stable at this time. ? CXR suggestive of RML/RLL opacities which clinically correlates with CAP with SOB, cough, reported fevers at home. ? Weaned off BiPAP to 2L nasal cannula, see above. ? PSI risk class III. Plan: ? Ceftriaxone, azithromycin day 08/28. ? Ordered additional 1 L bolus to complete sepsis bolus, received 1 L in the ED. ? Follow-up blood, sputum cultures. Narrow antibiotics as appropriate. ? Follow-up MRSA PCR. ? Continue to wean oxygen to room air as tolerated. ? Pulmonology following, appreciate recommendations. #Lactic acidosis ? Likely secondary to sepsis, dehydration. ? Lactic acid improved from 4.3-3.0 after 1 L fluid bolus. ? Ordered another 1 L fluid bolus. ? Continue to monitor lactic acid level. Chronic problems: #CAD s/p ASPEN 10/2018 ? Patient has nonadherent with cardiology follow-ups and cardiac medications. ? Started aspirin 81 mg, atorvastatin 40 mg. #Pulmonary nodules ? At least 3 known nodules in bilateral lungs, measuring 1.6-1.8cm 10/2023. ? PET/CT 11/06/2023 did not show significant FGD uptake. ? Follows outpatient pulmonology, last seen by Dr. Becerra in February 2024. Plan for 6-month follow-up CT chest scheduled for July 2024. CODE STATUS: DNR Diet: Cardiac DVT prophylaxis: Lovenox 40 mg
[2024-05-06 12:10] LABS: Troponin I 0.03 ng/ml (0.00-0.034)
[2024-05-06 12:14] LABS: Reflex Lactic (2 hrs) Add Lactic Reflex
[2024-05-06] MEDS: IPRATROPIUM/ALBUTEROL 3 ML NEB IH ×3 (12:57→22:00)
[2024-05-06] MEDS: predniSONE 20MG TAB 40 MG PO (14:11)
[2024-05-06] MEDS: 0.9 % SODIUM CHLORIDE 1000ML 1,000 ML 500 ML IV (14:11)
[2024-05-06] MEDS: ENOXAPARIN 40MG/0.4ML SYRINGE 40 MG SQ (16:04)
--- NOTE | 2024-05-06 18:21 | PC.NURSE ---
pt currently resting with family at bedside. vss. pt has not complained of any pain this shift. pt has been on 2l nc and has tolerated well with sats 94-96%. urine output has been adequate- see i&o. no complaints at this time. call light within reach
[2024-05-06] MEDS: BUDESONIDE 0.5MG/2ML NEB 0.5 MG IH (18:45)
[2024-05-06 19:31] LABS: Lactic Acid 2.6 mmol/L (0.7-2.1)
[2024-05-06] MEDS: TAMSULOSIN 0.4MG CAPSULE 0.4 MG PO (20:15)
[2024-05-06 23:17] LABS: Reflex Lactic Add Lactic Reflex
[2024-05-06 23:55] LABS: Lactic Acid Follow Up (RFLX 1) 2.3 mmol/L (0.7-2.1)
[2024-05-07] VITALS: BP 116/68; PULSE 80; PULSE 91; RESP 16; TEMP 36.8; O2SAT 95
[2024-05-07 01:39] LABS: Reflex Lactic (2 hrs) Add Lactic Reflex
[2024-05-07 02:52] LABS: Lactic Acid Follow up (RFLX 2) 1.2 mmol/L (0.7-2.1)
[2024-05-07 04:00] VITALS: BP 126/64; PULSE 60; PULSE 79; RESP 16; TEMP 36.3; O2SAT 96; BMI 23.6
[2024-05-07] MEDS: CEFTRIAXONE SODIUM 1 GM in 0.9 % SODIUM CHLORIDE 50 ML IV (05:02)
[2024-05-07 06:13] VITALS: PULSE 79; PULSE 82; O2SAT 95
[2024-05-07] MEDS: BUDESONIDE 0.5MG/2ML NEB 0.5 MG IH (06:13)
[2024-05-07] MEDS: IPRATROPIUM/ALBUTEROL 3 ML NEB IH ×2 (06:13→12:25)
[2024-05-07] MEDS: AZITHROMYCIN 500 MG in 0.9 % SODIUM CHLORIDE 250 ML 250 MG IV (06:38)
--- NOTE | 2024-05-07 06:55 | PC.NURSE ---
Pt is A&OX4. He has remained on 2L O2 the majority of the shift and was just lowered to 1L. Expiratory rhonchi heard throughout lungs and bowel sounds active in all quadrants. Pt has denied any pain and has no complaints at this time. He is currently to the chair with call light within reach.
[2024-05-07 08:00] VITALS: BP 104/70; PULSE 105; PULSE 75; RESP 18; TEMP 36.6; O2SAT 94
[2024-05-07] MEDS: ENOXAPARIN 40MG/0.4ML SYRINGE 40 MG SQ (08:09)
[2024-05-07] MEDS: predniSONE 20MG TAB 40 MG PO (08:09)
[2024-05-07] MEDS: ASPIRIN EC 81MG TABLET 81 MG PO (08:09)
--- NOTE | 2024-05-07 11:46 | EXP.DC.SUM ---
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 He states symptoms began 3 days and became progressively worse into today at which point he called EMS. He states fevers have been up to 100F. He denies chest pain during this period, however does endorse chest tightness this morning which he attributes to coughing. He also states his cough has turned productive this morning after breathing treatments in the hospital. He states he has not been that adherent to using his Trelegy inhaler for COPD, but has attempted to use it over the past 3 days. He has also been using his rescue inhaler more over the past days. He was saturating mid 80s with 2 L O2 home oxygen upon EMS arrival. He denies sick contacts, upper respiratory symptoms, abdominal pain, urinary symptoms, constipation/diarrhea. En route, EMS administered 1 DuoNeb and Solu-Medrol 125 mg, and attempted CPAP but patient only briefly tolerated it. In the ED, initial vitals showed HR 159, RR, 24, saturating 89% on 5 L nasal cannula, BP 152/101. He was placed on BiPAP with improvement in saturations and work of breathing. VBG pCO2 56.9, pO2 88.7, pH 7.26. WBC 16.1. CMP, respiratory panel unremarkable. CXR suggestive of RLL/RML opacities. Patient was administered DuoNeb, albuterol, vancomycin, ceftriaxone, azithromycin, and 1L LR bolus. Patient will be admitted to hospital medicine service for meeting sepsis criteria with likely community-acquired pneumonia, and acute COPD exacerbation with new oxygen requirement. 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 Case was discussed with the ED attending and decision was made to admit patient for acute on chronic hypoxic, hypercapnic respiratory failure 2/2 acute COPD exacerbation and sepsis with likely underlying right lung community-acquired pneumonia. #Acute on chronic hypoxic, hypercapnic respiratory failure #Acute COPD exacerbation ? Improved with DuoNebs, Pulmicort breathing treatments and steroids. ? Continues to require 3 L supplemental O2 via nasal cannula (baseline 2 L with exertion). Patient had appropriate saturations on walk test today. ? Patient states his respiratory status has improved since yesterday and feels he is able to go home. He has a significant other who can take care of him at home. ? Patient is medically stable to be discharged home with close follow-up with PCP. ? Discharged on 3 L continuous supplemental O2 via nasal cannula. Will follow-up with PCP for further recommendations within 1 week. ? Prescribed prednisone for 3 more days. Education on medication adherence ? Patient has had at least 2 other COPD exacerbations this year. Can consider maintenance azithromycin or Roflumilast upon outpatient follow-up with pulmonology. #Sepsis, resolved #RML/RLL community-acquired pneumonia (CAP) ? Respiratory status improved with ceftriaxone, azithromycin, and supplemental oxygen. ? Discharged with cefdinir for 3 more days for total of 5-day coverage. ? Will wean supplemental O2 with PCP, se #Pulmonary nodules ? At least 3 known nodules in bilateral lungs, measuring 1.6-1.8cm 10/2023. ? PET/CT 11/06/2023 did not show significant FGD uptake. ? Follows outpatient pulmonology, last seen by Dr. Becerra in February 2024. Plan for 6-month follow-up CT chest scheduled for July 2024. #CAD s/p ASPEN 10/2018 ? Restarted aspirin 81 mg, atorvastatin 40 mg. Exam Data for Last 24 hours Vital signs and Labs for Last 24 Hours: Temp Pulse Resp BP Pulse Ox O2 Del Method O2 Flow Rate 97.9 F 75 18 104/70 L 94 L Nasal Cannula 1 09/14/24 08:00 05/07/24 08:00 05/07/24 08:00 05/07/24 08:00 05/07/24 08:00 05/07/24 11:00 05/07/24 11:00 FiO2 40 05/06/24 07:02 Laboratory Results - last 24 hr 05/06/24 11:39: Troponin I 0.03 05/06/24 12:28: Lactate 3.0 H 05/06/24 19:15: Lactate 2.6 H 05/06/24 23:30: Lactate 2.3 H 05/07/24 02:38: Lactate 1.2 Temp Pulse Resp BP Pulse Ox 97.9 F 69 17 135/68 96 07/10/22 04:00 07/10/22 06:09 07/10/22 04:00 07/10/22 04:00 07/10/22 06:09 Laboratory Results - last 24 hr 07/09/22 11:12: WBC 6.1, RBC 4.89, Hgb 15.3, Hct 46.3, MCV 94.6 H, MCH 31.2, MCHC 33.0, RDW 13.3, Plt Count 249, MPV 8.3, Neut % (Auto) 83.8 H, Lymph % (Auto) 8.1 L, [place] % (Auto) 7.0, Eos % (Auto) 0.1, Baso % (Auto) 0.9, Neut # (Auto) 5.1, Lymph # (Auto) 0.5 L, [place] # (Auto) 0.4, Eos # (Auto) 0.0, Baso # (Auto) 0.1 07/09/22 11:12: Sodium 137, Potassium 3.8, Chloride 96 L, Carbon Dioxide 31 H, Anion Gap 13.8, BUN 9, Creatinine 0.80, Estimated Creat Clear 82, Estimated GFR 99, Est GFR ( Amer) 119, Glucose 117 H, Calcium 8.6, Troponin I < 0.01 07/09/22 11:12: SARS-CoV-2 (PCR) Not detected, Influenza A Untype (PCR) Detected A, Influenza Type B (PCR) Not detected I & O for Last 24 hours: Intake & Output 05/04/24 05/05/24 05/06/24 09/14/24 23:59 23:59 23:59 23:59 Intake Total 680 / 680 900 / 900 Output Total 1700 / 1900 500 / 500 Balance -1020 / -1220 400 / 400 Weight 71.486 kg 72.178 kg Intake & Output 07/07/22 07/08/22 07/09/22 07/10/22 23:59 23:59 23:59 23:59 Intake Total 240 / 240 748 / 748 Output Total 250 / 250 Balance -10 / -10 748 / 748 Weight 61.887 kg 59.92 kg Microbiology Reports for the Last 24 Hours: Microbiology 05/06/24 05:35 Blood Blood Culture - Preliminary NO GROWTH AFTER 24 HOURS 05/06/24 05:35 Blood Blood Culture - Preliminary NO GROWTH AFTER 24 HOURS 05/06/24 09:56 Sputum - Expectorated Sputum Gram Stain - Final Constitutional Constitutional: mild distress, thin and chronically ill appearing *Routine HEENT Exam Head: Present normocephalic Eye: Present EOMI and PERRL ENT: Present mucous membranes moist *Routine Neck Exam Neck: Present supple; Absent lymphadenopathy *Routine Respiratory Exam Respiratory: Present wheezes (Mild wheezing) and diminished air movement; Absent accessory muscle use, rhonchi or crackles *Routine Cardiovascular Exam Cardiovascular: Present RRR *Routine Abdominal Exam Abdominal: Present soft and normoactive bowel sounds; Absent tenderness *Routine Rectal Exam Patient deferred: visual exam *Routine Exam Patient deferred: penile exam *Routine Extremities Exam Extremities: Absent cyanosis, clubbing or edema *Routine Skin Exam Skin: Present warm; Absent rash *Routine Neurological Exam Neurological: Present alert and oriented X3 Results Data Completed and Pending Labs on day of discharge: Labs from last 24 hours 05/07/24 05/06/24 05/06/24 02:38 23:30 19:15 Lactate 1.2 2.3 H 2.6 H Troponin I 05/06/24 05/06/24 12:28 11:39 Lactate 3.0 H Troponin I 0.03 Preliminary micro results at discharge 05/06/24 05:35 Blood Culture - Preliminary Blood NO GROWTH AFTER 24 HOURS 05/06/24 05:35 Blood Culture - Preliminary Blood NO GROWTH AFTER 24 HOURS DS: Diagnosis Discharge Diagnosis (1) Pneumonia: Status: Acute Code(s): J18.9 - Pneumonia, unspecified organism Qualifiers: Laterality: right Lung location: lower lobe of lung Pneumonia type: due to unspecified organism Qualified Code(s): J18.9 - Pneumonia, unspecified organism (2) Sepsis: Status: Acute Code(s): A41.9 - Sepsis, unspecified organism (3) Acute exacerbation of chronic obstructive pulmonary disease: Status: Acute Code(s): J44.1 - Chronic obstructive pulmonary disease with (acute) exacerbation (4) Acute on chronic respiratory failure with hypoxia and hypercapnia: Status: Acute Code(s): J96.21 - Acute and chronic respiratory failure with hypoxia; J96.22 - Acute and chronic respiratory failure with hypercapnia (5) S/P coronary artery stent placement: Status: Acute Code(s): Z95.5 - Presence of coronary angioplasty implant and graft (6) Panlobular emphysema: Status: Chronic Code(s): J43.1 - Panlobular emphysema Meds Home Medications and Allergies Home Medications ?Medication ?Instructions ?Recorded ?Confirmed ?Type tadalafil 10 mg tablet 10 mg PO DAILY PRN sexual activity 01/04/24 05/06/24 Rx #30 tabs Ventolin HFA 90 mcg/actuation 1 inh inhalation QID #8 grams 03/23/24 05/06/24 Rx aerosol inhaler (albuterol sulfate) fluticasone fur. 100 mcg-umeclid 1 inh inhalation DAILY #28 ea 04/18/24 05/06/24 Rx 62.5 mcg-vilant 25 mcg inhalat.powder (Trelegy Ellipta) ipratropium 0.5 mg-albuterol 3 mg 3 ml inhalation Q4-6H PRN 04/18/24 05/06/24 Rx (2.5 mg base)/3 mL nebulization shortness of breath or wheezing soln #180 mL aspirin 81 mg tablet,delayed 81 mg PO DAILY 30 days #30 tabs 05/07/24 Rx release cefdinir 300 mg capsule 300 mg PO BID #6 caps 05/07/24 Rx pitavastatin calcium 2 mg tablet 2 mg PO DAILY #30 tabs 05/07/24 Rx prednisone 20 mg tablet 40 mg (2 x 20 mg) PO DAILY 3 days 05/07/24 Rx #6 tabs New Prescriptions to Start Prescriptions: Lenny Abdullahi cefdinir [place],Lenny pitavastatin calcium [place]win,Lenny prednisone [place],Lenny Allergies Allergy/AdvReac Type Severity Reaction Status Date / Time umeclidinium Allergy Mild Verified 02/24/24 10:34 [From Anoro Ellipta] Discharge Plan Disposition Patient Disposition: Home, Self-Care Condition: Fair Discharge Order Discharge Orders: Discharge Order (Routine); Ordered 05/07/24 Ordered By: Lenny Wood Follow up Plan Follow up with: Lenny Christensen DO [Primary Care Provider] - Enter time for follow up (On Thursday. please call for appointment) Brianna Becerra MD [Physician] - Enter time for follow up (Next scheduled follow-up. call office for appointment) Prescriptions/Medication Reconciliation: New aspirin 81 mg Tablet,Delayed Release (Dr/Ec) 81 mg PO DAILY 30 Days Qty: 30 1RF pitavastatin calcium 2 mg tablet 2 mg PO DAILY Qty: 30 0RF cefdinir 300 mg capsule 300 mg PO BID Qty: 6 0RF prednisone 20 mg Tablet 40 mg PO DAILY 3 Days Qty: 6 0RF Continued tadalafil 10 mg tablet 10 mg PO DAILY PRN (Reason: sexual activity) Qty: 30 1RF Rx Instructions: administer approximately 30min before sexual activity; do not use more than 1 dose per 24hrs albuterol sulfate [Ventolin HFA] 90 mcg/actuation HFA aerosol inhaler 1 inh inhalation QID Qty: 8 3RF ipratropium-albuterol 0.5 mg-3 mg(2.5 mg base)/3 mL solution for nebulization 3 ml inhalation Q4-6H PRN (Reason: shortness of breath or wheezing) Qty: 180 2RF Trelegy Ellipta 100-62.5-25 mcg blister with device 1 inh inhalation DAILY Qty: 28 5RF Discontinued tamsulosin 0.4 mg capsule 0.4 mg PO HS Patient Comments: TAKE 1 CAPSULE BY MOUTH ONCE DAILY Problem Reconciliation Problems Reviewed?: Yes Patient Discharge Instructions ACTIVITY: Ambulate as tolerated DIET: cardiac Additional Instructions: Use 3L oxygen continuously until you see your PCP within a week, preferably on Thursday. Finish course of antibiotic (Cefdinir) and steroid (prednisone). Patient Instructions: DI for Chronic Obstructive Pulmonary Disease, DI for Pneumonia -- Adult, DI for Shortness of Breath, DI for Sepsis -- Adult, DI for Respiratory Failure Print Language: Sinhala Providers Primary Care Provider: Lenny Christensen [place] Provider: Torin Rosario Attending Provider: Torin Rosario
[2024-05-07 12:00] VITALS: BP 105/62; PULSE 82; PULSE 90; RESP 18; TEMP 36.7; O2SAT 93
[2024-05-07 12:26] VITALS: PULSE 91
--- NOTE | 2024-05-09 15:54 | CARE MANAGER ---
Contacted patient related to hospital discharge. He states he is still feeling a little bad, but better than he was. He has new medications except for cholesterol medication. Explained that medication was denied by insurance and Dr. Prieto stated for the patient to follow up with PCP regarding what medication to try. Patient verbalizes understanding and states that he has an appointment with PCP, Ashly Oro, on . He denies any other questions or concerns. OCHOA Childress
== END 2024-05-07 14:16 | disposition home or self-care (01) | DRG 871 ==
LOC: ER 06:34 → 2ND 06:38
PROVIDERS: Internal Medicine Adolescent Medicine; Student in an Organized Health Care Education/Training Program; Admitting Provider Family Medicine; Emergency Provider Emergency Medicine; PCP Internal Medicine; Visit Provider Family Medicine
DX: A41.9 Sepsis, unspecified organism (principal); J18.9 Pneumonia, unspecified organism; J96.21 Acute and chronic respiratory failure with hypoxia; J96.01 Acute respiratory failure with hypoxia; J44.1 Chronic obstructive pulmonary disease with (acute) exacerbation; J44.0 Chronic obstructive pulmonary disease with (acute) lower respiratory infection; E87.20 Acidosis, unspecified; I25.10 Atherosclerotic heart disease of native coronary artery without angina pectoris; R91.1 Solitary pulmonary nodule; J43.1 Panlobular emphysema; Z87.891 Personal history of nicotine dependence; E86.0 Dehydration
CPT/HCPCS: 36415; 71045; 80053; 82803; 83605; 83880; 84484; 85007; 85025; 85027; 85610; 87040; 87070; 87205; 87265; 87486; 87581; 87632; 87635; 87636; 93005; 94618; 94640; 94660; 94761; 99291; J0456; J0696; J1650; J7030; J7050; J7120; J7613; J7620

== ENCOUNTER 2024-05-12 18:48 | Outpatient (CLI) | payer BC, SELFPAY ==
[2024-05-12 18:25] LABS: Basophils # 0.1 K/mm3 (0-0.2); Basophils % 0.7 % (0.1-2.0); Eosinophils # 0.4 K/mm3 (0.0-0.4); Eosinophils % 4.8 % (0.1-12.0); Hematocrit 43.1 % (42.0-52.0); Hemoglobin 13.4 g/dL (14.1-18.0); Lymphocytes # 2.1 K/mm3 (0.7-4.5); Mean Corpuscular HGB Conc 31.1 g/dL (31.8-35.4); Mean Corpuscular Hemoglobin 30.4 pg (27.0-31.2); Mean Corpuscular Volume 97.8 fl (80-94); Mean Platelet Volume 8.1 fl (7.4-10.4); Monocytes # 0.9 K/mm3 (0.1-1.0); Monocytes % 10.3 % (1.7-9.3); Neutrophils % 59.2 % (37.0-80.0); Platelet Count 346 K/mm3 (142-424); Red Blood Count 4.41 M/mm3 (4.60-6.20); Red Cell Distribution Width 13.2 % (11.5-17.5); White Blood Count 8.5 K/mm3 (4.8-10.8)
[2024-05-12 19:27] LABS: Alanine Aminotransferase 22 U/L (12-78); Albumin Level 3.4 g/dl (3.5-5.0); Albumin/Globulin Ratio 1.3 (1.1-1.8); Alkaline Phosphatase 56 U/L (38-126); Anion Gap 9.8 mEq/L (5-15); Aspartate Amino Transferase 25 U/L (17-59); Bilirubin,Total 0.6 mg/dl (0.2-1.3); Blood Urea Nitrogen 13 mg/dl (9-20); Calcium 8.6 mg/dl (8.4-10.2); Carbon Dioxide 29 mmol/L (22.0-30.0); Chloride 103 mmol/L (98-107); Chol/HDL Ratio 3.6 (1-3.5); Cholesterol 135 mg/dl (140-200); Estimated Glomerular Filt Rate 98 ml/min (>60); GFR (African American) 119 ML/MIN (>60); Globulin 2.6 g/dL (1.3-3.2); Glucose 74 mg/dl (74-100); HDL Cholesterol 38 mg/dl (40-60); Potassium 3.8 mmoL/L (3.5-5.1); Sodium 138 mmol/L (136-145); Triglycerides 118 mg/dl (30-150); VLDL Cholesterol 24 mg/dL (0-40)
[2024-05-12 19:37] LABS: Direct LDL Cholesterol 68.64 mg/dL (100-129)
[2024-05-12 19:47] LABS: Hemoglobin A1C 5.5 % (4.0-6.0)
[2024-05-12 19:57] LABS: Prostate Specific Ag Screen 7.9 ng/ml (0.0-4.0); Thyroid Stimulating Hormone 0.97 uIU/mL (0.465-4.68)
[2024-05-12 21:55] LABS: HIV (1&2) Antibody Rapid NONREACTIVE (NONREACTIVE)
[2024-05-14 09:32] LABS: HCV Ab Non Reactive (Non Reactive)
== END 2024-05-12 23:59 | disposition home or self-care (01) ==
LOC: LAB.DROPOF 18:49
PROVIDERS: PCP Student in an Organized Health Care Education/Training Program; Visit Provider Student in an Organized Health Care Education/Training Program
DX: Z11.59 Encounter for screening for other viral diseases (principal); R73.9 Hyperglycemia, unspecified; J18.9 Pneumonia, unspecified organism; I25.118 Atherosclerotic heart disease of native coronary artery with other forms of angina pectoris; Z13.29 Encounter for screening for other suspected endocrine disorder; R97.20 Elevated prostate specific antigen [PSA]; Z11.4 Encounter for screening for human immunodeficiency virus [HIV]
CPT/HCPCS: 80050; 80053; 80061; 83036; 84443; 85025; 86803; 87389; G0103

== ENCOUNTER 2024-05-30 09:04 | Outpatient (CLI) | payer BC, SELFPAY ==
[2024-05-30 18:46] LABS: Basophils # 0.1 K/mm3 (0-0.2); Basophils % 1.3 % (0.1-2.0); Eosinophils # 0.5 K/mm3 (0.0-0.4); Eosinophils % 10.6 % (0.1-12.0); Hematocrit 42.7 % (42.0-52.0); Hemoglobin 14.2 g/dL (14.1-18.0); Lymphocytes # 1.6 K/mm3 (0.7-4.5); Lymphocytes % 31.8 % (10-50); Mean Corpuscular HGB Conc 33.3 g/dL (31.8-35.4); Mean Corpuscular Hemoglobin 30.5 pg (27.0-31.2); Mean Corpuscular Volume 91.7 fl (80-94); Mean Platelet Volume 8.8 fl (7.4-10.4); Monocytes # 0.4 K/mm3 (0.1-1.0); Monocytes % 7.5 % (1.7-9.3); Neutrophils # 2.5 K/mm3 (1.8-7.8); Neutrophils % 48.7 % (37.0-80.0); Platelet Count 336 K/mm3 (142-424); Red Blood Count 4.65 M/mm3 (4.60-6.20); Red Cell Distribution Width 13.2 % (11.5-17.5); White Blood Count 5.1 K/mm3 (4.8-10.8)
[2024-05-30 19:42] LABS: Iron 91 ug/dL (49-181)
[2024-05-30 19:51] LABS: Total Iron Binding Capacity 272 ug/dL (261-462)
[2024-05-30 20:17] LABS: Ferritin 115 ng/ml (17.9-464)
[2024-05-30 20:26] LABS: Vitamin B12 577 pg/mL (239-931)
[2024-06-01 18:14] LABS: Peripheral Smear Review Scanned Result
== END 2024-05-30 23:59 | disposition home or self-care (01) ==
LOC: LAB.DROPOF 05-31 09:16
PROVIDERS: PCP Student in an Organized Health Care Education/Training Program; Visit Provider Student in an Organized Health Care Education/Training Program
DX: D64.9 Anemia, unspecified (principal)
CPT/HCPCS: 82607; 82728; 82746; 83540; 83550; 85025

== ENCOUNTER 2024-06-20 14:00 | Outpatient (CLI) | payer BC, SELFPAY ==
[2024-06-20 17:59] LABS: Coronavirus 19, PCR Not Detected (NotDetected); Influenza A, PCR Not Detected (NotDetected); Influenza B, PCR Not Detected (NotDetected)
== END 2024-06-20 23:59 | disposition home or self-care (01) ==
LOC: LAB.DROPOF 06-21 15:20
PROVIDERS: PCP Student in an Organized Health Care Education/Training Program; Visit Provider Student in an Organized Health Care Education/Training Program
DX: R05.9 Cough, unspecified (principal)
CPT/HCPCS: 87636

== ENCOUNTER 2024-06-29 13:49 | Outpatient (CLI) | payer BC, SELFPAY ==
[2024-06-29 19:16] LABS: Prostate Specific Ag, Diagnost 7.39 ng/ml (0.0-4.0)
== END 2024-06-29 23:59 | disposition home or self-care (01) ==
LOC: LAB.DROPOF 06-30 11:18
PROVIDERS: PCP Nurse Practitioner Family; Visit Provider Nurse Practitioner Family
DX: R97.20 Elevated prostate specific antigen [PSA] (principal); N40.0 Benign prostatic hyperplasia without lower urinary tract symptoms; R39.9 Unspecified symptoms and signs involving the genitourinary system
CPT/HCPCS: 84153; 87086

== ENCOUNTER 2024-07-18 15:05 | Outpatient (CLI) | payer BC, SELFPAY ==
[2024-07-18 17:48] LABS: Coronavirus 19, PCR Not Detected (NotDetected); Influenza A, PCR Not Detected (NotDetected); Influenza B, PCR Not Detected (NotDetected)
== END 2024-07-18 23:59 | disposition home or self-care (01) ==
LOC: LAB.DROPOF 07-19 08:39
PROVIDERS: PCP Student in an Organized Health Care Education/Training Program; Visit Provider Student in an Organized Health Care Education/Training Program
DX: R09.81 Nasal congestion (principal)
CPT/HCPCS: 87636

== ENCOUNTER 2024-08-11 11:29 | Outpatient (CLI) | payer BC, SELFPAY ==
--- NOTE | 2024-08-11 11:35 | XR_ITS ---
FINAL REPORT CLINICAL HISTORY: Nonspecific cough COMPARISON: 05/06/2024 FINDINGS: There are severe underlying emphysematous changes. No acute pulmonary density is present. No significant pleural effusion. There is no pneumothorax. The heart is normal in size. The mediastinum is unremarkable. IMPRESSION: Emphysema without acute process. Reviewed, Interpreted and Dictated by Aditya Draper MD Transcribed by Adilene Jurado Authenticated and [facility]
== END 2024-08-11 23:59 | disposition home or self-care (01) ==
LOC: RAD 11:31
PROVIDERS: PCP Student in an Organized Health Care Education/Training Program; Visit Provider Student in an Organized Health Care Education/Training Program
DX: R05.9 Cough, unspecified (principal)
CPT/HCPCS: 71046

== ENCOUNTER 2024-08-19 07:08 | Outpatient (CLI) | payer BC, SELFPAY ==
--- NOTE | 2024-08-19 07:08 | CT_ITS ---
FINAL REPORT TECHNIQUE: Axial images were obtained through the chest without contrast. Sagittal and coronal reformatted images were obtained and reviewed. This study was performed with techniques to keep radiation doses as low as reasonably achievable, (ALARA). Individualized dose reduction techniques using automated exposure control or adjustment of mA and/or kV according to the patient's size were employed. CLINICAL HISTORY: Lung nodule follow-up COMPARISON: 02/15/2024 and 10/05/2023 FINDINGS: There is a small sliding-type hiatal hernia. There are advanced changes of centrilobular emphysema. Biapical pleural and parenchymal scarring is identified. Multiple nodules are present. Nodules in the superior segment of the left lower lobe measured up to 13 mm on image 30 of series 2 and 10 mm on image 32 of series 2. Nodules in the inferior right upper lobe anteriorly are seen. The more medial nodule measures 10 mm. The more lateral nodule measures 9 mm. Other smaller nodules are present. Since September 2023, the superior nodules in the left lower lobe are unchanged. The inferior nodules in the right upper lobe have decreased in size. No new nodules are identified. Given the stability or improvement, these are favored to be postinflammatory. The heart size is normal. There is no pericardial or pleural effusion. Limited images of the upper abdomen are unremarkable. IMPRESSION: Stable or improved nodules as detailed above, favor postinflammatory. Recommend continued follow-up in 1 year. Reviewed, Interpreted and Dictated by Checo Ballesteros MD Transcribed by Charmaine Guillory Authenticated and [facility]
== END 2024-08-19 23:59 | disposition home or self-care (01) ==
LOC: RAD 07:08
PROVIDERS: PCP Student in an Organized Health Care Education/Training Program; Visit Provider Internal Medicine Pulmonary Disease
DX: R91.8 Other nonspecific abnormal finding of lung field (principal)
CPT/HCPCS: 71250

== ENCOUNTER 2024-11-28 08:08 | Outpatient (CLI) | payer OTHER, SELFPAY ==
[2024-12-01 17:05] LABS: Prostate Specific Ag, Diagnost 7.55 ng/ml (0.0-4.0)
--- OUTSIDE RECORDS SUMMARY | 2024-12-05 08:10 | XMS_ITS | Data Portability ---
Author Organization [facility] [place] Address [address] [place] [address] Assessment No assessment recorded. Plan of Treatment Reminders Order Date Submit Date Provider Last Modified By Organization Details Last Modified Time Details Appointments None recorded. Lab None recorded. Referral None recorded. Procedures None recorded. Surgeries None recorded. Imaging None recorded. Medication Orders tamsulosin 0.4 mg capsule 2022 023 [email or web address] [id number] Not available 07:46:23 Patient TargetsNo targets recorded. Patient InstructionsNo instructions recorded. Reason for Referral None Reported. Results Created Date Observation Date Name Description Value Unit Range Abnormal Flag Note LastModifiedBy Organization Detail LastModifiedTime 11/18/1911/17/2022 BASIC METAB OLIC PANEL sodium 140 mmol/ L 137-14 7 Not Available [facility] (Pre-Op Clinic) [address] [place] [address] [place], [address], 11/17/2022 17:28:59 11/18/1911/17/2022 BASIC METAB OLIC PANEL potassium 4.3 mmol/ L 3.5-5. 1 Not Available [facility] (Pre-Op Clinic) [address] [place] [address] [place], [address], 11/17/2022 17:28:59 11/18/19 23 11/17/2022 BASIC METAB OLIC PANEL chloride 106 mmol/ L 98-110 Not Available [facility] (Pre-Op Clinic) [address] [place] [address] [place], [address], 11/17/2022 17:28:59 11/18/19 23 11/17/2022 BASIC METAB OLIC PANEL carbon dioxide 31 mmol/ L 21-30 high Not Available [facility] (Pre-Op Clinic) [address] [facility] [place], [address], 11/17/2022 17:28:59 11/18/19 23 11/17/2022 BASIC METAB OLIC PANEL anion gap 3 mmol/ L 6-14 low Not Available [facility] (Pre-Op Clinic) [address] [place] [address] [place], [address], 11/17/2022 17:28:59 11/18/19 23 11/17/2022 BASIC METAB OLIC PANEL glucose 71 mg/dL 70-115 Not Available [facility] (Pre-Op Clinic) [address] [place] [address] [place], [address], 11/17/2022 17:28:59 11/18/19 23 11/17/2022 BASIC METAB OLIC PANEL BUN 11 mg/dL 9-20 Not Available [facility] (Pre-Op Clinic) [address] [place] [address] [place], [address], 11/17/2022 17:28:59 11/18/19 23 11/17/2022 BASIC METAB OLIC PANEL creatinine 0.9 mg/dL 0.5-1. 5 Not Available [facility] (Pre-Op Clinic) [address] [place] [address] [place], [address], 11/17/2022 17:28:59 11/18/19 23 11/17/2022 BASIC METAB OLIC PANEL BUN/creatini ne ratio 12 ratio 10-20 Not Available [facility] (Pre-Op Clinic) [address] [place] [address] [place], [address], 11/17/2022 17:28:59 11/18/19 23 11/17/2022 BASIC METAB OLIC PANEL glom filtration rate 91 mL/mi n >60- Not Available [facility] (Pre-Op Clinic) [address] [place] [address] [place], [address], 11/17/2022 17:28:59 11/18/19 23 11/17/2022 BASIC METAB OLIC PANEL osmolality (calculated) 289 mosmo l/kg 275-30 1 OSMOL ALITY IS A CALCU LATIO N UTILI ZING THE SERUM /PLAS MA SODIU M, GLUCO SE AND UREA NITRO GEN (BUN) LEVEL S. FOR THE MOST ACCUR ATE RESUL T A MEASU RED SERUM OSMOL ALITY IS SUGGE STED. Not Available [facility] (Pre-Op Clinic) [address] [place] [address] [place], [address], 11/17/2022 17:28:59 11/18/19 23 11/17/2022 BASIC METAB OLIC PANEL calcium 9.1 mg/dL 8.5-10 .8 Not Available [facility] (Pre-Op Clinic) [address] [place] [address] [place], [address], 11/17/2022 17:28:59 11/18/19 23 11/17/2022 BASIC METAB OLIC PANEL note Unles s other soliman noted testi ng perfo rmed at: [facility] [address] [place] [address] Gomez guadalupe MD Not Available [facility] (Pre-Op Clinic) [address] [place] [address] [place], [address], 11/17/2022 17:28:59 11/19/19 23 11/18/2022 RFS-P ATHOL OGY SPECI MEN REQUE ST pathreq Patho logy [address] [place] [address] Phone or [phone] Fax García cardoza Jr., M.D., Medic al Direc tor [facility] [address] : [place] [address] Phone Numbe r: [id number] Gomez guadalupe M.D. PATHO LOGY REPOR T Patie nt Name: SERGIO SNELL Date of : 1959 Age/S ex: 62/M Accou nt Numbe r: [id number] Medic al Recor d Numbe r: [id number] Order ing MD: WADE MAIN AM Date Colle cted : 2022 Date Recei selin : 2022 Date Repor lisa : 2022 Exam: Biops y Acces pauline# : [id number] Labor atory #: [id number] Copie s To: Techn ician : [facility] lisa prost ate speci fic antig en BodyS ite PROST ATE, NEEDL E CORE BIOPS Y SubSi te RIGHT LATER AL BASE Gross Descr iptio n Label ed righ t later al base biops y . Consi sts of 1 reed needl e core measu ring 1.3 cm in lengt h and 0.[address] and is submi tted entir nile in 1 block . KIRSTIN Micro scopi c Descr iptio n Secti ons confi rm cores of fibro muscu lar prost atic slade a into which are embed ded benig n tubo- alveo lar gland s with intac t lumin al epith elium and basal epith elium . Patch y lymph ocyti c chron ic infla mmati on is obser selin. No adeno carci noma or prost atic intra epith elial neopl baldo is obser selin. Final Diagn osis BENIG N [place] [id number] BodyS ite PROST ATE, NEEDL E CORE BIOPS Y Legal ly authe ntica lisa by GOMEZ JAMES MD 11-20 11:37 :00 SubSi te RIGHT BASE Gross Descr iptio n Label ed righ t base biops y . Consi sts of 2 reed needl e cores rangi ng in lengt h from 0.7 to 0.9 cm and each piece being 0.[address] and is submi tted entir nile in 1 block . Micro scopi c Descr iptio n Secti ons confi rm cores of fibro muscu lar prost atic slade a into which are embed ded benig n tubo- alveo lar gland s with intac t lumin al epith elium and basal epith elium . Patch y lymph ocyti c chron ic infla mmati on is obser selin. No adeno carci noma or prost atic intra epith elial neopl baldo is obser selin. Final Diagn osis BENIG N [place] [address] BodyS ite PROST ATE, NEEDL E CORE BIOPS Y SubSi te RIGHT LATER AL MID Gross Descr iptio n Label ed righ t later al mid biops y . Consi sts of 1 reed needl e core measu ring 1.1 cm in lengt h and 0.[address] and is submi tted entir nile in 1 block . Micro scopi c Descr iptio n Secti ons confi rm cores of fibro muscu lar prost atic slade a into which are embed ded benig n tubo- alveo lar gland s with intac t lumin al epith elium and basal epith elium . Patch y lymph ocyti c chron ic infla mmati on is obser selin. No adeno carci noma or prost atic intra epith elial neopl baldo is obser selin. Final Diagn osis BENIG N [place] [address] BodyS ite PROST ATE, NEEDL E CORE BIOPS Y SubSi te RIGHT MID Legal ly authe ntica lisa by GOMEZ JAMES MD 11-20 11:37 :00 Gross Descr iptio n Label ed righ t mid biops y . Consi sts of 1 reed needl e core measu ring 1.6 cm in lengt h and 0.[address] and is submi tted entir nile in 1 block . Micro scopi c Descr iptio n Secti ons confi rm cores of fibro muscu lar prost atic slade a into which are embed ded benig n tubo- alveo lar gland s with intac t lumin al epith elium and basal epith elium . Patch y lymph ocyti c chron ic infla mmati on is obser selin. No adeno carci noma or prost atic intra epith elial neopl baldo is obser selin. Final Diagn osis BENIG N [place] [address] BodyS ite PROST ATE, NEEDL E CORE BIOPS Y SubSi te RIGHT LATER AL APEX Gross Descr iptio n Label ed righ t later al apex biops y . Consi sts of 1 reed needl e core measu ring 2.1 cm in lengt h and 0.[address] and is submi tted entir nile in 1 block . Micro scopi c Descr iptio n Secti ons confi rm cores of fibro muscu lar prost atic slade a into which are embed ded benig n tubo- alveo lar gland s with intac t lumin al epith elium and basal epith elium . A focus of cribr iform hyper plasi a is ident ified , confi rmed on PIN4 immun ostai n cockt ail with appro priat e contr ol. The focus is [place] ase negat kriss, P63 and HMWCK posit kriss at the perip aurelio, confi rming benig nity. Patch y lymph ocyti c chron ic infla mmati on is obser selin. No adeno carci noma or prost atic intra epith elial neopl baldo is obser selin. Final Diagn osis BENIG N [place]OST [place] [address] ;8834 4 BodyS ite PROST ATE, NEEDL E CORE BIOPS Y Legal ly authe ntica lisa by GOMEZ JAMES MD 11-20 11:37 :00 SubSi te RIGHT APEX Gross Descr iptio n Label ed righ t apex biops y . Consi sts of 1 reed needl e core measu ring 1.6 cm in lengt h and 0.[address] and is submi tted entir nile in 1 block . Micro scopi c Descr iptio n Secti ons confi rm cores of fibro muscu lar prost atic slade a into which are embed ded benig n tubo- alveo lar gland s with intac t lumin al epith elium and basal epith elium . Patch y lymph ocyti c chron ic infla mmati on is obser selin. No adeno carci noma or prost atic intra epith elial neopl baldo is obser selin. Final Diagn osis BENIG N [place]OST [place] [address] BodyS ite PROST ATE, NEEDL E CORE BIOPS Y SubSi te LEFT LATER AL BASE Gross Descr iptio n Label ed left later al base biops y . Consi sts of 1 reed needl e core measu ring 1.9 cm in lengt h and 0.[address] and is submi tted entir nile in 1 block . Micro scopi c Descr iptio n Secti ons confi rm cores of fibro muscu lar prost atic slade a into which are embed ded benig n tubo- alveo lar gland s with intac t lumin al epith elium and basal epith elium . Patch y lymph ocyti c chron ic infla mmati on is obser selin. No adeno carci noma or prost atic intra epith elial neopl baldo is obser selin. Final Diagn osis BENIG N [place] [address] BodyS ite PROST ATE, NEEDL E CORE BIOPS Y SubSi te LEFT BASE Legal ly authe ntica lisa by GOMEZ JAMES MD 11-20 11:37 :00 Gross Descr iptio n Label ed left base . Consi sts of 1 reed needl e core measu ring 1.7 cm in lengt h and 0.[address] and is submi tted entir nile in 1 block . Micro scopi c Descr iptio n Secti ons confi rm cores of fibro muscu lar prost atic slade a into which are embed ded benig n tubo- alveo lar gland s with intac t lumin al epith elium and basal epith elium . Patch y lymph ocyti c chron ic infla mmati on is obser selin. No adeno carci noma or prost atic intra epith elial neopl baldo is obser selin. Final Diagn osis BENIG N [place]OST [place] [address] BodyS ite PROST ATE, NEEDL E CORE BIOPS Y SubSi te LEFT LATER AL MID Gross Descr iptio n Label ed left later al mid biops y . Consi sts of 1 reed needl e core measu ring 2.2 cm in lengt h and 0.[address] and is submi tted entir niel in 1 block . Micro scopi c Descr iptio n Secti ons confi rm cores of fibro muscu lar prost atic slade a into which are embed ded benig n tubo- alveo lar gland s with intac t lumin al epith elium and basal epith elium . Patch y lymph ocyti c chron ic infla mmati on is obser selin. No adeno carci noma or prost atic intra epith elial neopl baldo is obser selin. Final Diagn osis BENIG N [place]OST [place] [address] BodyS ite PROST ATE, NEEDL E CORE BIOPS Y SubSi te LEFT MID Gross Descr iptio n Legal ly authe ntica lisa by GOMEZ JAMES MD 11-20 11:37 :00 Label ed left mid biops y . Consi sts of 1 reed needl e core measu ring 2.0 cm in lengt h and 0.[address] and is submi tted entir nile in 1 block . Micro scopi c Descr iptio n Secti ons confi rm cores of fibro muscu lar prost atic slade a into which are embed ded benig n tubo- alveo lar gland s with intac t lumin al epith elium and basal epith elium . Patch y lymph ocyti c chron ic infla mmati on is obser selin. No adeno carci noma or prost atic intra epith elial neopl baldo is obser selin. Final Diagn osis BENIG N PROST [place] [address] BodyS ite PROST ATE, NEEDL E CORE BIOPS Y SubSi te LEFT LATER AL APEX Gross Descr iptio n Label ed left later al apex biops y . Consi sts of 1 reed needl e core measu ring 1.7 cm in lengt h and 0.[address] and is submi tted entir nile in 1 block . Micro scopi c Descr iptio n Secti ons confi rm cores of fibro muscu lar prost atic slade a into which are embed ded benig n tubo- alveo lar gland s with intac t lumin al epith elium and basal epith elium . Patch y lymph ocyti c chron ic infla mmati on is obser selin. No adeno carci noma or prost atic intra epith elial neopl baldo is obser selin. Final Diagn osis BENIG N [place] [address] BodyS ite PROST ATE, NEEDL E CORE BIOPS Y SubSi te LEFT APEX Gross Descr iptio n Label ed left apex biops y . Consi sts of 1 reed needl e core measu ring Legal ly authe ntica lisa by GOMEZ JAMES MD 11-20 11:37 :00 1.6 cm in lengt h and 0.[address] and is submi tted entir nile in 1 block . Micro scopi c Descr iptio n Secti ons confi rm cores of fibro muscu lar prost atic slade a into which are embed ded benig n tubo- alveo lar gland s with intac t lumin al epith elium and basal epith elium . Patch y lymph ocyti c chron ic infla mmati on is obser selin. No adeno carci noma or prost atic intra epith elial neopl baldo is obser selin. Profe ssion al inter preta tion rende red by Gomez guadalupe Jr., M.Mikey. at [facility] , [address] [place] [id number] . Final Diagn osis BENIG N PROST ATE TISSU E EJT/[place] [address] Legal ly authe ntjillian lisa by GOMEZ JAMES MD 11-20 11:37 :00 Not Available [facility] (Pre[facility]Op [facility]) [address] [place] [address] [place], [address], 11/20/2022 11:59:36 11/21/19 23 11/17/2022 elect melvina north am No observ ation record ed. [email or web address] Not Available 11/21 12:20:30 Result Notes None recorded. Problems Name Problem SNOMED Code Status Onset Date Resolution Date Notes Provider Name and Address Organization Details Recorded Time Chronic obstructive pulmonary disease 71923773 Active 2022 CEE Jennings - [facility] - [place] [facility] [place] 14:40:08 Problem Notes None recorded. Procedures Surgical History None recorded. Imaging Results Imaging Date Name Status LastModified by Organization Details LastModified Time 11/17/2022 electrocardiogram completed [email or web address] Informa tion not available 11/21/2022 12:20:30 Procedure Notes None recorded. Medical Equipment None Reported. Allergies No known drug allergies Medications Name Sig Start Date Stop Date Status Note LastModified by Organization Details LastModified Time promethazine -DM 6.25 mg-15 mg/5 mL oral syrup TAKE 5 ML BY MOUTH EVERY 6 HOURS NEEDED FOR COUGH active Not Available Not Available No t Available nystatin 100,000 unit/mL oral suspension SWISH AND SWALLOW 5 ML EVERY 6 HOURS FOR 7 DAYS active Not Available Not Available No t Available prednisone 10 mg tablet TAKE FOUR TABLETS BY MOUTH ONCE DAILY FOR 3 DAYS --TAKE WITH FOOD-- -- FINISH ALL MEDICINE -- active Not Available Not Available Not Available nicotine 14 mg/24 hr daily transdermal patch APPLY 1 PATCH TOPICALLY ONCE DAILY active Not Available Not Available N ot Available ipratropium 0.5 mg-albuterol 3 mg (2.5 mg base)/3 mL nebulization soln USE 3 ML IN NEBULIZER EVERY 4 TO 6 HOURS NEEDED FOR SHORTNESS OF BREATH FOR WHEEZING active Not Available Not Available No t Available azithromycin 250 mg tablet TAKE 2 TABLETS BY MOUTH ON DAY 1, AND THEN TAKE 1 TABLET BY MOUTH ONCE A DAY ON DAY 2 THROUGH DAY 5 active Not Available Not Available No t Available fluconazole 150 mg tablet TAKE 1 TABLET BY MOUTH TWICE DAILY FOR 5 DAYS active Not Available Not Available No t Available benzonatate 200 mg capsule TAKE 1 CAPSULE BY MOUTH TWICE DAILY NEEDED FOR COUGH active Not Available Not Available No t Available prednisone 20 mg tablet TAKE 1 TABLET BY MOUTH TWICE DAILY FOR 5 DAYS active Not Available Not Available No t Available sildenafil 25 mg tablet TAKE 2 TABLETS BY MOUTH NEEDED FOR SEXUAL ACTIVITY, TAKE 30 MINUTES TO 4 HOURS BEFORE ACTIVITY active Not Available Not Available No t Available aspirin 81 mg tablet,delay ed release TAKE 1 TABLET BY MOUTH ONCE DAILY active Not Available Not Available No t Available sildenafil 100 mg tablet TAKE 1 TABLET BY MOUTH ONCE DAILY NEEDED FOR SEXUAL ACTIVITY. ADMINISTER 30 MINUTES TO 4 HOURS BEFORE ACTIVITY active Not Available Not Available No t Available tamsulosin 0.4 mg capsule Take 1 capsule by mouth once daily 2024 active Not Available Not Available Not Avai lable benzonatate 100 mg capsule TAKE 1 CAPSULE BY MOUTH THREE TIMES DAILY FOR COUGH active Not Available Not Available No t Available oseltamivir 75 mg capsule TAKE ONE CAPSULE BY MOUTH TWICE DAILY FOR 3 DAYS -- FINISH ALL MEDICINE -- active Not Available Not Available Not Available levofloxacin 500 mg tablet TAKE 1 TABLET BY MOUTH ONCE DAILY active Not Available Not Available No t Available levofloxacin 750 mg tablet TAKE 1 TABLET BY MOUTH THE DAY BEFORE PROCEDURE, 1 DAY OF PROCEDURE, AND 1 THE DAY AFTER THE PROCEDURE active Not Available Not Available No t Available albuterol sulfate HFA 90 mcg/actuatio n aerosol inhaler INHALE 1 PUFF BY MOUTH EVERY 6 HOURS FOR COPD/BREATH ING PROBLEMS active Not Available Not Available No t Available brompheniram ine-pseudoep hedrine-DM 2 mg-30 mg-10 mg/5 mL oral syrup active Not Available Not Available Not Available amoxicillin 875 mg-potassium clavulanate 125 mg tablet TAKE 1 TABLET BY MOUTH TWICE DAILY FOR 10 DAYS active Not Available Not Available No t Available Breo Ellipta 100 mcg-25 mcg/dose powder for inhalation INHALE 1 PUFF BY MOUTH ONCE DAILY active Not Available Not Available No t Available Vitals Date Recorded Body height Body mass index (BMI) Body weight Body temperature Provider Name and Address Organization Details Last Updated DateTime 10/29/2022 175.26 cm 20.7 kg/m2 28811.93 g 97.7 [degF] Brit Vanegas [facility] & [place] 10/29/2022 14:39:55 Social History Question Answer Notes LastModified by Organizat ion Details LastModified Time Tobacco Smoking Status Smoker, Current Status Unknown Brit Vanegas [facility], [facility] & [place] 10/29/2022 14:40:32 How Much Tobacco Do You Smoke? 1 PPW [email or web address] Information not available 10/29/2022 How Many Years Have You Smoked Tobacco? 20 [email or web address] Information not available 10/29/2022 Sex: Unknown Functional Status None recorded. Mental Status None recorded. Family History Nothing Reported. Medical History No medical history recorded. Past Encounters Encounter ID Performer Location Encounter Start Date Encounter Closed Date Diagnosis/Indication Diagnosis SNOMED-CT Code Diagnosis ICD10 Code Diagnosis Note [id number] Maulik Main Jr, MD [facility] [address] [address] 10/29/2022 14:21:15 10/29/2022 15:18:25 Prostate specific antigen above reference range 960306283 R97.20 patient's recent PSA reported as 9. A previous PSA in September 2019 was elevated at 5.6. Prostate exam today revealed a large prostate without nodularity . Patient is very worried about cost he states that his insurance is not good and that he has to pay for most of his cost out-of-poc ket. We discussed options including close monitoring with a PSA every 6 months versus a prostate biopsy. Patient would like to observe watchful waiting we will see him back in 6 months with a PSA. We discussed other possible causes of an elevated PSA including prostatiti s and BPH. His prostate is enlarged at 50 g. He has had some recent lower urinary tract symptoms which may have been caused by some prostatiti s. Lower urin michael tract symptoms due to benign prostatic hypertrophy [id number] 9101 N40.1 patient with lower urinary tract symptoms and a large prostate by exam. States he had nocturia in little dizziness with the Flomax previously . We discussed taking it at night prior to bed instead of during the day. He has dizziness during the day he is to discontinu e it. Health Concerns Section Related Observation LastModified by Organization Detai ls LastModified Time None Recorded Concern Status LastModified by Organization Details LastModified Time None Recorded Advance Directives Directive None Recorded Payers Encounter Date Sequence Insurance Name Policy Number Policy Flowers Covered Member ID Flowers Member ID Guarantor Name 10/29/2022 1 HANNAH-ND: BEBETO [facility] [id number] Cali Min [id number] Cali Min Notes Date Note Type Note Provider Name and Address Organization Details Recorded Time 10/29/2022 text/html Patient is a 62-year-old white male who comes in for 2nd opinion regarding recent PSA elevation. Patient states he saw Dr. Rip Bardales in August 2022. States his PSA was 9 at that time and the biopsy was recommended. 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 Patient has a history of coronary artery disease and COPD. He had stents placed several years ago and was previously on Plavix and aspirin. Maulik Main Jr, MD [address] [place] [address], [address], [place], [address], [place] [facility] - [place] 10/29/2022 15:54:32
--- OUTSIDE RECORDS SUMMARY | 2025-03-09 10:45 | XMS_ITS | Data Portability ---
Author Organization [facility] Address [address] [facility] [address] [place] [address] Care Team Providers Care Level Designer Name Role Phone [facility] Primary Care Provider Assessment Encounter Date Assessment Date Assessment LastModified by Organization Details LastModified Time 08/28/2022 08/28/2022 Medical management of lower urinary symptoms with tamsulosin. Complete antibiotic course with levofloxacin. Patient has erectile dysfunction and takes sildenafil 50 mg as needed. PSA order entered for [facility]. [email or web address] Not available 08/28/2022 15:12:28 Plan of Treatment Reminders Order Date Submit Date Provider Last Modified By Organization Details Last Modified Time Details Appointments None recorded. Lab PSA, serum or plasma 2022 023 [facility] ([facility] [address] [place] [address] [address], [place], [address], 3 15:20:14 Referral None recorded. Procedures None recorded. Surgeries None recorded. Imaging None recorded. Medication Orders tamsulosin 0.4 mg capsule 2022 023 [facility] [address], [place], [address], 3 15:11:08 Patient TargetsNo targets recorded. Patient [...] Updated DateTime 08/28/2022 175.26 cm 19.9 kg/m2 75835.97 g Erin Hargrovet [facility] 08/28/2022 15:05:54 Social History Question Answer Notes LastModified by Organizat ion Details LastModified Time Tobacco Smoking Status Former Smoker Erin Buck [facility] 08/28/2022 15:08:13 What Was The Date Of [...] SNOMED-CT Code Diagnosis ICD10 Code Diagnosis Note [id number] MORELIA SHI MD [facility] [address] [address] 08/28/2022 15:04:56 09/03/2022 11:18:21 Benign prostatic hyperplasia with outflow obstruction 905498390 N40.1 Delay when starting to pass urine 2088138 R39.11 Health Concerns Section Related Observation LastModified by Organization Detai ls LastModified Time None Recorded Concern Status LastModified by Organization Details LastModified Time None Recorded Advance Directives Directive None Recorded Payers Insurance Date Sequence Insurance Name Policy Number Policy Flowers Covered Member ID Flowers Member ID Guarantor Name 09/29/2022 1 [place] [id number] 6 Cali Hewitt Michaelsharda [id number] 32 Cali Min Notes Date Note Type [...] prostatitis with Cipro. MORELIA SHI MD [address] [place] [address], [address], [facility] 08/28/2022 15:12:49
--- OUTSIDE RECORDS SUMMARY | 2025-03-09 10:45 | XMS_ITS | Clinical Summary ---
Author Organization Healthcare Address [address] [place] [address] Care Team Providers Care Director Prison Name Role Phone Renaldo Gold MD Primary Care Provider [phone] Family History Medical History Relation Name Comments [...] Health Maintenance Due Date Last Done Comments [facility]-Depression Screening 1962 [facility]-/Child/Adol SDOH Screenings 1962 [facility]- SDOH Screenings 1980 [facility]-Adult SDOH Screenings 1980 [facility]-DTaP,Tdap,and Td Vaccine s (1 - Tdap) 1981 CT Colonography 2007 Colonoscopy 2007 FIT-DNA 2007 FIT 2007 FOBT 2007 Sigmoidoscopy 2007 [facility]-Colorectal Cancer Screening 2007 [facility]-Pneumococcal Vaccine: 50 + Years (1 of 1 - PCV) 2012 [facility]-Zoster Vaccines (1 of 2) 2012 GFI-XYLCW-80 Vaccine (1 - 20 24-25 season) 2024 [facility]-Influenza Vaccine (#1) 2025 [facility]-RSV Vaccine: 60+ Years o r [...] age to complete this topic Care Teams Director Prison Relationship Specialty Start Date End Date Renaldo Gold MD [address] [place] [address] PCP - General 01/04/21
--- OUTSIDE RECORDS SUMMARY | 2025-03-09 10:45 | XMS_ITS | Data Portability ---
Author Organization [facility] [place] Address [address] [place] [address] Assessment No assessment recorded. Plan of Treatment Reminders Order Date Submit Date Provider Last Modified By Organization Details Last Modified Time Details Appointments None recorded. Lab None recorded. Referral None recorded. Procedures None recorded. Surgeries None recorded. Imaging None recorded. Medication Orders tamsulosin 0.4 mg capsule 2022 023 [email or web address] Not available 07:46:23 Patient TargetsNo targets recorded. Patient InstructionsNo instructions recorded. Reason for Referral None Reported. Results Created Date Observation Date Name Description Value Unit Range Abnormal Flag Note LastModifiedBy Organization Detail LastModifiedTime 11/18/1911/17/2022 BASIC METAB OLIC PANEL sodium 140 mmol/ L 137-14 7 Not Available [facility] (Pre-Op Clinic) [address] [place] [address] [place], [address], 11/17/2022 17:28:59 11/18/1911/17/2022 BASIC METAB OLIC PANEL potassium 4.3 mmol/ L 3.5-5. 1 Not Available [facility] (Pre-Op Clinic) [address] [place] [address] [place], [address], 11/17/2022 17:28:59 11/18/19 23 11/17/2022 BASIC METAB OLIC PANEL chloride 106 mmol/ L 98-110 Not Available [facility] (Pre-Op Clinic) [address] [place] [address] [place], [address], 11/17/2022 17:28:59 11/18/19 23 11/17/2022 BASIC METAB OLIC PANEL carbon dioxide 31 mmol/ L 21-30 high Not Available [facility] (Pre-Op Clinic) [address] [facility] [place], [address], 11/17/2022 17:28:59 11/18/19 23 11/17/2022 BASIC METAB OLIC PANEL anion gap 3 mmol/ L 6-14 low Not Available [facility] (Pre-Op Clinic) [address] [facility] [place], [address], 11/17/2022 17:28:59 11/18/19 23 11/17/2022 BASIC METAB OLIC PANEL glucose 71 mg/dL 70-115 Not Available [facility] (Pre-Op Clinic) [address] [place] [address] [place], [address], 11/17/2022 17:28:59 11/18/19 23 11/17/2022 BASIC METAB OLIC PANEL BUN 11 mg/dL 9-20 Not Available [facility] (Pre-Op Clinic) [address] [place] [address] [place], [address], 11/17/2022 17:28:59 11/18/19 23 11/17/2022 BASIC METAB OLIC PANEL creatinine 0.9 mg/dL 0.5-1. 5 Not Available [facility] (Pre-Op Clinic) [address] [place] [address] [place], [address], 11/17/2022 17:28:59 11/18/19 23 11/17/2022 BASIC METAB OLIC PANEL BUN/creatini ne ratio 12 ratio 10-20 Not Available [facility] (Pre-Op Clinic) [address] [place] [address] [place], [address], 11/17/2022 17:28:59 11/18/19 23 11/17/2022 BASIC METAB OLIC PANEL glom filtration rate 91 mL/mi n >60- Not Available [facility] (Pre-Op Clinic) [address] [place] [address] [place], [address], 11/17/2022 17:28:59 11/18/19 23 11/17/2022 BASIC METAB OLIC PANEL osmolality (calculated) 289 mosmo l/kg 275-30 1 OSMOL ALITY IS A CALCU LATIO N UTILI ZING THE SERUM /PLAS MA SODIU M, GLUCO SE AND UREA NITRO GEN (BUN) LEVEL S. FOR THE MOST ACCUR ATE RESUL T A MEASU RED SERUM OSMOL ALITY IS SUGGE STED. Not Available [facility] (Pre-Op Clinic) [address] [place] [address] [place], [address], 11/17/2022 17:28:59 11/18/19 23 11/17/2022 BASIC METAB OLIC PANEL calcium 9.1 mg/dL 8.5-10 .8 Not Available [facility] (Pre-Op Clinic) [address] [place] [address] [place], [address], 11/17/2022 17:28:59 11/18/19 23 11/17/2022 BASIC METAB OLIC PANEL note Unles s other soliman noted testi ng perfo rmed at: [facility] [address] [place] [address] Gomez guadalupe MD Not Available [facility] (Pre-Op Clinic) [address] [place] [address] [place], [address], 11/17/2022 17:28:59 11/19/19 23 11/18/2022 RFS-P ATHOL OGY SPECI MEN REQUE ST pathreq Patho logy [address] [place] [address] Phone or [phone] Fax García cardoza Jr., M.D., Medic al Direc tor [facility] [address] : [place] [address] Phone Numbe r: [phone] Gomez guadalupe M.D. PATHO LOGY REPOR T Patie nt Name: SERGIO SNELL Date of : 1959 Age/S ex: 62/M Accou nt Numbe r: [id number] Medic al Recor d Numbe r: [id number] Order ing MD: WADE MAIN AM Date Colle cted : 2022 Date Recei selin : 2022 Date Repor lisa : 2022 Exam: Biops y Acces pauline# : [id number] Labor atory #: [id number] 6 Copie s To: Techn ician : Clini herbie Histo ry [place] lisa prost ate speci fic antig en [...] [place] [address] BodyS ite PROST ATE, NEEDL E CORE [...] [place] [address] BodyS ite PROST ATE, NEEDL E CORE [...] [place] [address] BodyS ite PROST ATE, NEEDL E CORE [...] [place] [address] BodyS ite PROST ATE, NEEDL E CORE [...] [place] [address] ;8834 4 BodyS ite PROST ATE, NEEDL [...] [place] [address] BodyS ite PROST ATE, NEEDL E CORE [...] [place] [address] BodyS ite PROST ATE, NEEDL E CORE [...] [place] [address] BodyS ite PROST ATE, NEEDL E CORE [...] [place] [address] BodyS ite PROST ATE, NEEDL E CORE [...] [place] [address] BodyS ite PROST ATE, NEEDL E CORE [...] [place] [address] BodyS ite PROST ATE, NEEDL E CORE [...] red by Gomez guadalupe Jr., M.D. at [facility] , [address] [place] [address] . Final Diagn osis BENIG N PROST ATE TISSU E EJT/[place] [address] Legal ly authe ntjillian lisa by GOMEZ JAMES MD 11-20 11:37 :00 Not Available [facility] (Pre-Op Clinic) [address] [place] [address], [address], 11/20/2022 11:59:36 11/21/19 23 11/17/2022 elect melvina north am No observ ation record ed. [email or web address] Not Available 11/21 12:20:30 Result Notes None recorded. Problems Name Problem SNOMED Code Status Onset Date Resolution Date Notes Provider Name and Address Organization Details Recorded Time Chronic obstructive pulmonary disease 61910187 Active 2022 [facility] - [facility] - [place] & [place] 14:40:08 Problem Notes None recorded. Medical Equipment [...] Updated DateTime 10/29/2022 175.26 cm 20.7 kg/m2 21410.93 g 97.7 [degF] Brit Vanegas [facility] & [place] 10/29/2022 14:39:55 Social History Question Answer Notes LastModified by Organizat ion Details LastModified Time Tobacco Smoking Status Smoker, Current Status Unknown Brit Vanegas [facility], [facility] & [place] 10/29/2022 14:40:32 How Much Tobacco Do You Smoke? 1 PPW [email or web address] Information not available 10/29/2022 How Many Years Have You Smoked Tobacco? 20 [email or web address] Information not available 10/29/2022 Sex: Unknown Functional Status None recorded. Mental Status None recorded. Family History Nothing Reported. Medical History No medical history recorded. Past Encounters Encounter ID Performer Location Encounter Start Date Encounter Closed Date Diagnosis/Indication Diagnosis SNOMED-CT Code Diagnosis ICD10 Code Diagnosis Note [id number] Maulik Main Jr, MD [facility] [address] [address] 10/29/2022 14:21:15 10/29/2022 15:18:25 Prostate specific antigen above reference range 127097360 R97.20 patient's recent PSA reported as 9. [...] tract symptoms due to benign prostatic hypertrophy 3509715079 9101 N40.1 patient with lower urinary tract [...] Flowers Member ID Guarantor Name 01/10/2025 1 [place]: [facility] [id number] 6 Cali Min [id number] Cali Min Notes Date Note Type [...] Plavix and aspirin. Maulik Main Jr, MD [address] [place] [address], [address], [place], [address], [facility] - [place] - [place] & [place] 10/29/2022 15:54:32
== END 2024-12-01 23:59 | disposition home or self-care (01) ==
LOC: LAB.DROPOF 03-09 10:41
PROVIDERS: PCP Family Medicine; Visit Provider Family Medicine
DX: R97.20 Elevated prostate specific antigen [PSA]
CPT/HCPCS: 84153

== ENCOUNTER 2024-11-28 14:42 | Outpatient (CLI) | payer OTHER, SELFPAY ==
[2024-11-28 17:36] LABS: Basophils # 0.1 K/mm3 (0-0.2); Basophils % 1.3 % (0.1-2.0); Eosinophils # 0.2 K/mm3 (0.0-0.4); Eosinophils % 4.9 % (0.1-12.0); Hematocrit 41.4 % (42.0-52.0); Hemoglobin 14.2 g/dL (14.1-18.0); Lymphocytes # 1.6 K/mm3 (0.7-4.5); Lymphocytes % 34.8 % (10-50); Mean Corpuscular HGB Conc 34.3 g/dL (31.8-35.4); Mean Corpuscular Volume 90.4 fl (80-94); Mean Platelet Volume 9.5 fl (7.4-10.4); Monocytes # 0.4 K/mm3 (0.1-1.0); Monocytes % 8.5 % (1.7-9.3); Neutrophils # 2.2 K/mm3 (1.8-7.8); Neutrophils % 50.3 % (37.0-80.0); Platelet Count 317 K/mm3 (142-424); Red Blood Count 4.58 M/mm3 (4.60-6.20); Red Cell Distribution Width 12.2 % (11.5-17.5); White Blood Count 4.5 K/mm3 (4.8-10.8)
[2024-11-28 18:22] LABS: Alanine Aminotransferase 14 U/L (12-78); Albumin Level 4.1 g/dl (3.5-5.0); Albumin/Globulin Ratio 1.7 (1.1-1.8); Alkaline Phosphatase 68 U/L (38-126); Aspartate Amino Transferase 20 U/L (17-59); Bilirubin,Total 0.8 mg/dl (0.2-1.3); Blood Urea Nitrogen 7 mg/dl (9-20); Calcium 9.6 mg/dl (8.4-10.2); Carbon Dioxide 31 mmol/L (22.0-30.0); Chloride 102 mmol/L (98-107); Chol/HDL Ratio 3.5 (1-3.5); Cholesterol 147 mg/dl (140-200); Estimated Glomerular Filt Rate 114 ml/min (>60); GFR (African American) 138 ML/MIN (>60); Globulin 2.4 g/dL (1.3-3.2); Glucose 86 mg/dl (74-100); HDL Cholesterol 42 mg/dl (40-60); Sodium 139 mmol/L (136-145); Total Protein,Serum 6.5 g/dl (6.3-8.2); Triglycerides 84 mg/dl (30-150); VLDL Cholesterol 17 mg/dL (0-40)
[2024-11-28 18:33] LABS: Direct LDL Cholesterol 74.62 mg/dL (100-129)
== END 2024-11-28 23:59 | disposition home or self-care (01) ==
LOC: LAB.DROPOF 11-29 14:45
PROVIDERS: PCP Family Medicine; Visit Provider Family Medicine
DX: J42 Unspecified chronic bronchitis (principal); I25.118 Atherosclerotic heart disease of native coronary artery with other forms of angina pectoris; R97.20 Elevated prostate specific antigen [PSA]
CPT/HCPCS: 80053; 80061; 85025

== ENCOUNTER 2025-01-03 15:09 | Outpatient (CLI) | payer OTHER, SELFPAY ==
--- OUTSIDE RECORDS SUMMARY | 2025-01-03 15:12 | XMS_ITS | Data Portability ---
Author Organization [facility] [place] Address [address] [place] [address] Assessment No assessment recorded. Plan of Treatment Reminders Order Date Submit Date Provider Last Modified By Organization Details Last Modified Time Details Appointments OV NEW 15 2024 01:00P Mcihael Main Jr, MD Not available Not available Not available Lab None recorded. Referral None recorded. Procedures None recorded. Surgeries None recorded. Imaging None recorded. Medication Orders tamsulosi n 0.4 mg capsule 2022 023 [email or web address] Not available 10/30/2022 07:46:23 Patient TargetsNo targets recorded. Patient InstructionsNo instructions recorded. Reason for Referral None Reported. Results Created Date Observation Date Name Description Value Unit Range Abnormal Flag Note LastModifiedBy Organization Detail LastModifiedTime 11/18/1911/17/2022 BASIC METAB OLIC PANEL sodium 140 mmol/ L 137-14 7 Not Available [facility] ([facility]) [address] [place] [address] [place], [address], 11/17/2022 17:28:59 11/18/1911/17/2022 BASIC METAB OLIC PANEL potassium 4.3 mmol/ L 3.5-5. 1 Not Available [facility] (Pre[facility]) [address] [place] [address] [place], [address], 11/17/2022 17:28:59 11/18/1911/17/2022 BASIC METAB OLIC PANEL chloride 106 mmol/ L 98-110 Not Available [facility] (Pre-Op Clinic) [address] [place] [address] [place], [address], 11/17/2022 17:28:59 11/18/19 23 11/17/2022 BASIC METAB OLIC PANEL carbon dioxide 31 mmol/ L 21-30 high Not Available [facility] ([facility]Op [facility]) [address] [facility] [place], [address], 11/17/2022 17:28:59 11/18/19 23 11/17/2022 BASIC METAB OLIC PANEL anion gap 3 mmol/ L 6-14 low Not Available [facility] ([facility]Op [facility]) [address] [facility] [place], [address], 11/17/2022 17:28:59 11/18/19 23 11/17/2022 BASIC METAB OLIC PANEL glucose 71 mg/dL 70-115 Not Available [facility] ([facility]) [address] [place] [address] [place], [address], 11/17/2022 17:28:59 11/18/19 23 11/17/2022 BASIC METAB OLIC PANEL BUN 11 mg/dL 9-20 Not Available [facility] ([facility]) [address] [place] [address] [place], [address], 11/17/2022 17:28:59 11/18/19 23 11/17/2022 BASIC METAB OLIC PANEL creatinine 0.9 mg/dL 0.5-1. 5 Not Available [facility] ([facility]) [address] [place] [address] [place], [address], 11/17/2022 17:28:59 11/18/19 23 11/17/2022 BASIC METAB OLIC PANEL BUN/creatini ne ratio 12 ratio 10-20 Not Available [facility] ([facility]Op [facility]) [address] [place] [address] [place], [address], 11/17/2022 17:28:59 11/18/19 23 11/17/2022 BASIC METAB OLIC PANEL glom filtration rate 91 mL/mi n >60- Not Available [facility] ([facility]) [address] [place] [address] [place], [address], 11/17/2022 17:28:59 11/18/19 23 11/17/2022 BASIC METAB OLIC PANEL osmolality (calculated) 289 mosmo l/kg 275-30 1 OSMOL ALITY IS A CALCU LATIO N UTILI ZING THE SERUM /PLAS MA SODIU M, GLUCO SE AND UREA NITRO GEN (BUN) LEVEL S. FOR THE MOST ACCUR ATE RESUL T A MEASU RED SERUM OSMOL ALITY IS SUGNASIMA MARREROD. Not Available [facility] ([facility]Op [facility]) [address] [place] [address] [place], [address], 11/17/2022 17:28:59 11/18/19 23 11/17/2022 BASIC METAB OLIC PANEL calcium 9.1 mg/dL 8.5-10 .8 Not Available [facility] ([facility]) [address] [place] [address] [place], [address], 11/17/2022 17:28:59 11/18/19 23 11/17/2022 BASIC METAB OLIC PANEL note Unles s other soliman noted testi ng perfo rmed at: [facility] [address] [place] [address] Gomez guadalupe MD Not Available [facility] ([facility]Op [facility]) [address] [place] [address] [place], [address], 11/17/2022 17:28:59 11/19/19 23 11/18/2022 RFS-P ATHOL OGY SPECI MEN REQUE ST pathreq Patho logy [address] [place] [address] Phone or [phone] Fax García cardoza Jr., M.D., Medic al Direc tor [facility] [address] : [place] [address] Phone Numbe r: [phone] Gomez guadalupe M.D. PATHO LOGY REPOR T Patie nt Name: SERGIO SNELL Date of : 1959 Age/S ex: 62/M Accou nt Numbe r: [id number] Medic al Recor d Numbe r: [id number] Order ing MD: WADE MAIN AM Date Colle cted : 2022 Date Recei selin : 2022 Date Repor lisa : 2022 Exam: Biops y Acces pauline# : [id number] Labor atory #: [id number] Copie s To: Techn ician : Clini herbie [facility] lisa prost ate speci fic antig en [...] [place] [address] BodyS ite PROST ATE, NEEDL E CORE [...] [place] [address] BodyS ite PROST ATE, NEEDL E CORE [...] [place] [address] BodyS ite PROST ATE, NEEDL E CORE [...] cores of fibro muscu lar prost atic slaed a into which are embed ded benig [...] [place] [address] BodyS ite PROST ATE, NEEDL E CORE [...] [place] [address] ;8834 4 BodyS ite PROST ATE, NEEDL [...] [place] [address] BodyS ite PROST ATE, NEEDL E CORE [...] [place] [address] BodyS ite PROST ATE, NEEDL E CORE [...] [place] [address] BodyS ite PROST ATE, NEEDL E CORE [...] [place] [address] BodyS ite PROST ATE, NEEDL E CORE [...] [place] [address] BodyS ite PROST ATE, NEEDL E CORE [...] [place] [address] BodyS ite PROST ATE, NEEDL E CORE [...] tion rende red by Gomez guadalupe Jr., MEmanuel. at [facility] , [address] [place] [address] . Final Diagn osis BENIG N PROST ATE TISSU E EJT/[place] [address] Legal ly authe ntica lisa by GOMEZ JAMES MD 11-20 11:37 :00 Not Available [facility] ([facility]) [address] [place] [address], [place], [address], 11/20/2022 11:59:36 11/21/19 23 11/17/2022 elect melvina diogr am No observ ation record ed. [email or web address] Not Available 11/21 12:20:30 Result Notes None recorded. Problems Name Problem SNOMED Code Status Onset Date Resolution Date Notes Provider Name and Address Organization Details Recorded Time Chronic obstructive pulmonary disease 09103347 Active 2022 Brit [place], [place] - [facility] - [place] & [place] 14:40:08 Problem Notes None recorded. Procedures Surgical History None recorded. Imaging Results Imaging Date Name Status LastModified by Organization Details LastModified Time 11/17/2022 electrocardiogram completed [email or web address] Informa tion not available 11/21/2022 12:20:30 Procedure [...] Updated DateTime 10/29/2022 175.26 cm 20.7 kg/m2 20555.93 g 97.7 [degF] Brit Vanegas [facility] & [place] 10/29/2022 14:39:55 Social History Question Answer Notes LastModified by Organizat ion Details LastModified Time Tobacco Smoking Status Smoker, Current Status Unknown Brit Vanegas [facility] & [place] 10/29/2022 14:40:32 How Much Tobacco Do You Smoke? 1 PPW [email or web address] Information not available 10/29/2022 How Many Years Have You Smoked Tobacco? 20 [email or web address] Information not available 10/29/2022 Sex: Unknown Functional Status None recorded. Mental Status None recorded. Family History Nothing Reported. Medical History No medical history recorded. Past Encounters Encounter ID Performer Location Encounter Start Date Encounter Closed Date Diagnosis/Indication Diagnosis SNOMED-CT Code Diagnosis ICD10 Code Diagnosis Note [id number] Maulik Main Jr, MD [facility] [address] [address] 10/29/2022 14:21:15 10/29/2022 15:18:25 Prostate specific antigen above reference range 536948826 R97.20 patient's recent PSA reported as 9. 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 Patient has a history of coronary artery disease and COPD. He had stents placed several years ago and was previously on Plavix and aspirin. Maulik Main Jr, MD [address] [place] [address], [address], [place], [address], [facility] - [place] & [place] 10/29/2022 15:54:32
--- NOTE | 2025-01-03 15:13 | XR_ITS ---
FINAL REPORT TECHNIQUE: Chest PA & Lateral CLINICAL HISTORY: SOB COMPARISON: 08/11/2024 FINDINGS: 2 views of the chest were performed. The heart size is normal. The mediastinum is within normal limits. The lungs are hyperinflated. There is flattening of the hemidiaphragm. There is abnormal lucency in the upper lobes. There are no pleural effusions. There is no pneumothorax. The bony thorax appears intact. IMPRESSION: Findings consistent with advanced changes of centrilobular emphysema. Reviewed, Interpreted and Dictated by Checo Ballesteros MD Transcribed by Adilene Jurado Authenticated and [facility]
== END 2025-01-03 23:59 | disposition home or self-care (01) ==
LOC: RAD 15:10
PROVIDERS: PCP Family Medicine; Visit Provider Internal Medicine Pulmonary Disease
DX: J43.2 Centrilobular emphysema (principal)
CPT/HCPCS: 71046

== ENCOUNTER 2025-02-07 09:06 | Outpatient (CLI) | payer OTHER, SELFPAY ==
--- OUTSIDE RECORDS SUMMARY | 2025-02-08 10:52 | XMS_ITS | Data Portability ---
Author Organization [facility] Address [address] [facility] [address] [place] [address] Care Team Providers Care Clinical Rn Name Role Phone [facility] Primary Care Provider Assessment Encounter Date Assessment Date Assessment LastModified by Organization Details LastModified Time 08/28/2022 08/28/2022 Medical management of lower urinary symptoms with tamsulosin. Complete antibiotic course with levofloxacin. Patient has erectile dysfunction and takes sildenafil 50 mg as needed. PSA order entered for [facility]. [email or web address] Not available 08/28/2022 15:12:28 Plan of Treatment Reminders Order Date Submit Date Provider Last Modified By Organization Details Last Modified Time Details Appointments None recorded. Lab PSA, serum or plasma 2022 023 [facility]), [address] [place] [address] [address], [place], [address], 3 15:20:14 Referral None recorded. Procedures None recorded. Surgeries None recorded. Imaging None recorded. Medication Orders tamsulosin 0.4 mg capsule 2022 023 [facility], [place], [address], 3 15:11:08 Patient TargetsNo targets recorded. Patient InstructionsNo instructions recorded. Reason for Referral None Reported. Results Created Date Observation Date Name Description Value Unit Range Abnormal Flag Note LastModifiedBy Organization Detail LastModifiedTime Result Notes None recorded. Medical Equipment None Reported. Allergies No known drug allergies Medications Name Sig Start Date Stop Date Status Note LastModified by Organization Details LastModified Time tamsulosin 0.4 mg capsule Take 1 capsule every day by oral route for 90 days. 2022 active Not Available Not Available Not Avai lable levofloxacin active Not Available Not Available Not Available Vitals Date Recorded Body height Body mass index (BMI) Body weight Provider Name and Address Organization Details Last Updated DateTime 08/28/2022 175.26 cm 19.9 kg/m2 38255.97 g Erin Buck [facility] 08/28/2022 15:05:54 Social History Question Answer Notes LastModified by Organizat ion Details LastModified Time Tobacco Smoking Status Former Smoker Erin Buck [facility] 08/28/2022 15:08:13 What Was The Date Of Your Most Recent Tobacco Screening? 08/28/2022 Information not available 08/28/2022 What Is Your Relationship Status? Single Information not available 08/28/2022 Sex: Unknown Functional Status Question Answer Note LastModified by Organization D etails LastModified Time What is your level of alcohol consumption? None Information not available 08/28/2022 Mental Status None recorded. Family History Relationship Description Onset Age of this Age Resolved Age Notes LastModified by Organization Details LastModified Time Father No current problems or disability Not available 08/28 15:06:43 Mother No current problems or disability Not available 08/28 15:06:43 Medical History Condition Response Chronic Obstructive Pulmonary Disease Y Past Encounters Encounter ID Performer Location Encounter Start Date Encounter Closed Date Diagnosis/Indication Diagnosis SNOMED-CT Code Diagnosis ICD10 Code Diagnosis Note [id number] MORELIA SHI MD [facility] [address] [address] 08/28/2022 15:04:56 09/03/2022 11:18:21 Benign prostatic hyperplasia with outflow obstruction 851385043 N40.1 Delay when starting to pass urine 0986832 R39.11 Health Concerns Section Related Observation LastModified by Organization Detai ls LastModified Time None Recorded Concern Status LastModified by Organization Details LastModified Time None Recorded Advance Directives Directive None Recorded Payers Insurance Date Sequence Insurance Name Policy Number Policy Flowers Covered Member ID Flowers Member ID Guarantor Name 09/29/2022 1 [place] [id number] aCli Hewitt Michealsharda [id number] Cali Min Notes Date Note Type Note Provider Name and Address Organization Details Recorded Time 08/28/2022 text/html 62-year-old male in the office for my initial evaluation for discussion of benign prostatic hyperplasia with lower urinary symptoms. He voids only 2-3 times daily with occasional nocturia. He reports hesitancy. No urgency. No hematuria. Previously had dysuria. He was been treated with levofloxacin. Previously he had been seen with Dr. Main and treated for history of prostatitis with Cipro. MORELIA SHI MD [address] [place] [address], [phone], [facility] 08/28/2022 15:12:49
--- OUTSIDE RECORDS SUMMARY | 2025-02-08 10:53 | XMS_ITS | Clinical Summary ---
Author Organization Healthcare Address [address] [place] [address] Care Team Providers Care Environmental Planner Name Role Phone Renaldo Gold MD Primary Care Provider [phone] Family History Medical History Relation Name Comments Other cancer Other 1 Heart attack Other 2 Relation Name Status Comments Other 1 Other 2 Social History Tobacco Use Types Packs/Day Years Used Date Smoking Tobacco: Never Assessed Alcohol Use Standard Drinks/Week Comments No 0 (1 standard drink = 0.6 oz pure alcohol) Alcoholic Drinks/day: Denies alcohol consumption Sex and Gender Information Value Date Recorded Sex Assigned at Not on file Legal Sex Male 7:53 PM EDT Gender Identity Not on file Sexual Orientation Not on file Last Filed Vital Signs Vital Sign Reading Time Taken Comments Blood Pressure 109/75 11/29/2018 10:32 AM EDT Pulse 87 11/29/2018 10:32 AM EDT Temperature 36.2 C (97.1 F) 11/29/2018 10:32 AM EDT Respiratory Rate 16 11/29/2018 10:32 AM EDT Oxygen Saturation - - Inhaled Oxygen Concentration - - Weight 64.1 kg (141 lb 6.1 oz) 11/29/2018 10:32 AM EDT Height 175.3 cm (5' 9 ) 11/29/2018 10:32 AM EDT Body Mass Index 20.88 11/29/2018 10:32 AM EDT Plan of Treatment Health Maintenance Due Date Last Done Comments Dental Oral Exam 1962 Dental Prophylaxis 1962 Dental X-Ray: Bitewings 1962 Dental X-Ray: Full Mouth 1962 [facility]-Depression Screening 1962 [facility]-/Child/Adol SDOH Screenings 1962 [facility]- SDOH Screenings 1980 [facility]-Adult SDOH Screenings 1980 [facility]-DTaP,Tdap,and Td Vaccine s (1 - Tdap) 1981 CT Colonography 2007 Colonoscopy 2007 FIT-DNA 2007 FIT 2007 FOBT 2007 Sigmoidoscopy 2007 [facility]-Colorectal Cancer Screening 2007 [facility]-Pneumococcal Vaccine: 50 + Years (1 of 1 - PCV) 2012 [facility]-Zoster Vaccines (1 of 2) 2012 [id number] Vaccine (1 - 20 24-25 season) 2024 [facility]-Influenza Vaccine (Seaso n Ended) 2025 [facility]-RSV Vaccine: 60+ Years o r (1 - 1-dose 75+ series) 2037 HPV Vaccines Aged Out No longer eligi ble based on patient's age to complete this topic [facility]-HIB Vaccines Aged Out No longer e ligible based on patient's age to complete this topic [facility]-Hepatitis A Vaccines Aged Out No longer eligible based on patient's age to complete this topic [facility]-IPV Vaccines Aged Out No longer e ligible based on patient's age to complete this topic [facility]-Rotavirus Vaccines Aged Out No lo nger eligible based on patient's age to complete this topic Care Teams Environmental Planner Relationship Specialty Start Date End Date Renaldo Gold MD [address] [facility] [place] [address] PCP - General 01/04/21
--- OUTSIDE RECORDS SUMMARY | 2025-02-08 10:53 | XMS_ITS | Data Portability ---
Author Organization [facility] [place] Address [address] [place] [address] Assessment No assessment recorded. Plan of Treatment Reminders Order Date Submit Date Provider Last Modified By Organization Details Last Modified Time Details Appointments None recorded. Lab None recorded. Referral None recorded. Procedures None recorded. Surgeries None recorded. Imaging None recorded. Medication Orders tamsulosin 0.4 mg capsule 2022 023 6 Not available 07:46:23 Patient TargetsNo targets recorded. Patient InstructionsNo instructions recorded. Reason for Referral None Reported. Results Created Date Observation Date Name Description Value Unit Range Abnormal Flag Note LastModifiedBy Organization Detail LastModifiedTime 11/18/1911/17/2022 BASIC METAB OLIC PANEL sodium 140 mmol/ L 137-14 7 Not Available [facility] (Pre-Op Clinic) [address] [place] [address] [place], [address], 11/17/2022 17:28:59 11/18/1911/17/2022 BASIC METAB OLIC PANEL potassium 4.3 mmol/ L 3.5-5. 1 Not Available [facility] (Pre-Op Clinic) [address] [place] [address] [place], [address], 11/17/2022 17:28:59 11/18/19 23 11/17/2022 BASIC METAB OLIC PANEL chloride 106 mmol/ L 98-110 Not Available [facility] (Pre-Op Clinic) [address] [place] [address] [place], [address], 11/17/2022 17:28:59 11/18/19 23 11/17/2022 BASIC METAB OLIC PANEL carbon dioxide 31 mmol/ L 21-30 high Not Available [facility] (Pre-Op Clinic) [address] [facility] [place], [address], 11/17/2022 17:28:59 11/18/19 23 11/17/2022 BASIC METAB OLIC PANEL anion gap 3 mmol/ L 6-14 low Not Available [facility] (Pre-Op Clinic) [address] [place] [address] [place], [address], 11/17/2022 17:28:59 11/18/19 23 11/17/2022 BASIC METAB OLIC PANEL glucose 71 mg/dL 70-115 Not Available [facility] (Pre-Op Clinic) [address] [place] [address] [place], [address], 11/17/2022 17:28:59 11/18/19 23 11/17/2022 BASIC METAB OLIC PANEL BUN 11 mg/dL 9-20 Not Available [facility] (Pre-Op Clinic) [address] [place] [address] [place], [address], 11/17/2022 17:28:59 11/18/19 23 11/17/2022 BASIC METAB OLIC PANEL creatinine 0.9 mg/dL 0.5-1. 5 Not Available [facility] (Pre-Op Clinic) [address] [place] [address] [place], [address], 11/17/2022 17:28:59 11/18/19 23 11/17/2022 BASIC METAB OLIC PANEL BUN/creatini ne ratio 12 ratio 10-20 Not Available [facility] (Pre-Op Clinic) [address] [place] [address] [place], [address], 11/17/2022 17:28:59 11/18/19 23 11/17/2022 BASIC METAB OLIC PANEL glom filtration rate 91 mL/mi n >60- Not Available [facility] (Pre-Op Clinic) [address] [place] [address] [place], [address], 11/17/2022 17:28:59 11/18/19 23 11/17/2022 BASIC METAB OLIC PANEL osmolality (calculated) 289 mosmo l/kg 275-30 1 OSMOL ALITY IS A CALCU LATIO N UTILI ZING THE SERUM /PLAS MA SODIU M, GLUCO SE AND UREA NITRO GEN (BUN) LEVEL S. FOR THE MOST ACCUR ATE RESUL T A MEASU RED SERUM OSMOL ALITY IS SUGGE STED. Not Available [facility] (Pre-Op Clinic) [address] [place] [address] [place], [address], 11/17/2022 17:28:59 11/18/19 23 11/17/2022 BASIC METAB OLIC PANEL calcium 9.1 mg/dL 8.5-10 .8 Not Available [facility] (Pre-Op Clinic) [address] [place] [address] [place], [address], 11/17/2022 17:28:59 11/18/19 23 11/17/2022 BASIC METAB OLIC PANEL note Unles s other soliman noted testi ng perfo rmed at: [facility] [address] [place] [address] Gomez guadalupe MD Not Available [facility] (Pre-Op Clinic) [address] [place] [address] [place], [address], 11/17/2022 17:28:59 11/19/19 23 11/18/2022 RFS-P ATHOL OGY SPECI MEN REQUE ST pathreq Patho logy [address] [place] [address] Phone or [phone] Fax García cardoza Jr., M.D., Medic al Direc tor [facility] [address] : [place] [address] Phone Numbe r: [phone] Gomez guadalupe M.D. PATHO LOGY REPOR T Patie nt Name: SERGIO SNELL Date of : 1959 Age/S ex: 62/M Accou nt Numbe r: [id number] Medic al Recor d Numbe r: [id number] Order ing MD: WADE MAIN AM Date Colle cted : 2022 Date Recei selin : 2022 Date Repor lisa : 2022 Exam: Biops y Acces pauline# : [id number] Labor atory #: [id number] 6 Copie s To: Techn ician : Clini herbie Histo ry [place] lisa prost ate speci fic antig en [...] [place] [address] BodyS ite PROST ATE, NEEDL E CORE BIOPS Y Legal ly authe ntica lisa by OGMEZ JAMES MD 11-20 11:37 :00 SubSi te [...] [place] [address] BodyS ite PROST ATE, NEEDL E CORE [...] [place] [address] BodyS ite PROST ATE, NEEDL E CORE [...] [place] [address] BodyS ite PROST ATE, NEEDL E CORE [...] [place] [address] ;8834 4 BodyS ite PROST ATE, NEEDL [...] [place] [address] BodyS ite PROST ATE, NEEDL E CORE [...] [place] [address] BodyS ite PROST ATE, NEEDL E CORE [...] [place] [address] BodyS ite PROST ATE, NEEDL E CORE [...] [place] [address] BodyS ite PROST ATE, NEEDL E CORE [...] [place] [address] BodyS ite PROST ATE, NEEDL E CORE [...] cores of fibro muscu lar prost atic lsade a into which are embed ded benig [...] [place] [address] BodyS ite PROST ATE, NEEDL E CORE [...] tion rende red by Gomez guadalupe Jr., M.D. at [facility] Medic [facility] , [address] [place] [address] . Final Diagn osis BENIG N PROST ATE TISSU E EJT/[place] [address] Legal ly authe ntica lisa by GOMEZ JAMES MD 11-20 11:37 :00 Not Available [facility] (Pre-Op Clinic) [address] [place] [address] [place], [address], 11/20/2022 11:59:36 11/21/19 23 11/17/2022 elect melvina north am No observ ation record ed. [email or web address] Not Available 11/21 12:20:30 Result Notes None recorded. Problems Name Problem SNOMED Code Status Onset Date Resolution Date Notes Provider Name and Address Organization Details Recorded Time Chronic obstructive pulmonary disease 93652379 Active 2022 [facility] - [facility] - [place] & [place] 3 14:40:08 Problem Notes None recorded. Medical Equipment None Reported. [...] Updated DateTime 10/29/2022 175.26 cm 20.7 kg/m2 33277.93 g 97.7 [degF] Brit Vanegas [place] - [facility] & [place] 10/29/2022 14:39:55 Social History Question Answer Notes LastModified by Organizat ion Details LastModified Time Tobacco Smoking Status Smoker, Current Status Unknown Brit Vanegas null, C[facility] - [facility] & [place] 10/29/2022 14:40:32 How Much Tobacco Do You Smoke? 1 PPW Information not available 10/29/2022 How Many Years Have You Smoked Tobacco? 20 [email or web address] Information not available 10/29/2022 Sex: Unknown Functional Status None recorded. Mental Status None recorded. Family History Nothing Reported. Medical History No medical history recorded. Past Encounters Encounter ID Performer Location Encounter Start Date Encounter Closed Date Diagnosis/Indication Diagnosis SNOMED-CT Code Diagnosis ICD10 Code Diagnosis Note [id number] Maulik Main Jr, MD [facility] [address] [address] 10/29/2022 14:21:15 10/29/2022 15:18:25 Prostate specific antigen above reference range 801550649 R97.20 patient's recent PSA reported as 9. 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 Patient has a history of coronary artery disease and COPD. He had stents placed several years ago and was previously on Plavix and aspirin. Maulik Main Jr, MD [address] [place] [address], [address], [place], [address], [place] - [facility] - [place] 10/29/2022 15:54:32
== END 2025-02-07 23:59 | disposition home or self-care (01) ==
LOC: LAB.DROPOF 02-08 10:46
PROVIDERS: PCP Nurse Practitioner; Visit Provider Nurse Practitioner
DX: N39.0 Urinary tract infection, site not specified (principal)
CPT/HCPCS: 87086

== ENCOUNTER 2025-05-23 14:50 | Outpatient (CLI) | payer OTHER, SELFPAY ==
[2025-05-23 20:39] LABS: Hematocrit 41.3 % (42.0-52.0); Hemoglobin 13.4 g/dL (14.1-18.0); Immature Granulocytes % 0 %; Mean Corpuscular HGB Conc 32.4 g/dL (31.8-35.4); Mean Corpuscular Hemoglobin 29.8 pg (27.0-31.2); Mean Corpuscular Volume 91.8 fl (80-94); Nucleated Red Blood Cells % 0 %; Platelet Count 295 K/mm3 (142-424); Red Blood Count 4.50 M/mm3 (4.60-6.20); Red Cell Distribution Width-SD 41.1 fL; White Blood Count 5.0 K/mm3 (4.8-10.8)
--- OUTSIDE RECORDS SUMMARY | 2025-05-24 12:20 | XMS_ITS | Data Portability ---
Author Organization [facility] Address [address] [facility] [address] [place] [address] Care Team Providers Care Time Piece Repairer Name Role Phone [facility] Primary Care Provider Assessment Encounter Date Assessment Date Assessment LastModified by Organization Details LastModified Time 08/28/2022 08/28/2022 Medical management of lower urinary symptoms with tamsulosin. Complete antibiotic course with levofloxacin. Patient has erectile dysfunction and takes sildenafil 50 mg as needed. PSA order entered for [facility]. [email or web address] Not available 08/28/2022 15:12:28 Plan of Treatment Reminders Order Date Submit Date Provider Last Modified By Organization Details Last Modified Time Details Appointments None recorded. Lab PSA, serum or plasma 2022 023 [facility] ([facility] [address] [place] [address] [address], [place], [address], 3 15:20:14 Referral None recorded. Procedures None recorded. Surgeries None recorded. Imaging None recorded. Medication Orders tamsulosin 0.4 mg capsule 2022 023 [facility] 591, [address], [place], [address], 3 15:11:08 Patient TargetsNo targets recorded. Patient [...] Updated DateTime 08/28/2022 175.26 cm 19.9 kg/m2 93407.97 g Erin Hargrovet [facility] 08/28/2022 15:05:54 Social History Question Answer Notes LastModified by Organizat ion Details LastModified Time Tobacco Smoking Status Former Smoker Erin Buck [facility] 08/28/2022 15:08:13 What [...] Diagnosis SNOMED-CT Code Diagnosis ICD10 Code Diagnosis IMO Codes Diagnosis Note [id number] MORELIA SHI MD [facility] [address] [place] [address] 08/28/2022 15:04:56 09/03/2022 11:18:21 Benign prostatic hyperplasia with outflow obstruction 092044464 N40.1 Delay when starting to pass urine 6627239 R39.11 Health Concerns Section Related Observation LastModified by Organization Detai ls LastModified Time None Recorded Concern Status LastModified by Organization Details LastModified Time None Recorded Advance Directives Directive None Recorded Payers Insurance Date Sequence Insurance Name Policy Number Policy Flowers Covered Member ID Flowers Member ID Guarantor Name 09/29/2022 1 [place] [id number] 6 Cali Min [id number] Cali Min Notes Date Note Type [...] of prostatitis with Cipro. MORELIA SHI MD [address] [place] [address], [address], [facility] 08/28/2022 15:12:49
--- OUTSIDE RECORDS SUMMARY | 2025-05-24 12:20 | XMS_ITS | Clinical Summary ---
Author Organization Healthcare Address [address] [place] [address] Care Team Providers Care Searchlight Operator Name Role Phone Renaldo Gold MD Primary Care Provider [phone] Family History Medical History Relation Name Comments [...] 2012 [facility]-Zoster Vaccines (1 of 2) 2012 [id number]-81 Vaccine (1 - 20 24-25 season) 2025 [facility]-Influenza Vaccine (#1) 2025 [facility]-RSV Vaccine: 60+ [...] age to complete this topic Care Teams Searchlight Operator Relationship Specialty Start Date End Date Renaldo Gold MD [address] [place] [address] PCP - General 01/04/21
== END 2025-05-23 23:59 | disposition home or self-care (01) ==
LOC: LAB.DROPOF 05-24 11:08
PROVIDERS: PCP Student in an Organized Health Care Education/Training Program; Visit Provider Student in an Organized Health Care Education/Training Program
DX: J44.1 Chronic obstructive pulmonary disease with (acute) exacerbation (principal)
CPT/HCPCS: 85025